=== PATIENT | female | born 1955 | race Caucasian/White ===

== ENCOUNTER → 2017-08-11 15:05 | Outpatient (CLI) | payer OTHER, SELFPAY ==
--- NOTE | 2017-08-11 15:08 | RAD_ITS ---
STUDY: X-RAY - RIGHT SHOULDER REASON FOR EXAM: Right shoulder pain. TECHNIQUE: 3 view(s) of the shoulder. COMPARISON: Radiographic report 01/16/2012. FINDINGS: There are small marginal osteophytes of the humeral head without narrowing of the glenohumeral articulation. There is mild acromioclavicular arthrosis. Normal acromion. Normal humeral head and visualized proximal humerus. The soft tissue structures are unremarkable. Normal visualized pulmonary apex. RAD/Shoulder min 2 Views IMPRESSION: Mild acromioclavicular arthrosis. Small marginal osteophytes of the humeral head. Electronically Signed: Jose Francisco Casey MD at 16:31 EST Tel , Service support ,
== END ==
PROVIDERS: Visit Provider Orthopaedic Surgery
DX: M25.511 Pain in right shoulder (principal)
CPT/HCPCS: 73030

== ENCOUNTER 2017-08-19 16:40 | Outpatient (RCR) | payer OTHER, SELFPAY ==
--- NOTE | 2017-08-30 23:43 | HP.PTEVAL ---
Patient's Visit Information PEE FISH is a 61 year old F referred to Physical Therapy by DO MARIBEL Aparicio with a diagnosis of Right rotator cuff syndrome. Date of Evaluation: 08/19/17 Physical Therapist: Yvon Carias - Visit Plan Frequency: 2x /Week Duration: 4 Weeks Plan: Start with phase II end range of motion, add in below shoulder height phase III strengthening. Pt. educated to maintain painfree strengthening/ROM and progress as toelrated. Pt. desires to trial HEP with both phase II and III on own for a few weeks and follow up with PT as needed. - Subjective Subjective: Pt is here today for her initial evaluation with diagnosis of R RTC syndrome, possible imingment, subscap pathology. Pt. denies any mechanism of injury, but started noticing R shoulder pain with popping and cracking, with raising her arm over her head. Pt. has trialed massage therapy without positive results. Pt. reports having increased pain with: lifing over head, reaching behind her back. Pt. reports pain starts at her R shoulder, but does radiate down her arm at times. Pt. denies N/T in either UE. Pt. has not trialed any exercises at this point in time. Pt. does feel weak, but no constant pain. She did have a recent injuection which has helped her symptoms. Pt. is hopeful to reduce symptoms to get back to all recreational activities without limitations. - Pain R shoulder Pain Intensity (Out of 10): 0 Pain Intensity Range: 0, 4 - Objective POSTURE: Pt. has slight rounded shoulder bilaterally. Pt. has normal arm positioning bilaterally. Pt. has slight scapular protraction bilaterally with ability to correct. Pt. has slight FH positioning. PALPATION: Pt. tenderness to palpation of anterior subacromial space. Pt. has no posterior shoulder pain to palpation. No UT or mid boarder scpaular pain. Mild pain at bicipital groove. No gabriella with L shoulder. NO cervical spine pain with palpation. NEUROLOGICAL: Pt. has normal sensation to light and sharp touch throughout bilateral UEs. Pt. has 2+ biceps and triceps DTR bilaterally. ROM: R shoulder- AROM- flexion 170deg mild increase NW at end range only, abd 160deg mild increase NW, functional ER C6 increase NW, functional IR T12 NE. L shoulder flexion 180deg NE, abd 180deg NE, functional ER C6, functional IR T10. Cervical spine- Normal ROM without increase in symptoms. MMT- LUE- wrist/elbow 5/5 throughout; shoulder- flexion 5/5, abd 5/5, ext 5/5, ER 5-/5, IR 5/5. RUE- wrist/elbow- 5/5 throughout NE, shoulder flexion- 4/5 increase NW, abd 4/5 increase NW, ER 4+/5 mild increase NW, IR 4/5 increase NW, ext 5/5 NE. - Special Tests R Shoulder Lift Off Test - Subscapular Tear: Positive R Shoulder Drop Sign - IS Test: Negative R Shoulder Empty Can - SS: Positive R Shoulder Belly Press - SupScap: Positive R Shoulder Neer - Impingement: Positive R Shoulder Wilson Oumar - Impingement: Positive R Shoulder Biceps Load Test - Labrum: Negative R Shoulder Speeds Test - Labrum/Biceps: Negative - Goals Goal 1:: Pt. to be I with HEP. Goal Time Frame: 4-6 Weeks Goal 2:: Pt. to have full R shoulder ROM without increase in symptoms. Goal Time Frame: 4-6 Weeks Goal 3:: Pt. to have increase R shoulder strength by 1/2 grade of all effected musculature to reduce stress on RTC with all functional activities. Goal Time Frame: 4-6 Weeks Goal 4:: Pt. to report no pain with sleeping allowing for increased quality of life. 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 Goal Time Frame: 4-6 Weeks - Rehabilitation Potential Physical Therapy Diagnosis: Pt. has signs and symptoms consistent with RTC pathology with possible subscapular partial tear. Pt. has weakness and pain with subscapularis testing. Pt. would benefit from PT to increase painfree ROM, progressing to increase postural strength, scapular strength and RTC stability in order to complete all ADLs without increase in symptoms. Rehabilitation Potential: Good - Anticipated Interventions Patient/Client Instruction: Educate patient on: Condition, Plan of Care, Risk Factors, Benefits of Fitness Program For the Purpose of:: To foster healthy habits, To improve decision making, To facilitate caregiver knowledge, To improve self management, To prevent re-injury, To improve ability to perform tasks related to life management, To improve tolerance to ADL's Therapeutic Exercise to Include: Strength training, Power training, Postural training, Flexibilty training, Passive ROM, Active ROM, Scapular Strength/Stabilization For the Purpose of:: To decrease pain, To decrease swelling/inflammation, To increase ROM, To improve nutrient delivery to tissue, To increase oxygenation perfusion, To improve muscle performance and motor function, To improve performance and independence with ADL's, To improve health of tissue, To decrease soft tissue restriction, To increase flexibility/ROM Manual Therapy Techniques to Include: Mobilization, Passive ROM For the Purpose of:: To decrease pain, To increase ROM, To improve nutrient delivery to tissue, To increase oxygenation perfusion, To improve muscle performance and motor function Thank you for the opportunity to evaluate your patient. For Medicare and Medicare HMO plans, please review the plan of care and approve it. It will need to be FAXED BACK to us at [phone] for Medicare purposes. Please let me know if there are questions or concerns regarding this plan of care. Physician Signature: Date:
--- NOTE | 2017-11-15 19:49 | HP.PTDCNRP_ITS ---
HP - Discharge Summary (1) - Patient Information PEE FISH was seen in my office for initial evaluation on 08/19/17. The following Plan of Care was established for this patient: Initial Frequency: 2x /Week Initial Duration: 4 Weeks - Anticipated Interventions Patient/Client Instruction: Educate patient on: Condition, Plan of Care, Risk Factors, Benefits of Fitness Program For the Purpose of:: To foster healthy habits, To improve decision making, To facilitate caregiver knowledge, To improve self management, To prevent re-injury , To improve ability to perform tasks related to life management, To improve tolerance to ADL's Therapeutic Exercise to Include: Strength training, Power training, Postural training, Flexibilty training, Passive ROM, Active ROM, Scapular Strength/ Stabilization For the Purpose of:: To decrease pain, To decrease swelling/inflammation, To increase ROM, To improve nutrient delivery to tissue, To increase oxygenation perfusion, To improve muscle performance and motor function, To improve performance and independence with ADL's, To improve health of tissue, To decrease soft tissue restriction, To increase flexibility/ROM Manual Therapy Techniques to Include: Mobilization, Passive ROM For the Purpose of:: To decrease pain, To increase ROM, To improve nutrient delivery to tissue, To increase oxygenation perfusion, To improve muscle performance and motor function This patient was last seen in our office 08/19/17. Pertinent comments regarding their Physical therapy will appear below: Pt. was seen for her initial evaluation with diagnosis fo RTC pathology. Pt. had signs of subscap issues. Pt. at this point in time desired to trial HEP on own and not formal PT. Pt.has not been seen in ~12 weeks and will be DC from PT at this point in time. At this point I will be discontinuing this patient from physical therapy. I would be happy to see this patient again in the future if found appropriate by the physician. Thank you! Yvon Carias
== END 2017-08-19 19:00 | disposition home or self-care (01) ==
LOC: PT 16:40
PROVIDERS: Family Provider Family Medicine; PCP Family Medicine; Visit Provider Orthopaedic Surgery
DX: M75.101 Unspecified rotator cuff tear or rupture of right shoulder, not specified as traumatic (principal); M25.811 Other specified joint disorders, right shoulder
CPT/HCPCS: 97110; 97161

== ENCOUNTER → 2017-10-27 17:38 | Outpatient (CLI) | payer OTHER, SELFPAY ==
--- NOTE | 2017-10-27 17:51 | MRI_ITS ---
STUDY: MRI RIGHT SHOULDER REASON FOR EXAM: Right shoulder pain, decreased range of motion, no specific injury. TECHNIQUE: Standardized fat and water weighted pulse sequences were obtained in all 3 orthogonal planes. COMPARISON: Radiographs 08/11/2017. FINDINGS: There is mild supraspinatus tendinosis (proton-density coronal images 11, 12) without discrete tendon tear. Normal infraspinatus tendon. There is mild subscapularis tendinosis (proton density axial images 11, 12) without discrete tendon tear. Normal teres minor tendon. Normal supraspinatus muscle. Normal infraspinatus muscle. Normal subscapularis muscle. Normal teres minor muscle. There is mild glenohumeral arthrosis with small marginal osteophytes of the humeral head and mild chondral irregularity (T2 coronal image 11). There is a small glenohumeral joint effusion. There is mild cystic change of the greater tuberosity. Normal biceps labral complex. Normal intracapsular long biceps tendon. Normal labrum. Normal capsulo- ligamentous complex. There is mild acromioclavicular arthrosis without undersurface osteophytes (T2 sagittal image 8). There is a Type I morphology (flat undersurface), with a neutral orientation. There is no subacromial-subdeltoid bursal fluid. Normal visualized coracohumeral and coracoacromial ligaments. Normal deltoid muscle. Normal trapezius muscle. MRI/Upper Ext Joint Only(Routine) IMPRESSION: Mild supraspinatus and subscapularis tendinosis without demonstrated rotator cuff tear. Mild glenohumeral arthrosis. Mild acromioclavicular arthrosis. Small glenohumeral joint effusion. Electronically Signed: Jose Francisco Casey MD at 7:49 EDT Tel , Service support ,
== END ==
PROVIDERS: Family Provider Family Medicine; PCP Family Medicine; Visit Provider Orthopaedic Surgery
DX: M75.101 Unspecified rotator cuff tear or rupture of right shoulder, not specified as traumatic (principal)
CPT/HCPCS: 73221

== ENCOUNTER → 2017-12-04 14:45 | Outpatient (CLI) | payer OTHER, SELFPAY ==
[2017-12-04 15:34] LABS: Absolute Lymphocyte Count 1.18 X10^3/ul (0.83-4.51); Absolute Neutrophil Count 5.6 X10^3/uL (2.0-7.7); Basophil# 0.02 X10^3/uL; Basophil% 0.3 % (0-1); Eosinophil# 0.14 X10^3/uL; Eosinophils% 1.8 % (0-5); Hematocrit 38.7 % (37-47); Hemoglobin 12.5 g/dl (12.0-15.0); Lymphocyte # 1.18 X10^3/ul (4.0); Lymphocyte % 15.5 % (19-41); Mean Corp Hgb Conc 32.3 g/gl (32-36); Mean Corpuscular Hgb 26.4 pg (27.0-32.0); Mean Corpuscular Volume 81.8 fL (81-99); Mean Platelet Vol. 10.7 fl (6.2-12.0); Monocyte# 0.61 X10^3/uL; Neutrophil # 5.63 X10^3/uL (2.7-7.7); Neutrophil % 74.1 % (47-70); Platelet Count 241 K/mm3 (150-450); RBC Distribution Width CV 14.9 % (11.6-14.6); RBC Distribution Width SD 44.8 fl (35.1-43.9); Red Blood Count 4.73 M/mm3 (4.2-5.4); White Blood Count 7.6 K/mm3 (4.4-11.0)
[2017-12-04 15:39] LABS: POSITIVE COUNT NO; POSITIVE DIFFERENTIAL NO; POSITIVE MORPHOLOGY NO
[2017-12-04 16:01] LABS: ALB/GLOB Ratio 0.9 RATIO (0.9-2.4); AST(SGOT) 19 U/L (15-37); Alanine Aminotransfer ALT/SGPT 27 U/L (13-56); Albumin, Serum 3.5 g/dL (3.2-5.0); Alkaline Phosphatase 79 U/L (45-117); Anion Gap 5 (5-15); BUN 19 mg/dL (7-18); BUN/Creat Ratio 19.6 RATIO (10-20); Calcium,Total 9.1 mg/dL (8.5-10.1); Chloride 104 mmol/L (98-107); Cholesterol 203 mg/dL (200); Creatinine, Serum 0.97 mg/dL (0.55-1.02); EST Glomerular Filtration Rate 62 mL/min (>60); Est Glom Filt Rate - Afr Amer 75 mL/min (>60); Glucose 84 mg/dL (74-106); High Density Lipoprotein 60 mg/dL; Potassium 3.8 mmol/L (3.5-5.1); Protein, Total 7.5 g/dL (6.4-8.2); Sodium Level 138 mmol/L (136-145); Thyroid Stim Hormone (TSH) 1.12 uIU/mL (0.358-3.74); Triglycerides 245 mg/dL; Very Low Density Lipoprotein 49 mg/dL (5-40)
== END ==
PROVIDERS: Family Provider Family Medicine; PCP Family Medicine; Visit Provider Family Medicine
DX: R53.83 Other fatigue (principal); R53.81 Other malaise
CPT/HCPCS: 36415; 80053; 80061; 84443; 85025

== ENCOUNTER → 2017-12-29 08:11 | Outpatient (CLI) | payer OTHER, SELFPAY ==
--- NOTE | 2017-12-29 08:14 | BD_ITS ---
STUDY: DUAL ENERGY X-RAY ABSORPTIOMETRY / DXA REASON FOR EXAM: Female, 62 years old. Early menopause. No loss of height. TECHNIQUE: Bone Mineral Density (BMD) measurements of lumbar spine and bilateral hips were obtained. COMPARISON: Comparison is made with prior study dated January 30, 2011. FINDINGS: Lumbar Spine (L1-L4): g/cm2 (0.867) / T-score (-2.5) / Z-score (-1.1) Findings are suggestive of osteopenia with a moderate fracture risk. Left Femur Total: g/cm2 (0.906) / T-score (-0.8) / Z-score (0.2) Left Femoral Neck: g/cm2 (0.889) / T-score (-1.1) / Z-score (0.2) Right Femur Total: g/cm2 (0.928) / T-score (-0.6) / Z-score (0.4) Right Femoral Neck: g/cm2 (0.977) / T-score (-0.4) / Z-score (0.9) The T-Scores on the most recent prior examination were: Lumbar Spine (L1-L4): There has been worsening of bone density since the previous examination. Left Femur Total: which represents an improvement of 2.6%. Right Femur Total: which represents a worsening of 1.0% . BD/Dexa Bone Density Study IMPRESSION: The patient is considered osteopenic as outlined below according to [place] Organization (WHO) criteria with a moderate fracture risk. There has been worsening of bone density since the previous examination. Reference Information: The T-score is the number of standard deviations above or below the standard which is normal for young adults at their peak bone mineral density. The World Health Organization (WHO) interprets the T-scores as follows: Above -1 Normal bone density Between -1 and -2.5 Osteopenia Equal to / or below -2.5 Osteoporosis As a practical clinical guideline, osteopenia may be graded as follows: Mild -1 through -1.5 Moderate -1.6 through -2.0 Severe -2.1 through -2.4 The Z-score is the number of standard deviations above or below age-matched controls. A Z-score of less than -1.5 would be considered abnormal. References: 1. NIH Osteoporosis and Related Bone Diseases http://www.osteo.org 2. International Society for Clinical Densitometry http://www.iscd.org 3. National Osteoporosis Foundation http://www.nof.org Electronically Signed: Stef Youngblood MD at 9:10 EDT Tel [phone], Service support ,
== END ==
PROVIDERS: Family Provider Family Medicine; PCP Family Medicine; Visit Provider Family Medicine
DX: M81.0 Age-related osteoporosis without current pathological fracture (principal)
CPT/HCPCS: 77080

== ENCOUNTER → 2018-01-09 07:09 | Outpatient (CLI) | payer OTHER, SELFPAY ==
--- NOTE | 2018-01-09 07:12 | BI_ITS ---
MAMMOGRAPHY - BILATERAL SCREENING REASON FOR EXAM: Female, 62 years old. Routine annual screening examination. PERTINENT HISTORY: Non-contributory. TECHNIQUE: Digital bilateral breast asiya (3D mammographic acquisition) in the CC and MLO projections. 2-D mediolateral oblique (MLO) and craniocaudad (CC) views of both breasts were obtained. CAD: Full Field Digital Mammography with Computer Added Detection was performed. COMPARISON: Comparison is made with prior outside examination dated December 27, 2014. FINDINGS: Breast Composition: The breasts are almost entirely fatty. There are no dominant masses or suspicious calcifications. Stable 2 mm well-defined nodule in the axillary region of the left breast and keep with a small lymph node. No other significant abnormalities are identified. There has been no significant change since the prior study. BI/SCREENING MAMM (CAD), BILAT IMPRESSION: Stable bilateral screening mammogram. Yearly follow-up mammogram recommended. (A) ASSESSMENT CATEGORY: BIRADS Category 2: Benign. A letter regarding these results will be sent to the patient by the facility within 30 days. Approximately 10% of breast cancers are not detected by mammography. A normal mammogram should not delay biopsy of a clinically suspicious abnormality. [id number] Electronically Signed: Stef Youngblood MD at 9:01 EDT Tel [phone], Service support ,
== END ==
PROVIDERS: Family Provider Family Medicine; PCP Family Medicine; Visit Provider Family Medicine
DX: Z12.31 Encounter for screening mammogram for malignant neoplasm of breast (principal)
CPT/HCPCS: 77063; 77067

== ENCOUNTER → 2018-01-20 06:41 | Outpatient (CLI) | payer OTHER, SELFPAY ==
--- NOTE | 2018-01-20 06:44 | CT_ITS ---
STUDY: CT SOFT TISSUE NECK WITH CONTRAST REASON FOR EXAM: Female, 62 years old. Possible mass in the mid neck. RADIATION DOSAGE (If Supplied By Facility): CTDIvol = ( 16.78 ) mGy, DLP = ( 435.60 ) mGycm TECHNIQUE: The patient was scanned in a multi-detector CT scanner. High resolution transaxial imaging was performed following intravenous administration of 100 ml of Isovue 300 contrast material. Sagittal and coronal images were reconstructed. A metallic BB was reportedly placed over the possible mid neck mass. Individualized dose optimization techniques were used for this CT. COMPARISON: None. FINDINGS: I do not see metallic BB overlying the mid neck. There is a metallic BB overlying the right clavicular head. There is no visualized soft tissue mass or fluid collection in this region. There is no abnormal infiltration of subcutaneous fat in this region. There is no abnormal enlargement of the right clavicular head. Normal bilateral parotid glands. Normal bilateral customer assistance representative spaces. Normal bilateral parapharyngeal spaces. Normal bilateral carotid spaces. Normal bilateral sublingual and submandibular glands and spaces. Normal visualized nasopharynx. Normal retropharyngeal space. Normal perivertebral space. Normal visualized bilateral faucial tonsils. The visualized tongue, tongue base and oropharynx are normal. The visualized cervical lymph nodes (levels I-) are within normal size limits, and maintain normal morphology. There is no demonstrated solid or cystic mass lesion. There is no abnormal contrast enhancement. Normal epiglottis, bilateral vallecula and hypopharynx. The pre-epiglottic and paraglottic adipose spaces are normal. Normal visualized bilateral piriform sinuses, aryepiglottic folds, vocal cords, and arytenoid-cricoid articulations. Normal subglottic trachea. Normal bilateral lobes of the thyroid gland. Normal visualized pulmonary apices. Normal visualized paranasal sinuses. There is multilevel degenerative changes of the cervical spine. CT/Soft Tissue Neck WITH Contrast IMPRESSION: Normal enhanced CT examination of the soft tissues of the neck. Electronically Signed: Hi Do MD at 3:43 EDT , Service support ,
[2018-01-20 07:16] LABS: CREATININE FINGERSTICK 0.9 mg/dL (0.55-1.02); EGFR FINGERSTICK > 60.0000 mL/min (>60)
== END ==
PROVIDERS: Family Provider Family Medicine; PCP Family Medicine; Visit Provider Otolaryngology Otolaryngology/Facial Plastic Surgery
DX: E07.9 Disorder of thyroid, unspecified (principal)
CPT/HCPCS: 70491

== ENCOUNTER → 2018-04-19 16:19 | Outpatient (CLI) | payer OTHER, SELFPAY ==
--- NOTE | 2018-04-19 16:22 | RAD_ITS ---
STUDY: X-RAY CHEST REASON FOR EXAM: Female, 62 years old. Cough for one week. TECHNIQUE: PA and lateral chest. COMPARISON: None. FINDINGS: The lungs are clear and expanded. There is no demonstrated pleural abnormality. Normal size heart. Normal mediastinum and ronny. Normal visualized pulmonary arteries. Normal visualized aortic arch and descending thoracic aorta. Normal visualized thoracic spine. Normal visualized ribs, clavicles, and shoulders. There is no demonstrated abnormality of the visualized soft tissue structures of the upper abdomen. RAD/Chest PA and Lateral IMPRESSION: No acute cardiopulmonary disease. Electronically Signed: Conner Lewis MD at 8:10 EST , Service support ,
== END ==
PROVIDERS: Family Provider Family Medicine; PCP Family Medicine; Referring Provider Otolaryngology Otolaryngology/Facial Plastic Surgery; Visit Provider Otolaryngology Otolaryngology/Facial Plastic Surgery
DX: R05 Cough (principal)
CPT/HCPCS: 71046

== ENCOUNTER → 2018-04-21 07:39 | Outpatient (CLI) | payer OTHER, SELFPAY | PROVIDERS: Family Provider Family Medicine; PCP Family Medicine; Referring Provider Otolaryngology Otolaryngology/Facial Plastic Surgery; Visit Provider Otolaryngology Otolaryngology/Facial Plastic Surgery | DX: R05 Cough (principal) | CPT/HCPCS: 87070; 87205 ==

== ENCOUNTER 2018-05-10 16:11 | Inpatient (IN) | payer OTHER, SELFPAY ==
[2018-05-10] VITALS (24 sets, daily range): BP systolic 78–143; BP diastolic 61–107; PULSE 70–108; RESP 12–22; TEMP 35.7–37.7; O2SAT 89–100; BMI 27.9; BMI 26.6
--- NOTE | 2018-05-10 | TESH_PTH ---
PATIENT: PEE FISH LOC: [facility] U#:[id number] AGE/SX: 62/F ROOM: MS217 RE05/10/[address]: Dr. Dillan Sewell MD : 1955 BED: 1 DIS: 05/13/2018 SPEC #: [id number] RECD: 05/10/18 13:48 STATUS: GILBERT AGUSTIN #: [id number] AARON: 05/10/18 00:[address]: Kateryna Snyder DEPT: SURGICAL PATHOLOGY RECD BY: Manuel Weller ENTERED: 05/10/18 13:49 SP TYPE: TENDON OTHR DR: Dr. Sherita Hendricks MD Tissues: Tendon and tendon sheath, NOS Procedures: Surgery Specimen Level III HEADER OPERATION: Right shoulder arthroscopy, subacromial decompression PRE-OP DIAGNOSIS: Right shoulder pain TISSUE SUBMITTED: Portion of biceps tendon, right MICROSCOPIC DIAGNOSIS Portion of biceps tendon, right: A piece of dense fibroconnective tissue with reactive changes. TRACI:minh 05/11/18 MICROSCOPIC DESCRIPTION Slides are reviewed. GROSS DESCRIPTION Received in fixative is one container labeled with the patient's name and designated portion of biceps tendon. The specimen consists of a piece of westfall, indurated tissue measuring 4 x 0.5 x 0.2 cm. The specimen is sectioned and submitted entirely in one cassette. / TRACI:minh 05/10/18 TC:5 CPT: 63873
[2018-05-10] MEDS: Cefazolin 2 GM in 0.9% Normal Saline 100 ML IV (11:02)
--- NOTE | 2018-05-10 12:06 | DCINST_ITS ---
Discharge Diet: No Restrictions - may move shoulder and hand as much as tolerated, do not actively flex elbow, remove dressings in 4 days and apply bandaids to incision sites and may get incision wet at that time, follow up in 2 weeks, call with concerns Discharge Activity: May Not Drive May shower in (days): 1 Ice area for (Minutes): 20 - Every hour while awake. Weight Bearing Status: Weight bearing as tolerated Keep extremity elevated above heart level: Operative Extremity Call your doctor if your incision/area has: Continuous Slow Oozing, Sudden Increased Bleeding, Increased Pain/ Swelling, Increased Redness, Foul Smelling Discharge Call your doctor if you observe: Fever of 101 or Higher, Coldness, Increased Pain, Numbness or Tingling, Change in Color, Calf discomfort Allergies/Adverse Reactions: Allergies alendronate sodium [From Fosamax] Allergy (Mild, Verified 02/18/18 15:39) unknown penicillin V Allergy (Mild, Verified 02/18/18 15:39) rash Medications to take at Discharge acetaminophen 325 mg tablet 325 mg PO Q6H PRN 08/11/17 ibuprofen 200 mg tablet 200 mg PO DAILY 08/11/17 rosuvastatin 10 mg tablet 20 mg PO DAILY 08/11/17 sertraline 50 mg tablet 100 mg PO QDAY 08/11/17 Acetaminophen/Codeine #3 [Tylenol #3 Tablet] 1 - 2 tablet PO Q6H PRN PRN 5 Days #30 tablet 05/10/18 Zolpidem Tartrate [Ambien (Generic)] 5 mg PO QHS PRN PRN #14 tablet 05/10/18 The following prescriptions were given: Acetaminophen/Codeine #3 [Tylenol #3 Tablet] 1 - 2 tablet PO Q6H PRN PRN 5 Days #30 tablet PRN Reason: Pain Zolpidem Tartrate [Ambien (Generic)] 5 mg PO QHS PRN PRN #14 tablet PRN Reason: Insomnia Orders to be completed after discharge: 12 Lead EKG [[facility]] Time Frame: 05/05/18, Location: None Selected Primary Care Physician: Sherita Hendricks MD [Primary Care Provider] - Test Results: Test results from this visit will be discussed in further detail at your follow- up appointment, if applicable. Please Follow Up With: Kateryna Snyder, - [phone]
[2018-05-10] MEDS: Mupirocin Ointment 22gm Tube 1 APPLIC (12:08)
[2018-05-10] MEDS: Triamcinolone Acetonide 40 MG/ML Vial (12:12)
--- NOTE | 2018-05-10 12:13 | OP.PCM_ITS ---
Report of Operation Date of Procedure: 05/10/18 Pre-Operative Diagnosis: right shoulder arthritis, subacromial impingment, biceps tendinosis, ac arthritis Post-Operative Diagnosis: same Surgery/Procedure Performed:: sars, intraarticular debridement, subacromial decomprssion/acromioplasty, distal clavicle excision, open subpec biceps tenodesis sales support assistant: Eliazar Concepcion Type of Anesthesia:: General/Regional Anesthesiologist: Felix Blanco Specimen's removed: biceps tendon Estimated Blood Loss (mL): minimal Fluids Replaced: 1400cc LR Description of Procedure: Preoperative note Patient is a 62-year-old female with continued right shoulder pain. Pain in the biceps positive Neer positive Wilson positive speeds positive cross body abduction. Patient failed conservative treatment like to proceed with right shoulder arthroscopy repair is indicated. Next Patient also has having left ankle pain and wanted to have the injection done while she was still sleeping. Wrist benefits and alternatives surgery discussed with patient. Risks include but not limited to blood loss, blood clot, infection, neurovascular injury, failure procedure, loss of life and loss of limb. Patient is aware like proceed with right shoulder arthroscopy repair is indicated left intra-articular ankle injection. Operative note Patient seen and examined preoperative holding area. Right shoulder was marked. Patient received a preoperative regional block. Patient was brought to the operating room and placed supine on the operating table. Sign, anesthesia, antibiotics were administered. Patient was placed in beachchair positioning senior care through position she was her blood pressure was rechecked which was stable throughout. Patient was prepped and draped in usual sterile fashion with arm and arm coleman. We then marked out our bony landmarks for portal placements. The right shoulder from the posterior aspect was insufflated with 60 cc of normal saline we had good flush and return from our posterior portal. We then performed our timeout using 11 blade blade to create her anterior posterior portal. We then began our diagnostic arthroscopy. She had chondral lesion above of at least a 2 throughout her entire humeral head does articulate with the glenoid she had 3 in about a 2 x 3 cm articulating aspect on the central aspect of her humerus matching with a kissing lesion of a grade 3 of about 2 x 3 on her glenoid as well. Her biceps was unstable at its root we then created an anterior portal under direct visualization. The biceps biceps was unstable and thickened. Her subscap was intact her rotator cuff had a slight leading edge tear at the anterior edge but appear to be a articular sided only we would check some bursal sided at that point. We then inserted a shaver and debrided back the unstable synovitis that was in the anterior aspect of her shoulder as well as some chondral loose chondral pieces. We released the biceps tendon at its insertion and resected back the labrum to stable rim with a shaver. We then moved to the subacromial space. We created a lateral portal under direct visualization. There is extensive bursitis throughout her shoulder. Use a combination of a shaver and a burner to resect the thickened bursa. The AC joint was also hypertrophic we then created a trans-AC portal and then shaved off about 7 mm from the distal clavicle and 2 mm from the acromion for about a centimeter of increased space of her AC joint as she was quite tender preoperatively. We then performed a little bit of an acromioplasty as well as a little bit of a jagged edged to that ankle plantar acromion. We irrigated the subacromial space copious muscle sterile saline and moved to our open biceps tenodesis piece. We reprepped the entire area waited the allotted time and we had preoperatively marked out our incision as well. He is a 15 blade to cut through the skin and tenotomy dissect down to the level of the biceps the biceps was then brought out of the incision and truncated appropriate length measured with the arm in extension. We then used a burner to a burn the site for our pec button flipped. We whipstitched the end of the biceps and truncated the remaining send it to pathology for further evaluation. We then unicortically drilled into the humerus flipped the button and then oversewed the tendon with the loose ends of the suture. We then irrigated the incision with copious amounts of sterile saline. We closed the skin with 3-0 Vicryl in a running 4 Monocryl the portals with interrupted 4 nylons stitches. Sterile dressings were applied patient was placed in a sling. Patient tolerated procedure well there are no complications we then moved to the left ankle left ankle was prepped under standard fashion the intra-articular joint was injected with 4 cc of bupivacaine 1 cc of Kenalog. Patient tolerated procedure well there are no comp occasions transferred to recovery room in stable condition. Postoperative note Hospital pharmacy has prescriptions as We will give pictures to family pictures in 2 weeks May move shoulder and hand did not move the elbow actively Call with increased pain numbness tingling or further issues arise This note was generated with [employer] software. It may contain incorrect words, spelling, and punctuation that were not noted in checking the note before signing. Grafts/Implants Used: arthrex pec button
--- NOTE | 2018-05-10 13:30 | RAD_ITS ---
STUDY: X-RAY CHEST REASON FOR EXAM: Female, 62 years old. Respiratory distress during surgery TECHNIQUE: Single AP portable view of the chest. COMPARISON: 04/19/2018 FINDINGS: Patient has been intubated with tip of the ET tube directly at the jonathan. Recommend retraction by roughly 3.3 cm. Lungs are adequately inflated however, development of patchy airspace disease in the perihilar distribution bilaterally. Heart size is within normal limits RAD/Chest 1 View (Portable) IMPRESSION: Recommend retraction of the ET tube as above. Development of patchy airspace disease in the perihilar region bilaterally Electronically Signed: Ahsan Harding DO at 14:41 EST Tel , Service support ,
--- NOTE | 2018-05-10 13:34 | RAD_ITS ---
STUDY: X-RAY CHEST REASON FOR EXAM: Female, 62 years old. Endotracheal tube placement. TECHNIQUE: Frontal view of the chest COMPARISON: 05/10/2018 at 1:29 PM FINDINGS: There is an endotracheal tube noted with its tip approximately 2 cm above the jonathan. There is an enteric tube noted with its tip in the stomach. There are worsening bilateral perihilar airspace opacities which are likely due to pulmonary edema. The heart is normal in size. The visualized osseous structures are within normal limits. RAD/Chest 1 View (Portable) IMPRESSION: Satisfactory position of the support lines and tubes. Worsening bilateral perihilar opacities which are likely due to pulmonary edema. Electronically Signed: Jose Encarnacion, at 16:18 EST Tel , Service support ,
[2018-05-10] MEDS: Propofol 10MG/Ml 1,000 MG/100 ML Bottle 4.224 MG CONT INF (14:35)
[2018-05-10] MEDS: fentaNYL drip 100 ML 2.5 MCG IV (14:38)
--- NOTE | 2018-05-10 14:42 | CPS ---
Patient intubated in PACU.
--- NOTE | 2018-05-10 14:49 | EKG12_ITS ---
Test Reason : PREOP Blood Pressure : / mmHG Vent. Rate : 078 BPM Atrial Rate : 078 BPM P-R Int : 160 ms QRS Dur : 088 ms QT Int : 376 ms P-R-T Axes : 026 -04 045 degrees QTc Int : 428 ms Normal sinus rhythm Normal ECG No previous ECGs available Confirmed by BASILIA JARRELL, JOSE ([id number]), index editor ABIODUN ACUÑA ([id number] on 05/14/2018 2:15:02 PM Referred By: Kateryna Snyder Confirmed By:JOSE CUI MD
--- NOTE | 2018-05-10 15:16 | RAD_ITS ---
STUDY: X-RAY CHEST REASON FOR EXAM: Female, 62 years old. Endotracheal tube placement. Orogastric tube placement. TECHNIQUE: Single AP portable view of the chest. COMPARISON: Comparison is made with prior examination dated April 19, 2018. FINDINGS: The endotracheal tube is at the level of the jonathan. This should be withdrawn approximately 2.5 cm. There is evidence of bilateral perihilar alveolar disease suggestive of a pulmonary edema. There is no demonstrated pleural abnormality. Normal size heart. Normal mediastinum and ronny. Normal visualized pulmonary arteries. Normal visualized aortic arch and descending thoracic aorta. Normal visualized thoracic spine. Normal visualized ribs, clavicles, and shoulders. There is no demonstrated abnormality of the visualized soft tissue structures of the upper abdomen. RAD/Chest 1 View (Portable) IMPRESSION: The tip of the endotracheal tube is at the level of the jonathan. It should be pulled back approximately 2.5 cm. Pulmonary edema. Electronically Signed: Stef Youngblood MD at 15:54 EST Tel [phone], Service support ,
--- NOTE | 2018-05-10 15:20 | PCM.CON.CC ---
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 Patient had failed conservative outpatient therapy, so surgical intervention was recommended. Patient reportedly was of her usual health prior to the procedure. Patient reportedly had tolerated the procedure well, but postoperatively started to have difficulty. Patient was noted to be hypoxic and short of breath. Per anesthesia, patient was given flumazenil, Narcan and paralytic reversal without improvement. Attempts at LMA stabilization were unsuccessful, the patient was intubated with a 7.5 endotracheal tube and admitted to the intensive care unit. On arrival, patient was sedated and not able to answer questions. Most of the history was per the medical record. Patient was noted to be hypoxic requiring 8 of PEEP and FiO2 of 60%. Over the course of patient's ICU stay, oxygenation continued to get worse. Patient currently is on 12 of PEEP and 80% FiO2. Patient was attempted to be placed on propofol therapy, but developed significant hypotension. ABG showed a mixed acidosis, so tidal volume was increased to 500 and respiratory rate to 14. Patient's was updated at the bedside at approximately 3:30 PM on patient status. Did discuss directly with anesthesia about patient's operative course. No aspiration event was reported. Patient did not have any episodes of inhalation against a closed glottis that they are aware of. Patient initially was treated with a preoperative regional block. Patient reportedly was mildly responsive to flumazenil therapy. Past Medical History Past Medical History (Chronic Problems): Chronic Problems (Last Updated 08/11/17 @ 14:55 by Clementine Rosales) Subacromial impingement of right shoulder (Chronic) Biceps tendonosis of right shoulder (Chronic) Arthritis of right shoulder region (Chronic) Medical History: Medical History (Last Updated 08/11/17 @ 14:55 by Clementine Rosales) Anxiety F41.9 Hyperlipidemia E78.5 Seasonal allergies J30.2 History of hysterectomy Z98.890, Z90.710 Allergies alendronate sodium [From Fosamax] Allergy (Mild, Verified 02/18/18 15:39) unknown penicillin V Allergy (Mild, Verified 02/18/18 15:39) rash Home Medications: Ambulatory Orders Medication Instructions Recorded acetaminophen 325 mg tablet 325 mg PO Q6H PRN 08/11/17 ibuprofen 200 mg tablet 200 mg PO DAILY 08/11/17 rosuvastatin 10 mg tablet 20 mg PO DAILY 08/11/17 sertraline 50 mg tablet 100 mg PO QDAY 08/11/17 Acetaminophen/Codeine #3 [Tylenol 1 - 2 tablet PO Q6H PRN PRN 5 Days 05/10/18 #3 Tablet] #30 tablet Zolpidem Tartrate [Ambien 5 mg PO QHS PRN PRN #14 tablet 05/10/18 (Generic)] Surgical History: Surgical History (Last Updated 08/11/17 @ 14:56 by Clementine Rosales) History of Z98.891 History of tonsillectomy and adenoidectomy Z98.890 Smoking Status: Never smoker Review of Systems Unable to obtain accurate/complete ROS d/t: Intubated and sedated Patient Problems: Active and Suspected Problems (Last Updated 08/11/17 @ 14:55 by Clementine Rosales) Acute respiratory failure with hypoxia (Acute) Objective: Chest x-rays were personally reviewed. Endotracheal tube is slightly low, but patient does have bilateral alveolar infiltrates and a hilar pattern. She was also noted to have pink, frothy secretions. Patient is never had pulmonary function test or echocardiogram previously. - Physical Exam General: - - Intubated and sedated. Good vent synchrony noted. No accessory muscle use is noted. HEENT: Atraumatic, PERRLA, EOMI, Normocephalic, - - No scleral icterus or injection noted. Oral: Moist Mucosa, No Gingival or Mucosal Lesions/ Ulcerations Neck: Supple, No JVD, No Nodes, Trachea Midline Lungs: No rhonchi, No wheeze, Rales - Right base primarily, - - Symmetric expansion. No dullness to percussion. Cardiovascular: Normal S1, Normal S2, No murmurs, No rub noted, No Gallop, Tachycardic Abdomen: Bowel Sounds Present, Soft, Non Tender, Non-Distended Extremities: No clubbing, No cyanosis, No edema, Capillary Refill Less than 3 Seconds, - - Right arm bandaged and in a sling Skin: Incision - Was not evaluated, but dressing is clean, dry and intact Musculoskeletal: No Tenderness to Palpation of Joints or Extremities Lymphatic: No Cervical, Supraclavicular, or Inguinal Adenopathy Neurological: - - Positive gag and cough reflexes. Pupils equal round and reactive to light. Some spontaneous movement of the extremities noted. Psych/Mental Status: Flat Affect Vital Signs Temp Pulse Resp BP Pulse Ox 37.7 C H 108 H 12 143/70 H 89 05/10/18 09:16 05/10/18 13:52 05/10/18 13:52 05/10/18 09:16 05/10/18 14:52 Oxygen Delivery Method Mechanical Ventilator Weight: 67.5 kg Body Mass Index (BMI) 26.6 Intake and Output for Last 24 Hours 05/08/18 05/09/18 05/10/18 23:59 23:59 23:59 Output Total 325 / 325 Balance -325 / -325 Laboratory Results - last 24 hr 05/10/18 15:15 Specimen Type ART Sample Site L Brachial pH 7.30 L Bicarbonate Actual 23.6 POC Total CO2 25 Base Excess -3 L O2 Saturation 90 L O2 % 85 ABG pCO2 48.2 H ABG pO2 64 L Duglas Test NA Respiration Rate 12 O2 Delivery Device Vent Vent Mode A-C Tidal Volume 450 POC PEEP 10 Blood Gas Notified Whom ICU MD Blood Gas Notified Time 1504 Assessment/Plan Active and Suspected Problems (Last Updated 08/11/17 @ 14:55 by Clementine Rosales) Acute respiratory failure with hypoxia (Acute) RECOMMENDATIONS: 1. High PEEP strategy for oxygenation 2. Increase tidal volume to compensate for respiratory acidosis 3. Wean oxygen as tolerated 4. Obtain chemistries, possibly additional Lasix therapy 5. Spontaneous breathing and awakening trials per protocol 6. Obtain echocardiogram IMPRESSIONS: 1. Acute hypoxic respiratory failure Patient appears to be in acute pulmonary edema. Unclear etiology at this time. Patient did not have any reported aspiration events. Patient did not have any negative pressure events reported. Patient does appear to have an alveolar pattern on chest x-ray is requiring elevated PEEP and FiO2. Will use a high PEEP strategy for oxygenation. Patient was given 20 mg of Lasix. Will obtain chemistries prior to additional doses of Lasix. We will also obtain an echocardiogram for evaluation of cardiac function. 2. Hyperlipidemia/right shoulder surgery postop day #0 Complicates care, management, recovery and prognosis. Orthopedic surgery is currently following. TIME: 45 minutes critical care time spent addressing patient's acute hypoxic respiratory failure, review of all data and collaboration with care team (2 PM to 3:40 PM) Code Visit [id number]: [id number] Critical care first hour
[2018-05-10 15:21] LABS: Base Excess -3 mmol/L (-2 to +2); Bicarbonate 23.6 mmol/L (22-26); Blood Gas Specimen Type ART; FI02 85; Mode A-C; O2 Delivery Device Vent; PEEP 10; PO2 64 mmHG (75-100); RR 12; SITE L Brachial; SO2 90 % (95-99); Time Given 1504; Total Carbon Dioxide 25 mmol/L; Vt 450; pCO2 48.2 mmHg (35-45)
--- NOTE | 2018-05-10 15:34 | ECHOCS_ITS ---
Reason For Study: Dyspnea/SOB Procedure This was a 2D Doppler, Color Flow transthoracic echocardiogram. The study was technically difficult. Contrast injection was performed. Exam performed portable in ICU/CCU. Left Ventricle Normal LV size. Left ventricular systolic function is normal. The estimated ejection fraction is 65 %. No evidence for diastolic dysfunction. No regional wall motion abnormalities noted. Right Ventricle Normal RV size. Normal systolic function. Atria Normal left atrium. Normal right atrium. No doppler evidence for ASD. Mitral Valve There is no mitral annular calcification. Normal mitral valve. Tricuspid Valve Normal tricuspid valve. Trivial tricuspid valve insufficiency. Right ventricular systolic pressure estimated to be 23 mmHg. Aortic Valve Trisinus/trileaflet aortic valve. Normal aortic valve. Pulmonic Valve The pulmonic valve is not well visualized. Trivial pulmonic valve insufficiency. Great Vessels The aortic root is not well visualized. Pericardium/Pleural No pericardial effusion. Medication Diluted definity 4ml given slow IV push to enhance endocardial definition. MMode/2D Measurements & Calculations LVIDd: 4.0 cm IVSd: 1.0 cm LVIDs: 2.8 cm LVPWd: 0.92 cm LVAd ap4: 18.2 cm2 FS: 29.5 % EDV(MOD-sp4): 46.4 ml EDV(sp4-el): 48.0 ml LVAs ap4: 9.4 cm2 ESV(MOD-sp4): 15.7 ml ESV(sp4-el): 16.3 ml EF(MOD-sp4): 66.1 % EF(sp4-el): 66.1 % SV(MOD-sp4): 30.7 ml SV(sp4-el): 31.7 ml Time Measurements MV dec time: 0.23 sec Doppler Measurements & Calculations MV E max francis: 63.6 cm/sec Lat Peak E' Francis: 7.4 cm/sec Med Peak E' Francis: 6.9 cm/sec MV A max francis: 95.1 cm/sec E/E' lat: 8.6 E/E' med: 9.2 MV E/A: 0.67 MV V2 max: 107.9 cm/sec MV P1/2t max francis: 76.1 cm/sec Ao V2 max: 118.5 cm/sec MV max P.7 mmHg MV P1/2t: 78.3 msec Ao max P.6 mmHg MV V2 mean: 50.0 cm/sec Ao V2 mean: 81.9 cm/sec MV mean P.2 mmHg MV dec slope: 284.7 cm/sec2 Ao mean P.0 mmHg MV V2 VTI: 29.5 cm MVA(P1/2t): 2.8 cm2 Ao V2 VTI: 23.0 cm LV V1 max: 112.9 cm/sec PA V2 max: 82.8 cm/sec TR max francis: 220.9 cm/sec LV V1 max P.1 mmHg TR max P.5 mmHg LV V1 mean P.5 mmHg LV V1 mean: 73.5 cm/sec LV V1 VTI: 22.7 cm Interpretation Summary The study was technically difficult. Contrast injection was performed. Left ventricular systolic function is normal. The estimated ejection fraction is 65 %. Trivial tricuspid valve insufficiency. Trivial pulmonic valve insufficiency. Right ventricular systolic pressure estimated to be 23 mmHg. No evidence for diastolic dysfunction. Ordering Physician: Sukumar Contreras Referring Physician: Kateryna Snyder Performed By: Silvano Jacinto RCS
[2018-05-10 16:34] LABS: Absolute Lymphocyte Count 0.95 X10^3/ul (0.83-4.51); Absolute Neutrophil Count 15.1 X10^3/uL (2.0-7.7); Basophil# 0.01 X10^3/uL; Basophil% 0.1 % (0-1); Eosinophil# 0.01 X10^3/uL; Eosinophils% 0.1 % (0-5); Hematocrit 41.7 % (37-47); Hemoglobin 13.9 g/dl (12.0-15.0); Lymphocyte # 0.95 X10^3/ul (4.0); Lymphocyte % 5.6 % (19-41); Mean Corp Hgb Conc 33.3 g/gl (32-36); Mean Corpuscular Hgb 26.1 pg (27.0-32.0); Mean Corpuscular Volume 78.2 fL (81-99); Mean Platelet Vol. 11.5 fl (6.2-12.0); Monocyte% 5.3 % (0-10); Neutrophil % 88.6 % (47-70); Platelet Count 273 K/mm3 (150-450); Red Blood Count 5.33 M/mm3 (4.2-5.4)
[2018-05-10 16:36] LABS: Anion Gap 10 (5-15); BUN 12 mg/dL (7-18); BUN/Creat Ratio 12.7 RATIO (10-20); Calcium,Total 8.3 mg/dL (8.5-10.1); Chloride 103 mmol/L (98-107); Creatinine, Serum 0.94 mg/dL (0.55-1.02); EST Glomerular Filtration Rate 64 mL/min (>60); Est Glom Filt Rate - Afr Amer 77 mL/min (>60); Estimated Creatinine Clearance 49.08 ml/min; Glucose 180 mg/dL (74-106); Magnesium 1.6 mg/dL (1.6-2.6); Phosphorus 4.5 mg/dL (2.5-4.9); Potassium 4.5 mmol/L (3.5-5.1); Sodium Level 136 mmol/L (136-145)
[2018-05-10 16:38] LABS: POSITIVE COUNT NO; POSITIVE DIFFERENTIAL NO; POSITIVE MORPHOLOGY NO
[2018-05-10 16:43] LABS: CPK Total, Creatine Kinase 119 U/L (26-192); Triglycerides 284 mg/dL
[2018-05-10 17:24] LABS: Hematocrit 40.9 % (37-47); Hemoglobin 13.2 g/dl (12.0-15.0); Mean Corp Hgb Conc 32.3 g/gl (32-36); Mean Corpuscular Hgb 25.1 pg (27.0-32.0); Mean Corpuscular Volume 77.8 fL (81-99); Mean Platelet Vol. 10.9 fl (6.2-12.0); Platelet Count 252 K/mm3 (150-450); RBC Distribution Width CV 14.7 % (11.6-14.6); RBC Distribution Width SD 41.2 fl (35.1-43.9); Red Blood Count 5.26 M/mm3 (4.2-5.4); White Blood Count 16.4 K/mm3 (4.4-11.0)
[2018-05-10 17:31] LABS: Scan Indicated on CBC? Y/N NO
--- NOTE | 2018-05-10 18:24 | HP.PCM_ITS ---
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 She denies history of smoking, COPD, chronic heart disease including CHF or coronary artery disease. She was on her usual health before surgery. As per the anesthesiologist, after the patient was extubated was noted to be hypoxic and short of breath. LMA stabilization was tried but unsuccessful. Patient was given Narcan, flumazenil and paralytic reversal medicine but unsuccessful and was later on reintubated, put on ventilator and admitted in the ICU. Chest x-ray shows central, bilateral pulmonary edema. Twelve-lead EKG at 8:38 AM showed normal sinus rhythm, normal axis, QRS duration 88 ms at 78 beats per min. Patient was seen by our public relations specialist. Currently on 40% FiO2, PEEP 12, tidal volume 500 and respiratory rate 14. Patient dropped blood pressure on propofol therapy therefore currently on fentanyl drip only. The patient had seen Dr. Arias, ENT for sinusitis and was given antibiotic and cold medication about 2-3 weeks ago. As per the patient's daughter, Ms. Devries and the patient's , she had difficulty in arousal after previous surgeries like hysterectomy and tonsillectomy at age 55 but not to this degree. [] Past Medical History Past Medical History (Chronic Problems): Chronic Problems (Last Updated 08/11/17 @ 14:55 by Clementine Rosales) Subacromial impingement of right shoulder (Chronic) Biceps tendonosis of right shoulder (Chronic) Arthritis of right shoulder region (Chronic) Medical History: Medical History (Last Updated 08/11/17 @ 14:55 by Clementine Rosales) Anxiety F41.9 Hyperlipidemia E78.5 Seasonal allergies J30.2 History of hysterectomy Z98.890, Z90.710 Allergies alendronate sodium [From Fosamax] Allergy (Mild, Verified 02/18/18 15:39) unknown penicillin V Allergy (Mild, Verified 02/18/18 15:39) rash Home Medications: Ambulatory Orders Medication Instructions Recorded acetaminophen 325 mg tablet 325 mg PO Q6H PRN 08/11/17 ibuprofen 200 mg tablet 200 mg PO DAILY 08/11/17 rosuvastatin 10 mg tablet 20 mg PO DAILY 08/11/17 sertraline 50 mg tablet 100 mg PO QDAY 08/11/17 Acetaminophen/Codeine #3 [Tylenol 1 - 2 tablet PO Q6H PRN PRN 5 Days 05/10/18 #3 Tablet] #30 tablet Zolpidem Tartrate [Ambien 5 mg PO QHS PRN PRN #14 tablet 05/10/18 (Generic)] Surgical History: Surgical History (Last Updated 08/11/17 @ 14:56 by Clementine Rosales) History of Z98.891 History of tonsillectomy and adenoidectomy Z98.890 Smoking Status: Never smoker Review of Systems Constitutional: Denies: Chills, Fever, Malaise, Weakness Unable to obtain accurate/complete ROS d/t: Patient is intubated, sedated on ventilator VTE Information - Inpt Only VTE Present on Admission: No VTE Mechan Device Prophylaxis: SCD's VTE Pharm Prophylaxis ordered?: Yes Patient Problems: Active and Suspected Problems (Last Updated 08/11/17 @ 14:55 by Clementine Rosales) Acute respiratory failure with hypoxia (Acute) Pulmonary edema (Acute) - Physical Exam General: - - Sedated on fentanyl drip HEENT: Atraumatic, PERRLA, EOMI, Normocephalic Oral: - - ET and OG tube Neck: Supple, No JVD, Negative Carotid Bruits Lungs: No rhonchi, - - On ventilator, volumes controlled FiO2 40%. Cardiovascular: Regular rate, Regular Rhythm, Normal S1, Normal S2, No murmurs Abdomen: Bowel Sounds Present, Soft, Non Tender, Non-Distended Extremities: No edema, Capillary Refill Less than 3 Seconds, - - Smith catheter. Urine output 325 mL. In the Urobag about 500 mL Skin: No rashes, No breakdown Musculoskeletal: No Tenderness to Palpation of Joints or Extremities, Arthritic Changes, Tenderness Neurological: Cranial nerves II-XII grossly intact, - - Patient is sedated so unable to have detail neuro exam Vital Signs Temp Pulse Resp BP Pulse Ox 97.5 F L 84 12 93/71 98 05/10/18 16:00 05/10/18 18:00 05/10/18 18:00 05/10/18 18:00 05/10/18 18:00 Oxygen Delivery Method Mechanical Ventilator Weight: 148 lb 12.992 oz Body Mass Index (BMI) 26.6 Intake and Output for Last 24 Hours 05/08/18 05/09/18 05/10/18 23:59 23:59 23:59 Output Total 325 / 325 Balance -325 / -325 Laboratory Tests Past 24 Hrs 05/10/18 05/10/18 05/10/18 15:15 16:00 16:00 WBC 17.0 H RBC 5.33 Hgb 13.9 Hct 41.7 MCV 78.2 L MCH 26.1 L MCHC 33.3 RDW 15.0 H RDW Differential 43.0 Plt Count 273 MPV 11.5 Immature Gran % (Auto) 0.300 Neut % (Auto) 88.6 H Lymph % (Auto) 5.6 L [place] % (Auto) 5.3 Eos % (Auto) 0.1 Baso % (Auto) 0.1 Absolute Neuts (auto) 15.1 H Absolute Lymphs (auto) 0.95 Total Counted Not Reportable Specimen Type ART Sample Site L Brachial pH 7.30 L Bicarbonate Actual 23.6 POC Total CO2 25 Base Excess -3 L O2 Saturation 90 L O2 % 85 ABG pCO2 48.2 H ABG pO2 64 L [place] Test NA Respiration Rate 12 O2 Delivery Device Vent Vent Mode A-C Tidal Volume 450 POC PEEP 10 Blood Gas Notified Whom ICU Blood Gas Notified Time 1504 Sodium 136 Potassium 4.5 Chloride 103 Carbon Dioxide 23.0 Anion Gap 10 BUN 12 Creatinine 0.94 Estim Creat Clear Calc 49.08 Est GFR (MDRD) Af Amer 77 Est GFR (MDRD) Non-Af 64 BUN/Creatinine Ratio 12.7 Glucose 180 H Calcium 8.3 L Phosphorus 4.5 Magnesium 1.6 Total Creatine Kinase Troponin I B-Natriuretic Peptide Triglycerides 05/10/18 05/10/18 05/10/18 16:00 16:00 16:00 WBC RBC Hgb Hct MCV MCH MCHC RDW RDW Differential Plt Count MPV Immature Gran % (Auto) Neut % (Auto) Lymph % (Auto) [place] % (Auto) Eos % (Auto) Baso % (Auto) Absolute Neuts (auto) Absolute Lymphs (auto) Total Counted Specimen Type Sample Site pH Bicarbonate Actual POC Total CO2 Base Excess O2 Saturation O2 % ABG pCO2 ABG pO2 Duglas Test Respiration Rate O2 Delivery Device Vent Mode Tidal Volume POC PEEP Blood Gas Notified Whom Blood Gas Notified Time Sodium Potassium Chloride Carbon Dioxide Anion Gap BUN Creatinine Estim Creat Clear Calc Est GFR (MDRD) Af Amer Est GFR (MDRD) Non-Af BUN/Creatinine Ratio Glucose Calcium Phosphorus Magnesium Total Creatine Kinase 119 Troponin I 0.235 H B-Natriuretic Peptide 84.0 Triglycerides 284 H 05/10/18 17:00 WBC 16.4 H RBC 5.26 Hgb 13.2 Hct 40.9 MCV 77.8 L MCH 25.1 L MCHC 32.3 RDW 14.7 H RDW Differential 41.2 Plt Count 252 MPV 10.9 Immature Gran % (Auto) Neut % (Auto) Lymph % (Auto) [place] % (Auto) Eos % (Auto) Baso % (Auto) Absolute Neuts (auto) Absolute Lymphs (auto) Total Counted Specimen Type Sample Site pH Bicarbonate Actual POC Total CO2 Base Excess O2 Saturation O2 % ABG pCO2 ABG pO2 Duglas Test Respiration Rate O2 Delivery Device Vent Mode Tidal Volume POC PEEP Blood Gas Notified Whom Blood Gas Notified Time Sodium Potassium Chloride Carbon Dioxide Anion Gap BUN Creatinine Estim Creat Clear Calc Est GFR (MDRD) Af Amer Est GFR (MDRD) Non-Af BUN/Creatinine Ratio Glucose Calcium Phosphorus Magnesium Total Creatine Kinase Troponin I B-Natriuretic Peptide Triglycerides Assessment/Plan All Active Problems (Last Updated 08/11/17 @ 14:55 by Clementine Rosales) Acute respiratory failure with hypoxia (Acute) Pulmonary edema (Acute) The patient is a 62 year old F with no significant medical history except sinusitis, allergy and dyslipidemia had elective right shoulder surgery today. She denies history of smoking, COPD, chronic heart disease including CHF or coronary artery disease. She was on her usual health before surgery. As per the anesthesiologist, after the patient was extubated was noted to be hypoxic and short of breath. LMA stabilization was tried but unsuccessful. Patient was given Narcan, flumazenil and paralytic reversal medicine but unsuccessful and was later on reintubated, put on ventilator and admitted in the ICU. Chest x-ray shows central, bilateral pulmonary edema. Twelve-lead EKG at 8:38 AM showed normal sinus rhythm, normal axis, QRS duration 88 ms at 78 beats per min. Patient was seen by our public relations specialist. Currently on 40% FiO2, PEEP 12, tidal volume 500 and respiratory rate 14. Patient dropped blood pressure on propofol therapy therefore currently on fentanyl drip only. The patient had seen Dr. Arias, ENT for sinusitis and was given antibiotic and cold medication about 2-3 weeks ago. As per the patient's daughter, Ms. Devries and the patient's , she had difficulty in arousal after previous surgeries like hysterectomy and tonsillectomy at age of 55 but not to this degree. 1. Acute hypoxic respiratory failure, secondary to acute pulmonary edema; exact etiology unclear: The patient is being admitted in ICU. Vent management as per public relations specialist. 2. Pulmonary edema mainly central distribution on chest x-ray, : Patient had Lasix 20 mg. Blood pressure is on the lower side, systolic in 90s, map 78. 2D echo ordered. Monitor intake and output. BNP 84. Electrolytes within a cceptable normal limit, K4.5, magnesium 1.6, phosphorus 4.5. 3. Elevated troponin, exact etiology unclear: First troponin 0 0.235. Serial cardiac enzymes ordered. 2D echo as mentioned above. 4. DVT prophylaxis: Heparin 5000 units subcut 3 times daily. 5. Other chronic comorbidities include dyslipidemia, right shoulder arthritis, subacromial impingement status post subacromial decompression/acromioplasty, chronic allergy and sinusitis: These complicates the present care and expect difficult and delay recovery Discussed with public relations specialist. Code Visit Inpatient E&M: [id number] Init Hosp L3
[2018-05-10 20:40] LABS: M R Staph aureus DNA By PCR Negative (Negative); Probe Check PASS; Specimen Processing Control PASS
[2018-05-10] MEDS: Midazolam 2 MG/2 ML Syringe 1 MG IV (21:33)
[2018-05-10] MEDS: Chlorhexidine 15 ML PO (21:48)
[2018-05-10] MEDS: Heparin Injection (Vial) 5,000 UNIT/ML VIAL 5000 UNIT SC (21:49)
[2018-05-10] MEDS: Famotidine 20 MG Tablet GT (21:49)
[2018-05-11] VITALS (29 sets, daily range): BP systolic 85–115; BP diastolic 44–85; PULSE 66–86; RESP 13–24; TEMP 36.5–37.3; O2SAT 88–98
[2018-05-11] MEDS: fentaNYL drip 100 ML 2.5 MCG IV (01:09)
[2018-05-11] MEDS: 0.9% NaCl Peripheral Flush Adult/Peds IV ×7 (01:10→18:11)
[2018-05-11] MEDS: Midazolam 2 MG/2 ML Syringe 0.5 MG IV (02:15)
[2018-05-11] MEDS: Acetaminophen 650 MG/20 ML UDC NG (04:14)
[2018-05-11 04:41] LABS: Absolute Lymphocyte Count 0.51 X10^3/ul (0.83-4.51); Absolute Neutrophil Count 10.6 X10^3/uL (2.0-7.7); Basophil# 0.01 X10^3/uL; Basophil% 0.1 % (0-1); Hematocrit 36.4 % (37-47); Lymphocyte # 0.51 X10^3/ul (4.0); Lymphocyte % 4.3 % (19-41); Mean Corpuscular Hgb 25.1 pg (27.0-32.0); Mean Corpuscular Volume 76.2 fL (81-99); Mean Platelet Vol. 10.9 fl (6.2-12.0); Monocyte# 0.89 X10^3/uL; Monocyte% 7.4 % (0-10); Neutrophil # 10.56 X10^3/uL (2.7-7.7); Neutrophil % 88.1 % (47-70); Platelet Count 211 K/mm3 (150-450); RBC Distribution Width CV 14.8 % (11.6-14.6); RBC Distribution Width SD 41.6 fl (35.1-43.9); Red Blood Count 4.78 M/mm3 (4.2-5.4)
[2018-05-11 04:43] LABS: Differential Indicated SCAN CRITERIA MET; POSITIVE COUNT NO; POSITIVE DIFFERENTIAL YES; POSITIVE MORPHOLOGY NO; Scan Indicated on CBC? Y/N YES- FLAGS NOTED
[2018-05-11 04:52] LABS: Anion Gap 13 (5-15); BUN 16 mg/dL (7-18); BUN/Creat Ratio 15.7 RATIO (10-20); Calcium,Total 8.7 mg/dL (8.5-10.1); Chloride 106 mmol/L (98-107); Creatinine, Serum 1.02 mg/dL (0.55-1.02); EST Glomerular Filtration Rate 58 mL/min (>60); Est Glom Filt Rate - Afr Amer 71 mL/min (>60); Estimated Creatinine Clearance 45.23 ml/min; Glucose 135 mg/dL (74-106); Magnesium 1.6 mg/dL (1.6-2.6); Phosphorus 2.5 mg/dL (2.5-4.9); Potassium 3.9 mmol/L (3.5-5.1); Sodium Level 140 mmol/L (136-145)
[2018-05-11] MEDS: Heparin Injection (Vial) 5,000 UNIT/ML VIAL 5000 UNIT SC ×3 (05:19→21:08)
[2018-05-11] MEDS: Ondansetron 4 MG/2 ML Vial IV (05:33)
[2018-05-11] MEDS: CHLORHEXIDINE GLUC 2% CLOTH 1 EACH TOWELETTE TOPICAL (05:33)
[2018-05-11 06:50] LABS: Allen Test POS; Base Excess 0 mmol/L (-2 to +2); Bicarbonate 24.2 mmol/L (22-26); Blood Gas Specimen Type ART; FI02 35; Mode CPAP PS; O2 Delivery Device Vent; PEEP 5; PO2 73 mmHG (75-100); PS 5; SITE R Radial; SO2 95 % (95-99); Time Given 640; Total Carbon Dioxide 25 mmol/L; pCO2 36.5 mmHg (35-45); pH 7.43 (7.35-7.45)
--- NOTE | 2018-05-11 06:51 | PCM.PN.INT ---
Subjective: Patient did well overnight. Patient did have a couple episodes of anxiety and did receive Versed, but tolerated well. Patient following commands this morning. Patient able to tolerate spontaneous breathing trial without complication. Patient denies any pain at this time. General: Alert, Cooperative, No apparent distress, - - Appears stated age. HEENT: Atraumatic, PERRLA, EOMI, Normocephalic, - - No scleral icterus or injection noted. Oral: Moist Mucosa, No Gingival or Mucosal Lesions/ Ulcerations Neck: Supple, No JVD, No Nodes, Trachea Midline Lungs: Clear to auscultation, Normal air movement, No rhonchi, No wheeze, No rales, - - Symmetric expansion. No dullness to percussion. Cardiovascular: Regular rate, Regular Rhythm, Normal S1, Normal S2, No murmurs, No rub noted, No Gallop Abdomen: Bowel Sounds Present, Soft, Non Tender, Non-Distended Extremities: No clubbing, No cyanosis, No edema, Capillary Refill Less than 3 Seconds Skin: No rashes, No breakdown Musculoskeletal: No Tenderness to Palpation of Joints or Extremities Lymphatic: No Cervical, Supraclavicular, or Inguinal Adenopathy Neurological: Cranial nerves II-XII grossly intact, Neuro grossly intact, Motor Exam 5/5 strength throughout Psych/Mental Status: Normal Affect, Appropriate Vital Signs Temp Pulse Resp BP Pulse Ox 36.8 C 72 24 H 103/65 94 05/11/18 04:00 05/11/18 06:00 05/11/18 06:00 05/11/18 06:00 05/11/18 06:00 Oxygen Delivery Method Mechanical Ventilator Weight: 72.4 kg Body Mass Index (BMI) 26.6 Intake and Output for Last 24 Hours 05/09/18 05/10/18 05/11/18 23:59 23:59 23:59 Intake Total 197 / 197 282 / 282 Output Total 325 / 325 1500 / 1500 Balance -128 / -128 -1218 / -1218 Labs (Last 48 Hours) 05/10/18 05/10/18 05/10/18 15:15 16:00 16:00 WBC 17.0 H RBC 5.33 Hgb 13.9 Hct 41.7 MCV 78.2 L MCH 26.1 L MCHC 33.3 RDW 15.0 H RDW Differential 43.0 Plt Count 273 MPV 11.5 Immature Gran % (Auto) 0.300 Neut % (Auto) 88.6 H Lymph % (Auto) 5.6 L [place] % (Auto) 5.3 Eos % (Auto) 0.1 Baso % (Auto) 0.1 Absolute Neuts (auto) 15.1 H Absolute Lymphs (auto) 0.95 Total Counted Not Reportable Differential Comment Specimen Type ART Sample Site L Brachial pH 7.30 L Bicarbonate Actual 23.6 POC Total CO2 25 Base Excess -3 L O2 Saturation 90 L O2 % 85 ABG pCO2 48.2 H ABG pO2 64 L Duglas Test NA Respiration Rate 12 O2 Delivery Device Vent Vent Mode A-C Tidal Volume 450 POC PEEP 10 POC Pressure Suppt Blood Gas Notified Whom ICU MD Blood Gas Notified Time 1504 Sodium 136 Potassium 4.5 Chloride 103 Carbon Dioxide 23.0 Anion Gap 10 BUN 12 Creatinine 0.94 Estim Creat Clear Calc 49.08 Est GFR (MDRD) Af Amer 77 Est GFR (MDRD) Non-Af 64 BUN/Creatinine Ratio 12.7 Glucose 180 H Calcium 8.3 L Phosphorus 4.5 Magnesium 1.6 Total Creatine Kinase Troponin I B-Natriuretic Peptide Triglycerides MRSA (PCR) 05/10/18 05/10/18 05/10/18 16:00 16:00 16:00 WBC RBC Hgb Hct MCV MCH MCHC RDW RDW Differential Plt Count MPV Immature Gran % (Auto) Neut % (Auto) Lymph % (Auto) [place] % (Auto) Eos % (Auto) Baso % (Auto) Absolute Neuts (auto) Absolute Lymphs (auto) Total Counted Differential Comment Specimen Type Sample Site pH Bicarbonate Actual POC Total CO2 Base Excess O2 Saturation O2 % ABG pCO2 ABG pO2 Duglas Test Respiration Rate O2 Delivery Device Vent Mode Tidal Volume POC PEEP POC Pressure Suppt Blood Gas Notified Whom Blood Gas Notified Time Sodium Potassium Chloride Carbon Dioxide Anion Gap BUN Creatinine Estim Creat Clear Calc Est GFR (MDRD) Af Amer Est GFR (MDRD) Non-Af BUN/Creatinine Ratio Glucose Calcium Phosphorus Magnesium Total Creatine Kinase 119 Troponin I 0.235 H B-Natriuretic Peptide 84.0 Triglycerides 284 H MRSA (PCR) 05/10/18 05/10/18 05/10/18 17:00 18:55 18:55 WBC 16.4 H RBC 5.26 Hgb 13.2 Hct 40.9 MCV 77.8 L MCH 25.1 L MCHC 32.3 RDW 14.7 H RDW Differential 41.2 Plt Count 252 MPV 10.9 Immature Gran % (Auto) Neut % (Auto) Lymph % (Auto) [place] % (Auto) Eos % (Auto) Baso % (Auto) Absolute Neuts (auto) Absolute Lymphs (auto) Total Counted Differential Comment Specimen Type Sample Site pH Bicarbonate Actual POC Total CO2 Base Excess O2 Saturation O2 % ABG pCO2 ABG pO2 Duglas Test Respiration Rate O2 Delivery Device Vent Mode Tidal Volume POC PEEP POC Pressure Suppt Blood Gas Notified Whom Blood Gas Notified Time Sodium Potassium Chloride Carbon Dioxide Anion Gap BUN Creatinine Estim Creat Clear Calc Est GFR (MDRD) Af Amer Est GFR (MDRD) Non-Af BUN/Creatinine Ratio Glucose Calcium Phosphorus Magnesium Total Creatine Kinase Troponin I 0.425 H B-Natriuretic Peptide Triglycerides MRSA (PCR) Negative 05/10/18 05/11/18 05/11/18 22:05 04:20 04:20 WBC 12.0 H RBC 4.78 Hgb 12.0 Hct 36.4 L MCV 76.2 L MCH 25.1 L MCHC 33.0 RDW 14.8 H RDW Differential 41.6 Plt Count 211 MPV 10.9 Immature Gran % (Auto) 0.100 Neut % (Auto) 88.1 H Lymph % (Auto) 4.3 L [place] % (Auto) 7.4 Eos % (Auto) 0.0 Baso % (Auto) 0.1 Absolute Neuts (auto) 10.6 H Absolute Lymphs (auto) 0.51 L Total Counted Not Reportable Differential Comment Specimen Type Sample Site pH Bicarbonate Actual POC Total CO2 Base Excess O2 Saturation O2 % ABG pCO2 ABG pO2 Duglas Test Respiration Rate O2 Delivery Device Vent Mode Tidal Volume POC PEEP POC Pressure Suppt Blood Gas Notified Whom Blood Gas Notified Time Sodium 140 Potassium 3.9 Chloride 106 Carbon Dioxide 21.0 Anion Gap 13 BUN 16 Creatinine 1.02 Estim Creat Clear Calc 45.23 Est GFR (MDRD) Af Amer 71 Est GFR (MDRD) Non-Af 58 L BUN/Creatinine Ratio 15.7 Glucose 135 H Calcium 8.7 Phosphorus 2.5 Magnesium 1.6 Total Creatine Kinase Troponin I 0.568 H B-Natriuretic Peptide Triglycerides MRSA (PCR) 05/11/18 06:47 WBC RBC Hgb Hct MCV MCH MCHC RDW RDW Differential Plt Count MPV Immature Gran % (Auto) Neut % (Auto) Lymph % (Auto) [place] % (Auto) Eos % (Auto) Baso % (Auto) Absolute Neuts (auto) Absolute Lymphs (auto) Total Counted Differential Comment Specimen Type ART Sample Site R Radial pH 7.43 Bicarbonate Actual 24.2 POC Total CO2 25 Base Excess 0 O2 Saturation 95 O2 % 35 ABG pCO2 36.5 ABG pO2 73 L Duglas Test POS Respiration Rate O2 Delivery Device Vent Vent Mode CPAP PS Tidal Volume POC PEEP 5 POC Pressure Suppt 5 Blood Gas Notified Whom ICU MD Blood Gas Notified Time 640 Sodium Potassium Chloride Carbon Dioxide Anion Gap BUN Creatinine Estim Creat Clear Calc Est GFR (MDRD) Af Amer Est GFR (MDRD) Non-Af BUN/Creatinine Ratio Glucose Calcium Phosphorus Magnesium Total Creatine Kinase Troponin I B-Natriuretic Peptide Triglycerides MRSA (PCR) Clinical Impression(s) from Imaging Studies Chest X-Ray 05/10/18 13:34 IMPRESSION: Satisfactory position of the support lines and tubes. Worsening bilateral perihilar opacities which are likely due to pulmonary edema. Electronically Signed: Jose Encarnacion, at 16:18 EST Tel , Service support , Chest X-Ray 05/10/18 15:16 IMPRESSION: The tip of the endotracheal tube is at the level of the jonathan. It should be pulled back approximately 2.5 cm. Pulmonary edema. Electronically Signed: Stef Youngblood MD at 15:54 EST Tel [phone], Service support , Medical Necessity - Tobacco Use Smoking Status: Never smoker Assessment/Plan All Active Problems (Last Updated 08/11/17 @ 14:55 by Clementine Rosales) Acute respiratory failure with hypoxia (Acute) Pulmonary edema (Acute) RECOMMENDATIONS: 1. Wean oxygen as tolerated 2. Increase activity as tolerated 3. No further diuretic therapy 4. Await echocardiogram IMPRESSIONS: 1. Acute hypoxic respiratory failure Patient did very well overnight. Patient did have high PEEP requirements for short period of time, but was able to pass spontaneous breathing trial this morning. No further diuretic therapy is likely indicated. Patient does have an echocardiogram ordered for evaluation. Patient did have elevated troponin, but was also noted to desaturate into the 70s during the acute condition. Patient may require a stress test as an outpatient. 2. Hyperlipidemia/right shoulder surgery postop day #1 Complicates care, management, recovery and prognosis. Orthopedic surgery is currently following. TIME: 32 minutes critical care time spent addressing patient's acute hypoxic respiratory failure, review of all data and collaboration with care team (5:45 AM to 6:45 AM) Code Visit [id number]: [id number] Critical care first hour
--- NOTE | 2018-05-11 06:53 | NURSING ---
Pt extubated to 2L NC by RT Jane and RT Balbina. Pt tolerating well with strong cough.
--- NOTE | 2018-05-11 08:36 | PCM.PN.HOSP ---
Patient Problems: Active and Suspected Problems (Last Updated 08/11/17 @ 14:55 by Clementine Rosales) Acute respiratory failure with hypoxia (Acute) Pulmonary edema (Acute) Subjective: She feels much better, she is extubated and on maintaining her sats on NC 5L. No SOB or CP Vitals/I&O's: Vital Signs Temp Pulse Resp BP Pulse Ox 98.3 F 71 17 100/58 L 95 05/11/18 04:00 05/11/18 07:42 05/11/18 07:00 05/11/18 07:00 05/11/18 07:00 Oxygen Flow Rate (L/min) 4 Oxygen Delivery Method Nasal Cannula Weight: 159 lb 9.835 oz Body Mass Index (BMI) 26.6 Intake and Output for Last 24 Hours 05/09/18 05/10/18 05/11/18 23:59 23:59 23:59 Intake Total 197 / 197 282 / 282 Output Total 325 / 325 1500 / 1500 Balance -128 / -128 -1218 / -1218 General: Alert, Oriented x3, Cooperative, No apparent distress HEENT: Atraumatic, EOMI, Normocephalic Oral: Moist Mucosa Neck: Supple, No JVD Lungs: Clear to auscultation, Normal air movement, No rhonchi, No wheeze, No rales Cardiovascular: Regular rate, Regular Rhythm, Normal S1, Normal S2, No murmurs Abdomen: Soft, Non Tender, Non-Distended, No Hepato-splenomegaly Extremities: No edema, Capillary Refill Less than 3 Seconds Skin: No rashes, No breakdown, Incision - dressing CDI Neurological: Neuro grossly intact, Sensory exam intact to light touch and pain Psych/Mental Status: Normal Affect, Appropriate Laboratory Results 05/10/18 15:15: Specimen Type ART, Sample Site L Brachial, pH 7.30 L, Bicarbonate Actual 23.6, POC Total CO2 25, Base Excess -3 L, O2 Saturation 90 L, O2 % 85, ABG pCO2 48.2 H, ABG pO2 64 L, [place] Test NA, Respiration Rate 12, O2 Delivery Device Vent, Vent Mode A-C, Tidal Volume 450, POC PEEP 10, Blood Gas Notified Whom ICU , Blood Gas Notified Time 1504 05/10/18 16:00: WBC 17.0 H, RBC 5.33, Hgb 13.9, Hct 41.7, MCV 78.2 L, MCH 26.1 L, MCHC 33.3, RDW 15.0 H, RDW Differential 43.0, Plt Count 273, MPV 11.5, Immature Gran % (Auto) 0.300, Neut % (Auto) 88.6 H, Lymph % (Auto) 5.6 L, [place] % (Auto) 5.3, Eos % (Auto) 0.1, Baso % (Auto) 0.1, Absolute Neuts (auto) 15.1 H, Absolute Lymphs (auto) 0.95, Total Counted Not Reportable 05/10/18 16:00: Sodium 136, Potassium 4.5, Chloride 103, Carbon Dioxide 23.0, Anion Gap 10, BUN 12, Creatinine 0.94, Estim Creat Clear Calc 49.08, Est GFR (MDRD) Af Amer 77, Est GFR (MDRD) Non-Af 64, BUN/Creatinine Ratio 12.7, Glucose 180 H, Calcium 8.3 L, Phosphorus 4.5, Magnesium 1.6 05/10/18 16:00: B-Natriuretic Peptide 84.0 05/10/18 16:00: Total Creatine Kinase 119, Triglycerides 284 H 05/10/18 16:00: Troponin I 0.235 H 05/10/18 17:00: WBC 16.4 H, RBC 5.26, Hgb 13.2, Hct 40.9, MCV 77.8 L, MCH 25.1 L, MCHC 32.3, RDW 14.7 H, RDW Differential 41.2, Plt Count 252, MPV 10.9 05/10/18 18:55: Troponin I 0.425 H 05/10/18 18:55: MRSA (PCR) Negative 05/10/18 22:05: Troponin I 0.568 H 05/11/18 04:20: WBC 12.0 H, RBC 4.78, Hgb 12.0, Hct 36.4 L, MCV 76.2 L, MCH 25.1 L, MCHC 33.0, RDW 14.8 H, RDW Differential 41.6, Plt Count 211, MPV 10.9, Immature Gran % (Auto) 0.100, Neut % (Auto) 88.1 H, Lymph % (Auto) 4.3 L, [place] % (Auto) 7.4, Eos % (Auto) 0.0, Baso % (Auto) 0.1, Absolute Neuts (auto) 10.6 H, Absolute Lymphs (auto) 0.51 L, Total Counted Not Reportable, Differential Comment 05/11/18 04:20: Sodium 140, Potassium 3.9, Chloride 106, Carbon Dioxide 21.0, Anion Gap 13, BUN 16, Creatinine 1.02, Estim Creat Clear Calc 45.23, Est GFR (MDRD) Af Amer 71, Est GFR (MDRD) Non-Af 58 L, BUN/Creatinine Ratio 15.7, Glucose 135 H, Calcium 8.7, Phosphorus 2.5, Magnesium 1.6 05/11/18 06:47: Specimen Type ART, Sample Site R Radial, pH 7.43, Bicarbonate Actual 24.2, POC Total CO2 25, Base Excess 0, O2 Saturation 95, O2 % 35, ABG pCO2 36.5, ABG pO2 73 L, Duglas Test POS, O2 Delivery Device Vent, Vent Mode CPAP PS, POC PEEP 5, POC Pressure Suppt 5, Blood Gas Notified Whom ICU MD, Blood Gas Notified Time 640 Current Medications Acetaminophen (Tylenol Liquid) 650 mg NG Q4H PRN PRN PRN Reason: Fever/pain Last Admin: 05/11/18 04:14 Dose: 650 mg Hydrocodone Bitart/Acetaminophen ([place] 5mg-325mg) 1 - 2 tablet PO Q6H PRN PRN PRN Reason: Mild-Moderate (pain scale 1-5) Albuterol Sulfate (Ventolin Aerosols) 2.5 mg INHALATION Q2H PRN PRN PRN Reason: WHEEZING Bisacodyl (Dulcolax) 10 mg RECTAL DAILY PRN PRN PRN Reason: Constipation Chlorhexidine Gluconate () 1 each TOPICAL DAILY [facility] Last Admin: 05/11/18 05:33 Dose: 1 each Docusate Sodium (Colace) 200 mg PO BID PRN PRN PRN Reason: Constipation Famotidine (Pepcid) 20 mg GT BID [facility] Last Admin: 05/10/18 21:49 Dose: 20 mg Furosemide (Lasix) 20 mg IV X1 ONE Stop: 05/11/18 08:32 Heparin Sodium (Porcine) (Heparin Na) 5,000 unit SC Q8 [facility] Last Admin: 05/11/18 05:19 Dose: 5,000 unit Sodium Chloride () 250 mls @ 15 mls/hr IV .[id number] PRN PRN Reason: SALINE FLUSH Non-Formulary Medication (Rosuvastatin Calcium [Rosuvastatin Calcium]) 20 mg GT DAILY [facility] Ondansetron HCl (Zofran) 4 mg IV Q8H PRN PRN PRN Reason: Nausea Last Admin: 05/11/18 05:33 Dose: 4 mg Sodium Chloride () 5 - 30 ml IV UD PRN PRN Reason: SALINE FLUSH Last Admin: 05/11/18 05:33 Dose: 10 ml Medical Necessity - Tobacco Use Smoking Status: Never smoker Assessment/Plan All Active Problems (Last Updated 08/11/17 @ 14:55 by Clementine Rosales) Acute respiratory failure with hypoxia (Acute) Pulmonary edema (Acute) 1. Acute hypoxic respiratory failure secondary to acute pulmonary edema - She had same day R shoulder surgery yesterday and had to be re-intubated - Currently extubated and doing well - Troponin elevation is likely secondary to the pulmonary edema, will obtain echo to r/o other causes - If echo is normal and she is maintained on room air, can discharge later this afternoon 2. Right shoulder arthritis with impingement POD1 from subacromial decompression - Pain management per ortho - Primary plan per ortho 3. HLD - she has been stable with no side-effects - c/w crestor 4. Depression - stable - c/w zoloft DVT: Heparin Code Visit Inpatient E&M: 54190 Subs Hosp L2
--- NOTE | 2018-05-11 08:48 | PN_ITS ---
Patient Problems: Active and Suspected Problems (Last Updated 08/11/17 @ 14:55 by Clementine Rosales) Acute respiratory failure with hypoxia (Acute) Pulmonary edema (Acute) Subjective: She feels much better, she is extubated and on maintaining her sats on NC 5L. No SOB or CP Vitals/I&O's: Vital Signs Temp Pulse Resp BP Pulse Ox 98.3 F 71 17 100/58 L 95 05/11/18 04:00 05/11/18 07:42 05/11/18 07:00 05/11/18 07:00 05/11/18 07:00 Oxygen Flow Rate (L/min) 4 Oxygen Delivery Method Nasal Cannula Weight: 159 lb 9.835 oz Body Mass Index (BMI) 26.6 Intake and Output for Last 24 Hours 05/09/18 05/10/18 05/11/18 23:59 23:59 23:59 Intake Total 197 / 197 282 / 282 Output Total 325 / 325 1500 / 1500 Balance -128 / -128 -1218 / -1218 General: Alert, Oriented x3, Cooperative, No apparent distress HEENT: Atraumatic, EOMI, Normocephalic Oral: Moist Mucosa Neck: Supple, No JVD Lungs: Clear to auscultation, Normal air movement, No rhonchi, No wheeze, No rales Cardiovascular: Regular rate, Regular Rhythm, Normal S1, Normal S2, No murmurs Abdomen: Soft, Non Tender, Non-Distended, No Hepato-splenomegaly Extremities: No edema, Capillary Refill Less than 3 Seconds Skin: No rashes, No breakdown, Incision - dressing CDI Neurological: Neuro grossly intact, Sensory exam intact to light touch and pain Psych/Mental Status: Normal Affect, Appropriate Laboratory Results 05/10/18 15:15: Specimen Type ART, Sample Site L Brachial, pH 7.30 L, Bicarbonate Actual 23.6, POC Total CO2 25, Base Excess -3 L, O2 Saturation 90 L, O2 % 85, ABG pCO2 48.2 H, ABG pO2 64 L, Duglas Test NA, Respiration Rate 12, O2 Delivery Device Vent, Vent Mode A-C, Tidal Volume 450, POC PEEP 10, Blood Gas Notified Whom ICU , Blood Gas Notified Time 1504 05/10/18 16:00: WBC 17.0 H, RBC 5.33, Hgb 13.9, Hct 41.7, MCV 78.2 L, MCH 26.1 L , MCHC 33.3, RDW 15.0 H, RDW Differential 43.0, Plt Count 273, MPV 11.5, Immature Gran % (Auto) 0.300, Neut % (Auto) 88.6 H, Lymph % (Auto) 5.6 L, [place] % (Auto) 5.3, Eos % (Auto) 0.1, Baso % (Auto) 0.1, Absolute Neuts (auto) 15.1 H, Absolute Lymphs (auto) 0.95, Total Counted Not Reportable 05/10/18 16:00: Sodium 136, Potassium 4.5, Chloride 103, Carbon Dioxide 23.0, Anion Gap 10, BUN 12, Creatinine 0.94, Estim Creat Clear Calc 49.08, Est GFR (MDRD) Af Amer 77, Est GFR (MDRD) Non-Af 64, BUN/Creatinine Ratio 12.7, Glucose 180 H, Calcium 8.3 L, Phosphorus 4.5, Magnesium 1.6 05/10/18 16:00: B-Natriuretic Peptide 84.0 05/10/18 16:00: Total Creatine Kinase 119, Triglycerides 284 H 05/10/18 16:00: Troponin I 0.235 H 05/10/18 17:00: WBC 16.4 H, RBC 5.26, Hgb 13.2, Hct 40.9, MCV 77.8 L, MCH 25.1 L , MCHC 32.3, RDW 14.7 H, RDW Differential 41.2, Plt Count 252, MPV 10.9 05/10/18 18:55: Troponin I 0.425 H 05/10/18 18:55: MRSA (PCR) Negative 05/10/18 22:05: Troponin I 0.568 H 05/11/18 04:20: WBC 12.0 H, RBC 4.78, Hgb 12.0, Hct 36.4 L, MCV 76.2 L, MCH 25.1 L, MCHC 33.0, RDW 14.8 H, RDW Differential 41.6, Plt Count 211, MPV 10.9, Immature Gran % (Auto) 0.100, Neut % (Auto) 88.1 H, Lymph % (Auto) 4.3 L, [place] % (Auto) 7.4, Eos % (Auto) 0.0, Baso % (Auto) 0.1, Absolute Neuts (auto) 10.6 H, Absolute Lymphs (auto) 0.51 L, Total Counted Not Reportable, Differential Comme nt 05/11/18 04:20: Sodium 140, Potassium 3.9, Chloride 106, Carbon Dioxide 21.0, Anion Gap 13, BUN 16, Creatinine 1.02, Estim Creat Clear Calc 45.23, Est GFR (MDRD) Af Amer 71, Est GFR (MDRD) Non-Af 58 L, BUN/Creatinine Ratio 15.7, Glucose 135 H, Calcium 8.7, Phosphorus 2.5, Magnesium 1.6 05/11/18 06:47: Specimen Type ART, Sample Site R Radial, pH 7.43, Bicarbonate Actual 24.2, POC Total CO2 25, Base Excess 0, O2 Saturation 95, O2 % 35, ABG pCO2 36.5, ABG pO2 73 L, Duglas Test POS, O2 Delivery Device Vent, Vent Mode CPAP PS, POC PEEP 5, POC Pressure Suppt 5, Blood Gas Notified Whom ICU MD, Blood Gas Notified Time 640 Current Medications Acetaminophen (Tylenol Liquid) 650 mg NG Q4H PRN PRN PRN Reason: Fever/pain Last Admin: 05/11/18 04:14 Dose: 650 mg Hydrocodone Bitart/Acetaminophen ([place] 5mg-325mg) 1 - 2 tablet PO Q6H PRN PRN PRN Reason: Mild-Moderate (pain scale 1-5) Albuterol Sulfate (Ventolin Aerosols) 2.5 mg INHALATION Q2H PRN PRN PRN Reason: WHEEZING Bisacodyl (Dulcolax) 10 mg RECTAL DAILY PRN PRN PRN Reason: Constipation Chlorhexidine Gluconate () 1 each TOPICAL DAILY [facility] Last Admin: 05/11/18 05:33 Dose: 1 each Docusate Sodium (Colace) 200 mg PO BID PRN PRN PRN Reason: Constipation Famotidine (Pepcid) 20 mg GT BID [facility] Last Admin: 05/10/18 21:49 Dose: 20 mg Furosemide (Lasix) 20 mg IV X1 ONE Stop: 05/11/18 08:32 Heparin Sodium (Porcine) (Heparin Na) 5,000 unit SC Q8 [facility] Last Admin: 05/11/18 05:19 Dose: 5,000 unit Sodium Chloride () 250 mls @ 15 mls/hr IV .[id number] PRN PRN Reason: SALINE FLUSH Non-Formulary Medication (Rosuvastatin Calcium [Rosuvastatin Calcium]) 20 mg GT DAILY [facility] Ondansetron HCl (Zofran) 4 mg IV Q8H PRN PRN PRN Reason: Nausea Last Admin: 05/11/18 05:33 Dose: 4 mg Sodium Chloride () 5 - 30 ml IV UD PRN PRN Reason: SALINE FLUSH Last Admin: 05/11/18 05:33 Dose: 10 ml Medical Necessity - Tobacco Use Smoking Status: Never smoker Assessment/Plan All Active Problems (Last Updated 08/11/17 @ 14:55 by Clementine Rosales) Acute respiratory failure with hypoxia (Acute) Pulmonary edema (Acute) 1. Acute hypoxic respiratory failure secondary to acute pulmonary edema - She had same day R shoulder surgery yesterday and had to be re-intubated - Currently extubated and doing well - Troponin elevation is likely secondary to the pulmonary edema, will obtain echo to r/o other causes - If echo is normal and she is maintained on room air, can discharge later this afternoon 2. Right shoulder arthritis with impingement POD1 from subacromial decompression - Pain management per ortho - Primary plan per ortho 3. HLD - she has been stable with no side-effects - c/w crestor 4. Depression - stable - c/w zoloft DVT: Heparin Code Visit Inpatient E&M: 12028 Subs Hosp L2
[2018-05-11] MEDS: Furosemide 20 MG/2 ML VIAL IV (09:59)
--- NOTE | 2018-05-11 10:19 | CASEMGMT ---
Socijoce Work: Met with patient and patient's in room. Patient giving this [employer] permission to assess with patient in the room. Patient lives with in a ranch style home with 2 steps to enter. Patient was independent with all ADL's and IADL's including driving before shoulder surgery. Patient has 2 local children who will be able to assist as needed. Patient states that she has a follow up appointment with the ortho surgery and believes she will be released at that time for outpatient PT. Patient does not have advance directives and is not interested in receiving information at this time. Patient owns the [employer] care machine that is currently in her room. Patient has a very supportive family and denies any D/C planning needs at this time. [place]
[2018-05-11] MEDS: fentaNYL 100 MCG/2 ML Ampul 50 MCG IV (11:14)
[2018-05-11] MEDS: Morphine 2 MG/ML Syringe IV (18:11)
[2018-05-11] MEDS: BENZOCAINE/MENTHOL 1 LOZENGE 2 LOZENGE MUCOUS MEM (20:04)
--- NOTE | 2018-05-11 20:17 | NURSING ---
took pt v/s pt pulse ox was on 94% RA. put pt on continuous pulse ox per nursing judgment and pt was 85% at desk. pt asymptomatic. portable pulse ox also showed 86%. placed on 2L nc pt at 95%. will let respiratory aware.
[2018-05-12] VITALS (7 sets, daily range): BP systolic 124–141; BP diastolic 62–73; PULSE 65–79; RESP 16–18; TEMP 36.4–36.7; O2SAT 93–98
[2018-05-12] MEDS: HYDROmorphone 0.5 MG/0.5 ML SYRINGE IV (02:53)
[2018-05-12] MEDS: 0.9% NaCl Peripheral Flush Adult/Peds IV ×2 (02:55→16:10)
[2018-05-12] MEDS: Heparin Injection (Vial) 5,000 UNIT/ML VIAL 5000 UNIT SC ×3 (05:54→20:32)
[2018-05-12 07:26] LABS: BUN 22 mg/dL (7-18); Glucose 106 mg/dL (74-106)
[2018-05-12 07:27] LABS: Anion Gap 8 (5-15); BUN/Creat Ratio 24.3 RATIO (10-20); Calcium,Total 8.9 mg/dL (8.5-10.1); Chloride 105 mmol/L (98-107); EST Glomerular Filtration Rate 67 mL/min (>60); Est Glom Filt Rate - Afr Amer 81 mL/min (>60); Estimated Creatinine Clearance 51.26 ml/min; Potassium 4.4 mmol/L (3.5-5.1); Sodium Level 139 mmol/L (136-145)
[2018-05-12 07:51] LABS: Absolute Lymphocyte Count 0.55 X10^3/ul (0.83-4.51); Absolute Neutrophil Count 7.6 X10^3/uL (2.0-7.7); Differential Indicated SCAN CRITERIA MET; Hematocrit 35.2 % (37-47); Lymphocyte # 0.55 X10^3/ul (4.0); Lymphocyte % 6.3 % (19-41); Mean Corp Hgb Conc 31.3 g/gl (32-36); Mean Corpuscular Hgb 25.5 pg (27.0-32.0); Mean Corpuscular Volume 81.7 fL (81-99); Mean Platelet Vol. 11.4 fl (6.2-12.0); Monocyte# 0.58 X10^3/uL; Monocyte% 6.7 % (0-10); Neutrophil # 7.56 X10^3/uL (2.7-7.7); Neutrophil % 86.9 % (47-70); POSITIVE COUNT NO; POSITIVE DIFFERENTIAL YES; POSITIVE MORPHOLOGY NO; Platelet Count 186 K/mm3 (150-450); RBC Distribution Width CV 15.3 % (11.6-14.6); RBC Distribution Width SD 44.8 fl (35.1-43.9); Red Blood Count 4.31 M/mm3 (4.2-5.4); White Blood Count 8.7 K/mm3 (4.4-11.0)
--- NOTE | 2018-05-12 07:55 | PCM.PN.HOSP ---
Patient Problems: Active and Suspected Problems (Last Updated 08/11/17 @ 14:55 by Clementine Rosales) Acute respiratory failure with hypoxia (Acute) Pulmonary edema (Acute) Subjective: Denies CP or SOB. No complaints overnight, was able to ambulate yesterday. Vitals/I&O's: Vital Signs Temp Pulse Resp BP Pulse Ox 97.9 F 65 16 124/70 H 97 05/12/18 02:00 05/12/18 02:00 05/12/18 02:00 05/12/18 02:00 05/12/18 03:00 Oxygen Flow Rate (L/min) 2 Oxygen Delivery Method Nasal Cannula Weight: 155 lb 6 oz Body Mass Index (BMI) 26.6 Intake and Output for Last 24 Hours 05/10/18 05/11/18 05/12/18 23:59 23:59 23:59 Intake Total 197 / 197 282 / 282 0 / 0 Output Total 325 / 325 2225 / 2225 400 / 400 Balance -128 / -128 -1943 / -1943 -400 / -400 General: Alert, Oriented x3, Cooperative, No apparent distress HEENT: Atraumatic, EOMI, Normocephalic Oral: Moist Mucosa Neck: Supple, No JVD Lungs: Clear to auscultation, Normal air movement, No rhonchi, No wheeze, No rales Cardiovascular: Regular rate, Regular Rhythm, Normal S1, Normal S2, No murmurs Abdomen: Soft, Non Tender, Non-Distended, No Hepato-splenomegaly Extremities: No edema, Capillary Refill Less than 3 Seconds Skin: No rashes, No breakdown, Incision - dressing CDI Neurological: Neuro grossly intact, Sensory exam intact to light touch and pain Psych/Mental Status: Normal Affect, Appropriate Laboratory Results 05/12/18 06:48: WBC 8.7, RBC 4.31, Hgb 11.0 L, Hct 35.2 L, MCV 81.7, MCH 25.5 L, MCHC 31.3 L, RDW 15.3 H, RDW Differential 44.8 H, Plt Count 186, MPV 11.4, Immature Gran % (Auto) 0.100, Neut % (Auto) 86.9 H, Lymph % (Auto) 6.3 L, [place] % (Auto) 6.7, Eos % (Auto) 0.0, Baso % (Auto) 0.0, Absolute Neuts (auto) 7.6, Absolute Lymphs (auto) 0.55 L, Total Counted Not Reportable 05/12/18 06:48: Sodium 139, Potassium 4.4, Chloride 105, Carbon Dioxide 26.0, Anion Gap 8, BUN 22 H, Creatinine 0.90, Estim Creat Clear Calc 51.26, Est GFR (MDRD) Af Amer 81, Est GFR (MDRD) Non-Af 67, BUN/Creatinine Ratio 24.3 H, Glucose 106, Calcium 8.9 Current Medications Hydrocodone Bitart/Acetaminophen ([place] 5mg-325mg) 1 - 2 tablet PO Q6H PRN PRN PRN Reason: Mild-Moderate (pain scale 1-5) Albuterol Sulfate (Ventolin Aerosols) 2.5 mg INHALATION Q2H PRN PRN PRN Reason: WHEEZING Atorvastatin Calcium (Lipitor) 40 mg PO QHS [facility] Last Admin: 05/11/18 21:11 Dose: Not Given Bisacodyl (Dulcolax) 10 mg RECTAL DAILY PRN PRN PRN Reason: Constipation Docusate Sodium (Colace) 200 mg PO BID PRN PRN PRN Reason: Constipation Heparin Sodium (Porcine) (Heparin Na) 5,000 unit SC Q8 [facility] Last Admin: 05/12/18 05:54 Dose: 5,000 unit Hydromorphone HCl (Dilaudid Inj) 0.5 mg IV Q4H PRN PRN PRN Reason: SEVERE PAIN (6-10/10) Last Admin: 05/12/18 02:53 Dose: 0.5 mg Sodium Chloride () 250 mls @ 15 mls/hr IV .[id number] PRN PRN Reason: SALINE FLUSH Influenza Virus Vaccine Quadrival (Fluarix/Fluzone) 0.5 ml IM .ONCE ONE Stop: 05/12/18 10:01 Morphine Sulfate () 2 mg IV Q4H PRN PRN PRN Reason: SEVERE PAIN (6-10/10) Last Admin: 05/11/18 18:11 Dose: 2 mg Ondansetron HCl (Zofran) 4 mg IV Q8H PRN PRN PRN Reason: Nausea Last Admin: 05/11/18 05:33 Dose: 4 mg Sodium Chloride () 5 - 30 ml IV UD PRN PRN Reason: SALINE FLUSH Last Admin: 05/12/18 02:55 Dose: 10 ml Throat Lozenges (Cepacol Sore Throat Lozenge) 2 lozenge MUCOUS MEM Q2H PRN PRN PRN Reason: SORE THROAT Last Admin: 05/11/18 20:04 Dose: 2 lozenge Medical Necessity - Tobacco Use Smoking Status: Never smoker Assessment/Plan All Active Problems (Last Updated 08/11/17 @ 14:55 by Clementine Rosales) Acute respiratory failure with hypoxia (Acute) Pulmonary edema (Acute) 1. Acute hypoxic respiratory failure secondary to acute pulmonary edema/Aspiration - She had same day R shoulder surgery yesterday and had to be re-intubated - Currently extubated and doing well - Echo was normal - Aspiration during speech eval and each episode led to a desaturation - Currently on 2L NC - Repeat speech eval today 2. Right shoulder arthritis with impingement POD1 from subacromial decompression - Pain management per ortho - Primary plan per ortho 3. HLD - she has been stable with no side-effects - c/w crestor 4. Depression - stable - c/w zoloft DVT: Heparin Code Visit Inpatient E&M: 78421 Subs Hosp L2
--- NOTE | 2018-05-12 07:58 | PN_ITS ---
Patient Problems: Active and Suspected Problems (Last Updated 08/11/17 @ 14:55 by Clementine Rosales) Acute respiratory failure with hypoxia (Acute) Pulmonary edema (Acute) Subjective: Denies CP or SOB. No complaints overnight, was able to ambulate yesterday. Vitals/I&O's: Vital Signs Temp Pulse Resp BP Pulse Ox 97.9 F 65 16 124/70 H 97 05/12/18 02:00 05/12/18 02:00 05/12/18 02:00 05/12/18 02:00 05/12/18 03:00 Oxygen Flow Rate (L/min) 2 Oxygen Delivery Method Nasal Cannula Weight: 155 lb 6 oz Body Mass Index (BMI) 26.6 Intake and Output for Last 24 Hours 05/10/18 05/11/18 05/12/18 23:59 23:59 23:59 Intake Total 197 / 197 282 / 282 0 / 0 Output Total 325 / 325 2225 / 2225 400 / 400 Balance -128 / -128 -1943 / -1943 -400 / -400 General: Alert, Oriented x3, Cooperative, No apparent distress HEENT: Atraumatic, EOMI, Normocephalic Oral: Moist Mucosa Neck: Supple, No JVD Lungs: Clear to auscultation, Normal air movement, No rhonchi, No wheeze, No rales Cardiovascular: Regular rate, Regular Rhythm, Normal S1, Normal S2, No murmurs Abdomen: Soft, Non Tender, Non-Distended, No Hepato-splenomegaly Extremities: No edema, Capillary Refill Less than 3 Seconds Skin: No rashes, No breakdown, Incision - dressing CDI Neurological: Neuro grossly intact, Sensory exam intact to light touch and pain Psych/Mental Status: Normal Affect, Appropriate Laboratory Results 05/12/18 06:48: WBC 8.7, RBC 4.31, Hgb 11.0 L, Hct 35.2 L, MCV 81.7, MCH 25.5 L, MCHC 31.3 L, RDW 15.3 H, RDW Differential 44.8 H, Plt Count 186, MPV 11.4, Immature Gran % (Auto) 0.100, Neut % (Auto) 86.9 H, Lymph % (Auto) 6.3 L, [place] % (Auto) 6.7, Eos % (Auto) 0.0, Baso % (Auto) 0.0, Absolute Neuts (auto) 7.6, Absolute Lymphs (auto) 0.55 L, Total Counted Not Reportable 05/12/18 06:48: Sodium 139, Potassium 4.4, Chloride 105, Carbon Dioxide 26.0, Anion Gap 8, BUN 22 H, Creatinine 0.90, Estim Creat Clear Calc 51.26, Est GFR (MDRD) Af Amer 81, Est GFR (MDRD) Non-Af 67, BUN/Creatinine Ratio 24.3 H, Glucose 106, Calcium 8.9 Current Medications Hydrocodone Bitart/Acetaminophen ([place] 5mg-325mg) 1 - 2 tablet PO Q6H PRN PRN PRN Reason: Mild-Moderate (pain scale 1-5) Albuterol Sulfate (Ventolin Aerosols) 2.5 mg INHALATION Q2H PRN PRN PRN Reason: WHEEZING Atorvastatin Calcium (Lipitor) 40 mg PO QHS [facility] Last Admin: 05/11/18 21:11 Dose: Not Given Bisacodyl (Dulcolax) 10 mg RECTAL DAILY PRN PRN PRN Reason: Constipation Docusate Sodium (Colace) 200 mg PO BID PRN PRN PRN Reason: Constipation Heparin Sodium (Porcine) (Heparin Na) 5,000 unit SC Q8 [facility] Last Admin: 05/12/18 05:54 Dose: 5,000 unit Hydromorphone HCl (Dilaudid Inj) 0.5 mg IV Q4H PRN PRN PRN Reason: SEVERE PAIN (6-10/10) Last Admin: 05/12/18 02:53 Dose: 0.5 mg Sodium Chloride () 250 mls @ 15 mls/hr IV .[id number] PRN PRN Reason: SALINE FLUSH Influenza Virus Vaccine Quadrival (Fluarix/Fluzone) 0.5 ml IM .ONCE ONE Stop: 05/12/18 10:01 Morphine Sulfate () 2 mg IV Q4H PRN PRN PRN Reason: SEVERE PAIN (6-10/10) Last Admin: 05/11/18 18:11 Dose: 2 mg Ondansetron HCl (Zofran) 4 mg IV Q8H PRN PRN PRN Reason: Nausea Last Admin: 05/11/18 05:33 Dose: 4 mg Sodium Chloride () 5 - 30 ml IV UD PRN PRN Reason: SALINE FLUSH Last Admin: 05/12/18 02:55 Dose: 10 ml Throat Lozenges (Cepacol Sore Throat Lozenge) 2 lozenge MUCOUS MEM Q2H PRN PRN PRN Reason: SORE THROAT Last Admin: 05/11/18 20:04 Dose: 2 lozenge Medical Necessity - Tobacco Use Smoking Status: Never smoker Assessment/Plan All Active Problems (Last Updated 08/11/17 @ 14:55 by Clementine Rosales) Acute respiratory failure with hypoxia (Acute) Pulmonary edema (Acute) 1. Acute hypoxic respiratory failure secondary to acute pulmonary edema/Aspiration - She had same day R shoulder surgery yesterday and had to be re-intubated - Currently extubated and doing well - Echo was normal - Aspiration during speech eval and each episode led to a desaturation - Currently on 2L NC - Repeat speech eval today 2. Right shoulder arthritis with impingement POD1 from subacromial decompression - Pain management per ortho - Primary plan per ortho 3. HLD - she has been stable with no side-effects - c/w crestor 4. Depression - stable - c/w zoloft DVT: Heparin Code Visit Inpatient E&M: 98710 Subs Hosp L2
--- NOTE | 2018-05-12 10:38 | RAD_ITS ---
STUDY: X-RAY CHEST REASON FOR EXAM: Female, 62 years old. Shortness of breath. Dyspnea. Hemoptysis following intubation. TECHNIQUE: PA and lateral views of the chest. COMPARISON: Comparison is made with prior examination dated May 10, 2018. FINDINGS: The endotracheal has been removed. Mild degree of the increased markings at the left lung base suggestive of a left basilar atelectasis and/or early infiltrate. There is no demonstrated pleural abnormality. Normal size heart. Normal mediastinum and ronny. Normal visualized pulmonary arteries. Normal visualized aortic arch and descending thoracic aorta. Normal visualized thoracic spine. Normal visualized ribs, clavicles, and shoulders. There is no demonstrated abnormality of the visualized soft tissue structures of the upper abdomen. RAD/Chest PA and Lateral IMPRESSION: Increased markings at the left lung base suggests a left basilar atelectasis and/or early infiltrate. Electronically Signed: Stef Youngblood MD at 13:42 EST Tel [phone], Service support ,
--- NOTE | 2018-05-12 13:00 | RAD_ITS ---
STUDY: SWALLOWING STUDY REASON FOR EXAM: Female, 62 years old. Dysphagia following intubation. TECHNIQUE: The examination was performed with Speech Pathology in attendance. Under fluoroscopic observation, the patient ingested thin barium, thick barium, barium pudding, and barium coated cracker. FLUOROSCOPY TIME: 3:44 minutes/seconds. 3262 fluoroscopic images were obtained. RADIOLOGIST INVOLVEMENT: Radiologist was present and providing direct supervision. COMPARISON: None. FINDINGS: The following was observed during swallowing of the various mixtures of barium: Thin Barium: There was no evidence of aspiration or laryngeal penetration. Thick Barium: There was no evidence of aspiration or laryngeal penetration. Barium Pudding: There was no evidence of aspiration or laryngeal penetration. Barium Coated Cracker: There was no evidence of aspiration or laryngeal penetration. The patient ingested a 12 mm tablet of barium. There was delayed transit of the tablet through the esophagus. RAD/Swallowing Function w/Video IMPRESSION: Normal tailored barium swallow study. No evidence of increased risk for aspiration. The swallow study findings were discussed with the patient by the speech pathologist at the conclusion of the examination. Please see speech pathology report for more information and recommendations. Electronically Signed: Stef Youngblood MD at 14:30 EST Tel [phone], Service support ,
--- NOTE | 2018-05-12 13:15 | SP.MBSS_ITS ---
PRIMARY / SECONDARY DIAGNOSIS: dysphagia (R13.12) REFERRING PHYSICIAN: Dr. Dillan Sewell MD CURRENT DIET: NPO DENTITION: WFL MENTAL STATUS: WNL RESPIRATORY STATUS: O2 via room air PREVIOUS MODIFIED BARIUM SWALLOW STUDY: none REASON FOR REFERRAL: Patient is a 62 year old female referred for a modified barium swallow (MBS) study to objectively assess the Patients oropharyngeal swallow function under fluoroscopy secondary to concerns with swallow function integrity following brief multiple intubation / extubation events (surgery / post-surgery, both <24 hours in length), with evaluation at bedside inconclusive. ADDITIONAL OBJECTIVE ASSESSMENT RESULTS: 05/10/2018 CXR revealed worsening bilateral perihilar opacities which are likely due to pulmonary edema. 05/12/2018 CXR revealed increased markings at the left lung base suggestive of left basilar atelectasis and / or early infiltrate. MEDICAL HISTORY: Anxiety, hyperlipidemia, seasonal allergies, sub-acromial impingement, arthritis, and bicep tendonitis of the right shoulder. STUDY FINDINGS: Patient participated in a Modified Barium Swallow (MBS) study on 05/12/2018. Dr. Youngblood was the radiologist present for this evaluation. This study was recorded in the lateral view and images were sent to PACs for storage. The following consistencies were presented to this patient for analysis of oropharyngeal swallow function: thin liquids, pudding, and a regular textured, Katie Doone cookie. Results of the MBS are as follows: PENETRATION / ASPIRATION SCALE (COLE): 1 = does not enter airway 2 = enters airway/above vocal folds/ejected 3 = enters airway/above vocal folds/not ejected 4 = enters airway/contacts vocal folds/ejected 5 = enters airway/contacts vocal folds/not ejected 6 = enters airway/below vocal folds/ejected 7 = enters airway/below vocal folds/not ejected despite effort 8 = enters airway/below vocal folds/no effort PENETRATION / ASPIRATION SCALE (SCORE): Thin liquid - 5 mL tsp.: 1 Thin liquids via cup (single sip): 1 Thin liquids via cup (single sip): 1 Thin liquids via cup (single sip): 1 Thin liquids via straw (single sip): 1 Thin liquids via straw (sequential swallows): 1 Pudding via spoon: 1 Regular textured cookie: 1 Thin liquids via cup (12mm tablet): 2 Thin liquids via cup (single sip chaser): 1 Thin liquids via cup (single sip chaser): 1 Thin liquids via cup (single sip chaser): 1 Pudding via spoon (chaser): 1 Pudding via spoon (chaser): 1 Thin liquids via cup (single sip chaser): 1 Thin liquids via cup (single sip chaser): 1 IMPRESSION: DIAGNOSIS: mild oropharyngeal dysphagia (R13.12) with abnormal esophageal phase findings ORAL PHASE CHARACTERIZED BY: LABIAL SEAL: no labial escape TONGUE CONTROL DURING BOLUS MANIPULATION: cohesive bolus between tongue to palatal seal BOLUS PREPARATION / MASTICATION: prolonged chewing/mashing with complete recollection BOLUS TRANSPORT / LINGUAL MOTION: brisk tongue motion with piecemeal deglutition ORAL RESIDUE: trace residue lining oral structures PHARYNGEAL PHASE CHARACTERIZED BY: INITIATION OF PHARYNGEAL SWALLOW: bolus head in valleculae at first hyoid excursion SOFT PALATE ELEVATION: no bolus between soft palate and pharyngeal wall LARYNGEAL ELEVATION: complete superior movement of thyroid cartilage with complete approximation of arytenoids cartilage to epiglottic petiole ANTERIOR HYOID EXCURSION: partial anterior movement EPIGLOTTIC MOVEMENT: complete epiglottic inversion LARYNGEAL VESTIBULE CLOSURE AT HEIGHT OF SWALLOW: incomplete laryngeal vestibule closure with narrow column of air/contrast in laryngeal vestibule PHARYNGEAL STRIPPING WAVE: pharyngeal stripping wave present / complete PHARYNGOESOPHAGEAL SEGMENT OPENING: partial distension and partial duration; partial obstruction of flow TONGUE BASE RETRACTION: trace column of contrast between tongue base and posterior pharyngeal wall PHARYNGEAL RESIDUE: trace residue within or on pharyngeal structures ESOPHAGEAL PHASE CHARACTERIZED BY: ESOPHAGEAL BOLUS CLEARANCE IN THE UPRIGHT POSITION: esophageal retention with retrograde flow below pharyngoesophageal segment (PES) and significantly delayed clearance particularly following ingestion of the 12mm tablet, requiring multiple thin liquid and pudding texture chasers to facilitate eventual clearance. EFFECTS OF TREATMENT STRATEGIES ATTEMPTED: Liquid chaser = moderately effective DIET TEXTURE RECOMMENDATIONS: Will recommend a regular textured, thin liquid diet. COMPENSATORY STRATEGIES RECOMMENDED: Reduced bolus volume, reduced rate of intake, liquid chaser at reasonable intervals, seated upright at 90 degrees during PO intake, remain upright for 30-60 minutes post meal (GERD precaution), medications whole or crushed with purees (as requested by Patient) INTERPRETATION OF RESULTS: Patient presents with mild oropharyngeal dysphagia (R13.12) with abnormal esophageal phase findings likely attributed to primary presbyphagia likely exacerbated by phagophobia and iatrogenic causes (irritation / edema post extubation). Oral preparatory phase marked by prolonged albeit effective mastication, with reduction in rate associated with mandibular discomfort and reduced range of motion likely iatrogenic in cause (intubation / extubation). Oral transportation marked by occasional mild undulating movements during bolus transportation that had limited impact on transpiration. The majority of the mild pharyngeal phase abnormalities detailed through the MBSImP scoring system above were noted during ingestion of thin liquids with the 12mm barium tablet, where the Patient was noted to be quite anxious prior to and immediately post deglutition in anticipation of swallowing dysfunction, with the entirety of the trial clearly abnormal from all other trials, with noted aerophagia and generalized dyssynchrony likely attributed to a rather significant anxiety / phagophobia component. Esophageal phase marked by esophageal retention with retrograde flow below pharyngoesophageal segment and significantly delayed clearance particularly following ingestion of the 12mm tablet, requiring multiple thin liquid and pudding texture chasers to facilitate eventual clearance; this was apparent primarily with the 12mm tablet, with no additional significant abnormalities appreciated. Noted small cricopharyngeal bar located at the C-5 / C-6 level with no effect on pharyngoesophageal motility. Post prandial coughing appreciated on two separate occasions without any association to penetration / aspiration or clinically relevant oropharyngeal abnormities. RECOMMENDATIONS: Discussed findings with the Patient and Patients family immediately following MBS completion, with the Patient and Patients family able to comprehend and express recommended intake precautions detailed above with sufficient detail to suggest high likelihood of compliance. Recommend additional assessment of the Patients esophageal functioning via soaker helper, as it is outside the scope of the modified barium swallow study to fully assess esophageal abnormalities. Will continue to follow for 1 additional session during the Patients acute care admission to ensure diet texture tolerance. ADDITIONAL COMMENTS/RECOMMENDATIONS: Results and recommendations were discussed with the Patient immediately following MBS completion, with the Patient verbalizing understanding and agreement with all recommendations and education provided. IMAGE COUNT: [id number] Meek Jacob M.A., [facility] TECH [facility] Speech-Language Pathology Department [email or web address]
--- NOTE | 2018-05-12 13:17 | PCM.PN.INT ---
Subjective: Patient did well overnight. No acute issues were reported. Patient reports improvement in dyspnea on exertion. Patient remained on nasal cannula oxygen this morning. Objective: Chest x-ray was personally reviewed and shows no residual infiltrates. General: Alert, Oriented x3, Cooperative, No apparent distress, Well developed, Well nourished, - - Speaks in full sentences. HEENT: Atraumatic, PERRLA, EOMI, Normocephalic Oral: Moist Mucosa, No Gingival or Mucosal Lesions/ Ulcerations Neck: Supple, No JVD, No Nodes, Trachea Midline Lungs: Clear to auscultation, Normal air movement, No rhonchi, No wheeze, No rales Cardiovascular: Regular rate, Regular Rhythm, Normal S1, Normal S2, No murmurs, No rub noted, No Gallop Abdomen: Bowel Sounds Present, Soft, Non Tender, Non-Distended Extremities: No clubbing, No cyanosis, No edema, Capillary Refill Less than 3 Seconds Skin: No rashes, No breakdown Musculoskeletal: No Tenderness to Palpation of Joints or Extremities Lymphatic: No Cervical, Supraclavicular, or Inguinal Adenopathy Neurological: Cranial nerves II-XII grossly intact, Neuro grossly intact, Motor Exam 5/5 strength throughout Psych/Mental Status: Alert and oriented to time, place, person, mood and affect Vital Signs Temp Pulse Resp BP Pulse Ox 36.4 C L 79 18 141/72 H 98 05/12/18 08:39 05/12/18 08:39 05/12/18 08:39 05/12/18 08:39 05/12/18 08:39 Oxygen Flow Rate (L/min) 2 Oxygen Delivery Method Room Air Weight: 70.477 kg Body Mass Index (BMI) 26.6 Intake and Output for Last 24 Hours 05/10/18 05/11/18 05/12/18 23:59 23:59 23:59 Intake Total 197 / 197 282 / 282 0 / 0 Output Total 325 / 325 2225 / 2225 800 / 800 Balance -128 / -128 -1943 / -1943 -800 / -800 Labs (Last 48 Hours) 05/10/18 05/10/18 05/10/18 15:15 16:00 16:00 WBC 17.0 H RBC 5.33 Hgb 13.9 Hct 41.7 MCV 78.2 L MCH 26.1 L MCHC 33.3 RDW 15.0 H RDW Differential 43.0 Plt Count 273 MPV 11.5 Immature Gran % (Auto) 0.300 Neut % (Auto) 88.6 H Lymph % (Auto) 5.6 L [place] % (Auto) 5.3 Eos % (Auto) 0.1 Baso % (Auto) 0.1 Absolute Neuts (auto) 15.1 H Absolute Lymphs (auto) 0.95 Total Counted Not Reportable Differential Comment Specimen Type ART Sample Site L Brachial pH 7.30 L Bicarbonate Actual 23.6 POC Total CO2 25 Base Excess -3 L O2 Saturation 90 L O2 % 85 ABG pCO2 48.2 H ABG pO2 64 L Duglas Test NA Respiration Rate 12 O2 Delivery Device Vent Vent Mode A-C Tidal Volume 450 POC PEEP 10 POC Pressure Suppt Blood Gas Notified Whom ICU MD Blood Gas Notified Time 1504 Sodium 136 Potassium 4.5 Chloride 103 Carbon Dioxide 23.0 Anion Gap 10 BUN 12 Creatinine 0.94 Estim Creat Clear Calc 49.08 Est GFR (MDRD) Af Amer 77 Est GFR (MDRD) Non-Af 64 BUN/Creatinine Ratio 12.7 Glucose 180 H Calcium 8.3 L Phosphorus 4.5 Magnesium 1.6 Total Creatine Kinase Troponin I B-Natriuretic Peptide Triglycerides MRSA (PCR) 05/10/18 05/10/18 05/10/18 16:00 16:00 16:00 WBC RBC Hgb Hct MCV MCH MCHC RDW RDW Differential Plt Count MPV Immature Gran % (Auto) Neut % (Auto) Lymph % (Auto) [place] % (Auto) Eos % (Auto) Baso % (Auto) Absolute Neuts (auto) Absolute Lymphs (auto) Total Counted Differential Comment Specimen Type Sample Site pH Bicarbonate Actual POC Total CO2 Base Excess O2 Saturation O2 % ABG pCO2 ABG pO2 Duglas Test Respiration Rate O2 Delivery Device Vent Mode Tidal Volume POC PEEP POC Pressure Suppt Blood Gas Notified Whom Blood Gas Notified Time Sodium Potassium Chloride Carbon Dioxide Anion Gap BUN Creatinine Estim Creat Clear Calc Est GFR (MDRD) Af Amer Est GFR (MDRD) Non-Af BUN/Creatinine Ratio Glucose Calcium Phosphorus Magnesium Total Creatine Kinase 119 Troponin I 0.235 H B-Natriuretic Peptide 84.0 Triglycerides 284 H MRSA (PCR) 05/10/18 05/10/18 05/10/18 17:00 18:55 18:55 WBC 16.4 H RBC 5.26 Hgb 13.2 Hct 40.9 MCV 77.8 L MCH 25.1 L MCHC 32.3 RDW 14.7 H RDW Differential 41.2 Plt Count 252 MPV 10.9 Immature Gran % (Auto) Neut % (Auto) Lymph % (Auto) [place] % (Auto) Eos % (Auto) Baso % (Auto) Absolute Neuts (auto) Absolute Lymphs (auto) Total Counted Differential Comment Specimen Type Sample Site pH Bicarbonate Actual POC Total CO2 Base Excess O2 Saturation O2 % ABG pCO2 ABG pO2 Duglas Test Respiration Rate O2 Delivery Device Vent Mode Tidal Volume POC PEEP POC Pressure Suppt Blood Gas Notified Whom Blood Gas Notified Time Sodium Potassium Chloride Carbon Dioxide Anion Gap BUN Creatinine Estim Creat Clear Calc Est GFR (MDRD) Af Amer Est GFR (MDRD) Non-Af BUN/Creatinine Ratio Glucose Calcium Phosphorus Magnesium Total Creatine Kinase Troponin I 0.425 H B-Natriuretic Peptide Triglycerides MRSA (PCR) Negative 05/10/18 05/11/18 05/11/18 22:05 04:20 04:20 WBC 12.0 H RBC 4.78 Hgb 12.0 Hct 36.4 L MCV 76.2 L MCH 25.1 L MCHC 33.0 RDW 14.8 H RDW Differential 41.6 Plt Count 211 MPV 10.9 Immature Gran % (Auto) 0.100 Neut % (Auto) 88.1 H Lymph % (Auto) 4.3 L [place] % (Auto) 7.4 Eos % (Auto) 0.0 Baso % (Auto) 0.1 Absolute Neuts (auto) 10.6 H Absolute Lymphs (auto) 0.51 L Total Counted Not Reportable Differential Comment Specimen Type Sample Site pH Bicarbonate Actual POC Total CO2 Base Excess O2 Saturation O2 % ABG pCO2 ABG pO2 Duglas Test Respiration Rate O2 Delivery Device Vent Mode Tidal Volume POC PEEP POC Pressure Suppt Blood Gas Notified Whom Blood Gas Notified Time Sodium 140 Potassium 3.9 Chloride 106 Carbon Dioxide 21.0 Anion Gap 13 BUN 16 Creatinine 1.02 Estim Creat Clear Calc 45.23 Est GFR (MDRD) Af Amer 71 Est GFR (MDRD) Non-Af 58 L BUN/Creatinine Ratio 15.7 Glucose 135 H Calcium 8.7 Phosphorus 2.5 Magnesium 1.6 Total Creatine Kinase Troponin I 0.568 H B-Natriuretic Peptide Triglycerides MRSA (PCR) 05/11/18 05/12/18 05/12/18 06:47 06:48 06:48 WBC 8.7 RBC 4.31 Hgb 11.0 L Hct 35.2 L MCV 81.7 MCH 25.5 L MCHC 31.3 L RDW 15.3 H RDW Differential 44.8 H Plt Count 186 MPV 11.4 Immature Gran % (Auto) 0.100 Neut % (Auto) 86.9 H Lymph % (Auto) 6.3 L [place] % (Auto) 6.7 Eos % (Auto) 0.0 Baso % (Auto) 0.0 Absolute Neuts (auto) 7.6 Absolute Lymphs (auto) 0.55 L Total Counted Not Reportable Differential Comment Specimen Type ART Sample Site R Radial pH 7.43 Bicarbonate Actual 24.2 POC Total CO2 25 Base Excess 0 O2 Saturation 95 O2 % 35 ABG pCO2 36.5 ABG pO2 73 L Duglas Test POS Respiration Rate O2 Delivery Device Vent Vent Mode CPAP PS Tidal Volume POC PEEP 5 POC Pressure Suppt 5 Blood Gas Notified Whom ICU MD Blood Gas Notified Time 640 Sodium 139 Potassium 4.4 Chloride 105 Carbon Dioxide 26.0 Anion Gap 8 BUN 22 H Creatinine 0.90 Estim Creat Clear Calc 51.26 Est GFR (MDRD) Af Amer 81 Est GFR (MDRD) Non-Af 67 BUN/Creatinine Ratio 24.3 H Glucose 106 Calcium 8.9 Phosphorus Magnesium Total Creatine Kinase Troponin I B-Natriuretic Peptide Triglycerides MRSA (PCR) Clinical Impression(s) from Imaging Studies Chest X-Ray 05/10/18 13:30 IMPRESSION: Recommend retraction of the ET tube as above. Development of patchy airspace disease in the perihilar region bilaterally Electronically Signed: Ahsan Harding DO at 14:41 EST Tel , Service support , Chest X-Ray 05/10/18 13:34 IMPRESSION: Satisfactory position of the support lines and tubes. Worsening bilateral perihilar opacities which are likely due to pulmonary edema. Electronically Signed: Jose Encarnacion, at 16:18 EST Tel , Service support , Chest X-Ray 05/10/18 15:16 IMPRESSION: The tip of the endotracheal tube is at the level of the jonathan. It should be pulled back approximately 2.5 cm. Pulmonary edema. Electronically Signed: Stef Youngblood MD at 15:54 EST Tel [phone], Service support , Medical Necessity - Tobacco Use Smoking Status: Never smoker Assessment/Plan All Active Problems (Last Updated 08/11/17 @ 14:55 by Clementine Rosales) Acute respiratory failure with hypoxia (Acute) Pulmonary edema (Acute) RECOMMENDATIONS: 1. Walking oximetry prior to discharge 2. Increase activity as tolerated 3. No further diuretic therapy 4. No outpatient follow-up with pulmonary as indicated IMPRESSIONS: 1. Acute hypoxic respiratory failure She continues to do well. Patient should have a walking oximetry prior to discharge to ensure no desaturation with ambulation. The patient is able to tolerate this, then patient can be discharged without pulmonary follow-up. No wheezing is noted on exam, so pulmonary function tests are likely not indicated. Patient is acting as though pulmonary edema was the etiology. Doubt patient would require further diuretic therapy. Continue with incentive spirometer. 2. Hyperlipidemia/right shoulder surgery postop day #2 Complicates care, management, recovery and prognosis. Orthopedic surgery is currently following. Code Visit Inpatient E&M: [id number] Subs Hosp L2
--- NOTE | 2018-05-12 13:21 | PN_ITS ---
Subjective: Patient did well overnight. No acute issues were reported. Patient reports improvement in dyspnea on exertion. Patient remained on nasal cannula oxygen this morning. Objective: Chest x-ray was personally reviewed and shows no residual infiltrates. General: Alert, Oriented x3, Cooperative, No apparent distress, Well developed, Well nourished, - - Speaks in full sentences. HEENT: Atraumatic, PERRLA, EOMI, Normocephalic Oral: Moist Mucosa, No Gingival or Mucosal Lesions/ Ulcerations Neck: Supple, No JVD, No Nodes, Trachea Midline Lungs: Clear to auscultation, Normal air movement, No rhonchi, No wheeze, No rales Cardiovascular: Regular rate, Regular Rhythm, Normal S1, Normal S2, No murmurs, No rub noted, No Gallop Abdomen: Bowel Sounds Present, Soft, Non Tender, Non-Distended Extremities: No clubbing, No cyanosis, No edema, Capillary Refill Less than 3 Seconds Skin: No rashes, No breakdown Musculoskeletal: No Tenderness to Palpation of Joints or Extremities Lymphatic: No Cervical, Supraclavicular, or Inguinal Adenopathy Neurological: Cranial nerves II-XII grossly intact, Neuro grossly intact, Motor Exam 5/5 strength throughout Psych/Mental Status: Alert and oriented to time, place, person, mood and affect Vital Signs Temp Pulse Resp BP Pulse Ox 36.4 C L 79 18 141/72 H 98 05/12/18 08:39 05/12/18 08:39 05/12/18 08:39 05/12/18 08:39 05/12/18 08:39 Oxygen Flow Rate (L/min) 2 Oxygen Delivery Method Room Air Weight: 70.477 kg Body Mass Index (BMI) 26.6 Intake and Output for Last 24 Hours 05/10/18 05/11/18 05/12/18 23:59 23:59 23:59 Intake Total 197 / 197 282 / 282 0 / 0 Output Total 325 / 325 2225 / 2225 800 / 800 Balance -128 / -128 -1943 / -1943 -800 / -800 Labs (Last 48 Hours) 05/10/18 05/10/18 05/10/18 15:15 16:00 16:00 WBC 17.0 H RBC 5.33 Hgb 13.9 Hct 41.7 MCV 78.2 L MCH 26.1 L MCHC 33.3 RDW 15.0 H RDW Differential 43.0 Plt Count 273 MPV 11.5 Immature Gran % (Auto) 0.300 Neut % (Auto) 88.6 H Lymph % (Auto) 5.6 L [place] % (Auto) 5.3 Eos % (Auto) 0.1 Baso % (Auto) 0.1 Absolute Neuts (auto) 15.1 H Absolute Lymphs (auto) 0.95 Total Counted Not Reportable Differential Comment Specimen Type ART Sample Site L Brachial pH 7.30 L Bicarbonate Actual 23.6 POC Total CO2 25 Base Excess -3 L O2 Saturation 90 L O2 % 85 ABG pCO2 48.2 H ABG pO2 64 L Duglas Test NA Respiration Rate 12 O2 Delivery Device Vent Vent Mode A-C Tidal Volume 450 POC PEEP 10 POC Pressure Suppt Blood Gas Notified Whom ICU MD Blood Gas Notified Time 1504 Sodium 136 Potassium 4.5 Chloride 103 Carbon Dioxide 23.0 Anion Gap 10 BUN 12 Creatinine 0.94 Estim Creat Clear Calc 49.08 Est GFR (MDRD) Af Amer 77 Est GFR (MDRD) Non-Af 64 BUN/Creatinine Ratio 12.7 Glucose 180 H Calcium 8.3 L Phosphorus 4.5 Magnesium 1.6 Total Creatine Kinase Troponin I B-Natriuretic Peptide Triglycerides MRSA (PCR) 05/10/18 05/10/18 05/10/18 16:00 16:00 16:00 WBC RBC Hgb Hct MCV MCH MCHC RDW RDW Differential Plt Count MPV Immature Gran % (Auto) Neut % (Auto) Lymph % (Auto) [place] % (Auto) Eos % (Auto) Baso % (Auto) Absolute Neuts (auto) Absolute Lymphs (auto) Total Counted Differential Comment Specimen Type Sample Site pH Bicarbonate Actual POC Total CO2 Base Excess O2 Saturation O2 % ABG pCO2 ABG pO2 [place]las Test Respiration Rate O2 Delivery Device Vent Mode Tidal Volume POC PEEP POC Pressure Suppt Blood Gas Notified Whom Blood Gas Notified Time Sodium Potassium Chloride Carbon Dioxide Anion Gap BUN Creatinine Estim Creat Clear Calc Est GFR (MDRD) Af Amer Est GFR (MDRD) Non-Af BUN/Creatinine Ratio Glucose Calcium Phosphorus Magnesium Total Creatine Kinase 119 Troponin I 0.235 H B-Natriuretic Peptide 84.0 Triglycerides 284 H MRSA (PCR) 05/10/18 05/10/18 05/10/18 17:00 18:55 18:55 WBC 16.4 H RBC 5.26 Hgb 13.2 Hct 40.9 MCV 77.8 L MCH 25.1 L MCHC 32.3 RDW 14.7 H RDW Differential 41.2 Plt Count 252 MPV 10.9 Immature Gran % (Auto) Neut % (Auto) Lymph % (Auto) [place] % (Auto) Eos % (Auto) Baso % (Auto) Absolute Neuts (auto) Absolute Lymphs (auto) Total Counted Differential Comment Specimen Type Sample Site pH Bicarbonate Actual POC Total CO2 Base Excess O2 Saturation O2 % ABG pCO2 ABG pO2 [place] Test Respiration Rate O2 Delivery Device Vent Mode Tidal Volume POC PEEP POC Pressure Suppt Blood Gas Notified Whom Blood Gas Notified Time Sodium Potassium Chloride Carbon Dioxide Anion Gap BUN Creatinine Estim Creat Clear Calc Est GFR (MDRD) Af Amer Est GFR (MDRD) Non-Af BUN/Creatinine Ratio Glucose Calcium Phosphorus Magnesium Total Creatine Kinase Troponin I 0.425 H B-Natriuretic Peptide Triglycerides MRSA (PCR) Negative 05/10/18 05/11/18 05/11/18 22:05 04:20 04:20 WBC 12.0 H RBC 4.78 Hgb 12.0 Hct 36.4 L MCV 76.2 L MCH 25.1 L MCHC 33.0 RDW 14.8 H RDW Differential 41.6 Plt Count 211 MPV 10.9 Immature Gran % (Auto) 0.100 Neut % (Auto) 88.1 H Lymph % (Auto) 4.3 L [place] % (Auto) 7.4 Eos % (Auto) 0.0 Baso % (Auto) 0.1 Absolute Neuts (auto) 10.6 H Absolute Lymphs (auto) 0.51 L Total Counted Not Reportable Differential Comment Specimen Type Sample Site pH Bicarbonate Actual POC Total CO2 Base Excess O2 Saturation O2 % ABG pCO2 ABG pO2 D[place]las Test Respiration Rate O2 Delivery Device Vent Mode Tidal Volume POC PEEP POC Pressure Suppt Blood Gas Notified Whom Blood Gas Notified Time Sodium 140 Potassium 3.9 Chloride 106 Carbon Dioxide 21.0 Anion Gap 13 BUN 16 Creatinine 1.02 Estim Creat Clear Calc 45.23 Est GFR (MDRD) Af Amer 71 Est GFR (MDRD) Non-Af 58 L BUN/Creatinine Ratio 15.7 Glucose 135 H Calcium 8.7 Phosphorus 2.5 Magnesium 1.6 Total Creatine Kinase Troponin I 0.568 H B-Natriuretic Peptide Triglycerides MRSA (PCR) 05/11/18 05/12/18 05/12/18 06:47 06:48 06:48 WBC 8.7 RBC 4.31 Hgb 11.0 L Hct 35.2 L MCV 81.7 MCH 25.5 L MCHC 31.3 L RDW 15.3 H RDW Differential 44.8 H Plt Count 186 MPV 11.4 Immature Gran % (Auto) 0.100 Neut % (Auto) 86.9 H Lymph % (Auto) 6.3 L [place] % (Auto) 6.7 Eos % (Auto) 0.0 Baso % (Auto) 0.0 Absolute Neuts (auto) 7.6 Absolute Lymphs (auto) 0.55 L Total Counted Not Reportable Differential Comment Specimen Type ART Sample Site R Radial pH 7.43 Bicarbonate Actual 24.2 POC Total CO2 25 Base Excess 0 O2 Saturation 95 O2 % 35 ABG pCO2 36.5 ABG pO2 73 L [place] Test POS Respiration Rate O2 Delivery Device Vent Vent Mode CPAP PS Tidal Volume POC PEEP 5 POC Pressure Suppt 5 Blood Gas Notified Whom ICU MD Blood Gas Notified Time 640 Sodium 139 Potassium 4.4 Chloride 105 Carbon Dioxide 26.0 Anion Gap 8 BUN 22 H Creatinine 0.90 Estim Creat Clear Calc 51.26 Est GFR (MDRD) Af Amer 81 Est GFR (MDRD) Non-Af 67 BUN/Creatinine Ratio 24.3 H Glucose 106 Calcium 8.9 Phosphorus Magnesium Total Creatine Kinase Troponin I B-Natriuretic Peptide Triglycerides MRSA (PCR) Clinical Impression(s) from Imaging Studies Chest X-Ray 05/10/18 13:30 IMPRESSION: Recommend retraction of the ET tube as above. Development of patchy airspace disease in the perihilar region bilaterally Electronically Signed: Ahsan Harding DO at 14:41 EST Tel , Service support , Chest X-Ray 05/10/18 13:34 IMPRESSION: Satisfactory position of the support lines and tubes. Worsening bilateral perihilar opacities which are likely due to pulmonary edema. Electronically Signed: Jose Encarnacion, at 16:18 EST Tel , Service support , Chest X-Ray 05/10/18 15:16 IMPRESSION: The tip of the endotracheal tube is at the level of the jonathan. It should be pulled back approximately 2.5 cm. Pulmonary edema. Electronically Signed: Stef Youngblood MD at 15:54 EST Tel [phone], Service support , Medical Necessity - Tobacco Use Smoking Status: Never smoker Assessment/Plan All Active Problems (Last Updated 08/11/17 @ 14:55 by Clementine Rosales) Acute respiratory failure with hypoxia (Acute) Pulmonary edema (Acute) RECOMMENDATIONS: 1. Walking oximetry prior to discharge 2. Increase activity as tolerated 3. No further diuretic therapy 4. No outpatient follow-up with pulmonary as indicated IMPRESSIONS: 1. Acute hypoxic respiratory failure She continues to do well. Patient should have a walking oximetry prior to discharge to ensure no desaturation with ambulation. The patient is able to tolerate this, then patient can be discharged without pulmonary follow-up. No wheezing is noted on exam, so pulmonary function tests are likely not indicated. Patient is acting as though pulmonary edema was the etiology. Doubt patient would require further diuretic therapy. Continue with incentive spirometer. 2. Hyperlipidemia/right shoulder surgery postop day #2 Complicates care, management, recovery and prognosis. Orthopedic surgery is currently following. Code Visit Inpatient E&M: 58164 Subs Hosp L2
[2018-05-12] MEDS: Furosemide 20 MG/2 ML VIAL IV (16:09)
[2018-05-12] MEDS: Atorvastatin Calcium 40 MG Tablet PO (20:33)
[2018-05-12] MEDS: HYDROcodone Bitartrate/Apap 5/325 Tablet PO (20:33)
--- NOTE | 2018-05-12 22:45 | NURSING ---
pt on RA at start of shift and her o2 sat is 95%. pt asleep and noted her O2 sat is 88% on the monitor, pt asymptomatic when woken up. put pt on 2L NC, pt up to 96% on monitor. will monitor pt.
[2018-05-13 02:14] VITALS: BP 148/87; PULSE 67; RESP 16; TEMP 36.6; O2SAT 99
[2018-05-13] MEDS: Heparin Injection (Vial) 5,000 UNIT/ML VIAL 5000 UNIT SC (05:52)
[2018-05-13 06:13] LABS: Absolute Lymphocyte Count 0.86 X10^3/ul (0.83-4.51); Absolute Neutrophil Count 5.4 X10^3/uL (2.0-7.7); Basophil# 0.01 X10^3/uL; Basophil% 0.1 % (0-1); Eosinophil# 0.03 X10^3/uL; Eosinophils% 0.4 % (0-5); Hematocrit 35.3 % (37-47); Hemoglobin 10.9 g/dl (12.0-15.0); Lymphocyte # 0.86 X10^3/ul (4.0); Lymphocyte % 12.6 % (19-41); Mean Corp Hgb Conc 30.9 g/gl (32-36); Mean Corpuscular Hgb 25.2 pg (27.0-32.0); Mean Corpuscular Volume 81.5 fL (81-99); Mean Platelet Vol. 11.7 fl (6.2-12.0); Monocyte# 0.46 X10^3/uL; Monocyte% 6.7 % (0-10); Neutrophil # 5.44 X10^3/uL (2.7-7.7); Neutrophil % 79.9 % (47-70); Platelet Count 183 K/mm3 (150-450); RBC Distribution Width CV 15.3 % (11.6-14.6); RBC Distribution Width SD 45.1 fl (35.1-43.9); Red Blood Count 4.33 M/mm3 (4.2-5.4); White Blood Count 6.8 K/mm3 (4.4-11.0)
[2018-05-13 06:36] LABS: POSITIVE COUNT NO; POSITIVE DIFFERENTIAL NO; POSITIVE MORPHOLOGY NO
[2018-05-13 07:00] VITALS: O2SAT 98
[2018-05-13 07:02] LABS: Anion Gap 4 (5-15); BUN 26 mg/dL (7-18); BUN/Creat Ratio 29.5 RATIO (10-20); Chloride 105 mmol/L (98-107); Creatinine, Serum 0.88 mg/dL (0.55-1.02); EST Glomerular Filtration Rate 69 mL/min (>60); Est Glom Filt Rate - Afr Amer 83 mL/min (>60); Estimated Creatinine Clearance 52.42 ml/min; Glucose 108 mg/dL (74-106); Potassium 4.2 mmol/L (3.5-5.1); Sodium Level 139 mmol/L (136-145)
--- NOTE | 2018-05-13 08:33 | PCM.PROGNOTE ---
Patient Problems: Active and Suspected Problems (Last Updated 08/11/17 @ 14:55 by Clementine Rosales) Acute respiratory failure with hypoxia (Acute) Pulmonary edema (Acute) Subjective: Patient did well overnight. Patient continues to be proactive with her incentive spirometer and reports a mild sensation of cough with deep inhalation. Patient was placed on supplemental oxygen overnight, but feels subjectively improved compared to previous. Patient reports pain is well controlled. - Physical Exam General: Alert, Oriented x3, Cooperative, No apparent distress, Well developed, Well nourished, - - Speaking in full sentences. HEENT: Atraumatic, PERRLA, EOMI, Normocephalic, - - No scleral icterus or injection noted. Oral: Moist Mucosa, No Gingival or Mucosal Lesions/ Ulcerations Neck: Supple, No JVD, No Nodes, Trachea Midline Lungs: No rhonchi, No wheeze, Diminished, Rales - Bilateral bases, but improved with deep inhalation, - - Symmetric expansion. No dullness to percussion. Cardiovascular: Regular rate, Regular Rhythm, Normal S1, Normal S2, No murmurs, No rub noted, No Gallop Abdomen: Bowel Sounds Present, Soft, Non Tender, Non-Distended Extremities: No clubbing, No cyanosis, No edema, Capillary Refill Less than 3 Seconds, - - Right upper extremity in sling Skin: No rashes, No breakdown Musculoskeletal: No Tenderness to Palpation of Joints or Extremities Lymphatic: No Cervical, Supraclavicular, or Inguinal Adenopathy Neurological: Cranial nerves II-XII grossly intact, Neuro grossly intact, Motor Exam 5/5 strength throughout Psych/Mental Status: Alert and oriented to time, place, person, mood and affect Vital Signs Temp Pulse Resp BP Pulse Ox 36.6 C 67 16 148/87 H 98 05/13/18 02:14 05/13/18 02:14 05/13/18 02:14 05/13/18 02:14 05/13/18 07:00 Oxygen Flow Rate (L/min) 2 Oxygen Delivery Method Nasal Cannula Weight: 67.727 kg Body Mass Index (BMI) 26.6 Intake and Output for Last 24 Hours 05/11/18 05/12/18 05/13/18 23:59 23:59 23:59 Intake Total 282 / 282 0 / 0 800 / 800 Output Total 2225 / 2225 1700 / 1700 900 / 900 Balance -1943 / -1943 -1700 / -1700 -100 / -100 Laboratory Tests Past 24 Hrs 05/13/18 05/13/18 05:22 05:22 WBC 6.8 RBC 4.33 Hgb 10.9 L Hct 35.3 L MCV 81.5 MCH 25.2 L MCHC 30.9 L RDW 15.3 H RDW Differential 45.1 H Plt Count 183 MPV 11.7 Immature Gran % (Auto) 0.300 Neut % (Auto) 79.9 H Lymph % (Auto) 12.6 L [place] % (Auto) 6.7 Eos % (Auto) 0.4 Baso % (Auto) 0.1 Absolute Neuts (auto) 5.4 Absolute Lymphs (auto) 0.86 Total Counted Not Reportable Sodium 139 Potassium 4.2 Chloride 105 Carbon Dioxide 30.0 Anion Gap 4 L BUN 26 H Creatinine 0.88 Estim Creat Clear Calc 52.42 Est GFR (MDRD) Af Amer 83 Est GFR (MDRD) Non-Af 69 BUN/Creatinine Ratio 29.5 H Glucose 108 H Calcium 9.0 Clinical Impression(s) from Imaging Studies Chest X-Ray 05/10/18 13:30 IMPRESSION: Recommend retraction of the ET tube as above. Development of patchy airspace disease in the perihilar region bilaterally Electronically Signed: Ahsan Harding DO at 14:41 EST Tel , Service support , Chest X-Ray 05/10/18 13:34 IMPRESSION: Satisfactory position of the support lines and tubes. Worsening bilateral perihilar opacities which are likely due to pulmonary edema. Electronically Signed: Jose Encarnacion, at 16:18 EST Tel , Service support , Chest X-Ray 05/10/18 15:16 IMPRESSION: The tip of the endotracheal tube is at the level of the jonathan. It should be pulled back approximately 2.5 cm. Pulmonary edema. Electronically Signed: Stef Youngblood MD at 15:54 EST Tel [phone], Service support , Chest X-Ray 05/12/18 10:38 IMPRESSION: Increased markings at the left lung base suggests a left basilar atelectasis and/or early infiltrate. Electronically Signed: Stef Youngblood MD at 13:42 EST Tel [phone], Service support , Videofluoroscopic Swallow 05/12/18 13:00 IMPRESSION: Normal tailored barium swallow study. No evidence of increased risk for aspiration. The swallow study findings were discussed with the patient by the speech pathologist at the conclusion of the examination. Please see speech pathology report for more information and recommendations. Electronically Signed: Stef Youngblood MD at 14:30 EST Tel [phone], Service support , Medical Necessity - Tobacco Use Smoking Status: Never smoker Assessment/Plan All Active Problems (Last Updated 08/11/17 @ 14:55 by Clementine Rosales) Acute respiratory failure with hypoxia (Acute) Pulmonary edema (Acute) RECOMMENDATIONS: 1. Walking oximetry prior to discharge 2. Increase activity as tolerated 3. No outpatient follow-up with pulmonary as indicated IMPRESSIONS: 1. Acute hypoxic respiratory failure Patient still with intermittent need for supplemental oxygen. Clinical suspicion for atelectasis. Patient does not have any leukocytosis and aspiration was not reported. Patient did receive diuretic therapy yesterday with good response yesterday. Patient should have a walking oximetry today. Patient would not necessarily require any pulmonary follow-up from my perspective unless she develops new symptoms. 2. Hyperlipidemia/right shoulder surgery postop day #3 Complicates care, management, recovery and prognosis. Orthopedic surgery is currently following. Code Visit Inpatient E&M: 77043 Subs Hosp L2
--- NOTE | 2018-05-13 08:37 | PN_ITS ---
Patient Problems: Active and Suspected Problems (Last Updated 08/11/17 @ 14:55 by Clementine Rosales) Acute respiratory failure with hypoxia (Acute) Pulmonary edema (Acute) Subjective: Patient did well overnight. Patient continues to be proactive with her incentive spirometer and reports a mild sensation of cough with deep inhalation. Patient was placed on supplemental oxygen overnight, but feels subjectively improved compared to previous. Patient reports pain is well controlled. - Physical Exam General: Alert, Oriented x3, Cooperative, No apparent distress, Well developed, Well nourished, - - Speaking in full sentences. HEENT: Atraumatic, PERRLA, EOMI, Normocephalic, - - No scleral icterus or injection noted. Oral: Moist Mucosa, No Gingival or Mucosal Lesions/ Ulcerations Neck: Supple, No JVD, No Nodes, Trachea Midline Lungs: No rhonchi, No wheeze, Diminished, Rales - Bilateral bases, but improved with deep inhalation, - - Symmetric expansion. No dullness to percussion. Cardiovascular: Regular rate, Regular Rhythm, Normal S1, Normal S2, No murmurs, No rub noted, No Gallop Abdomen: Bowel Sounds Present, Soft, Non Tender, Non-Distended Extremities: No clubbing, No cyanosis, No edema, Capillary Refill Less than 3 Seconds, - - Right upper extremity in sling Skin: No rashes, No breakdown Musculoskeletal: No Tenderness to Palpation of Joints or Extremities Lymphatic: No Cervical, Supraclavicular, or Inguinal Adenopathy Neurological: Cranial nerves II-XII grossly intact, Neuro grossly intact, Motor Exam 5/5 strength throughout Psych/Mental Status: Alert and oriented to time, place, person, mood and affect Vital Signs Temp Pulse Resp BP Pulse Ox 36.6 C 67 16 148/87 H 98 05/13/18 02:14 05/13/18 02:14 05/13/18 02:14 05/13/18 02:14 05/13/18 07:00 Oxygen Flow Rate (L/min) 2 Oxygen Delivery Method Nasal Cannula Weight: 67.727 kg Body Mass Index (BMI) 26.6 Intake and Output for Last 24 Hours 05/11/18 05/12/18 05/13/18 23:59 23:59 23:59 Intake Total 282 / 282 0 / 0 800 / 800 Output Total 2225 / 2225 1700 / 1700 900 / 900 Balance -1943 / -1943 -1700 / -1700 -100 / -100 Laboratory Tests Past 24 Hrs 05/13/18 05/13/18 05:22 05:22 WBC 6.8 RBC 4.33 Hgb 10.9 L Hct 35.3 L MCV 81.5 MCH 25.2 L MCHC 30.9 L RDW 15.3 H RDW Differential 45.1 H Plt Count 183 MPV 11.7 Immature Gran % (Auto) 0.300 Neut % (Auto) 79.9 H Lymph % (Auto) 12.6 L [place] % (Auto) 6.7 Eos % (Auto) 0.4 Baso % (Auto) 0.1 Absolute Neuts (auto) 5.4 Absolute Lymphs (auto) 0.86 Total Counted Not Reportable Sodium 139 Potassium 4.2 Chloride 105 Carbon Dioxide 30.0 Anion Gap 4 L BUN 26 H Creatinine 0.88 Estim Creat Clear Calc 52.42 Est GFR (MDRD) Af Amer 83 Est GFR (MDRD) Non-Af 69 BUN/Creatinine Ratio 29.5 H Glucose 108 H Calcium 9.0 Clinical Impression(s) from Imaging Studies Chest X-Ray 05/10/18 13:30 IMPRESSION: Recommend retraction of the ET tube as above. Development of patchy airspace disease in the perihilar region bilaterally Electronically Signed: Ahsan Harding DO at 14:41 EST Tel , Service support , Chest X-Ray 05/10/18 13:34 IMPRESSION: Satisfactory position of the support lines and tubes. Worsening bilateral perihilar opacities which are likely due to pulmonary edema. Electronically Signed: Jose Encarnacion, at 16:18 EST Tel , Service support , Chest X-Ray 05/10/18 15:16 IMPRESSION: The tip of the endotracheal tube is at the level of the jonathan. It should be pulled back approximately 2.5 cm. Pulmonary edema. Electronically Signed: Stef Youngblood MD at 15:54 EST Tel [phone], Service support , Chest X-Ray 05/12/18 10:38 IMPRESSION: Increased markings at the left lung base suggests a left basilar atelectasis and/or early infiltrate. Electronically Signed: Stef Youngblood MD at 13:42 EST Tel [phone], Service support , Videofluoroscopic Swallow 05/12/18 13:00 IMPRESSION: Normal tailored barium swallow study. No evidence of increased risk for aspiration. The swallow study findings were discussed with the patient by the speech pathologist at the conclusion of the examination. Please see speech pathology report for more information and recommendations. Electronically Signed: Stef Youngblood MD at 14:30 EST Tel [phone], Service support , Medical Necessity - Tobacco Use Smoking Status: Never smoker Assessment/Plan All Active Problems (Last Updated 08/11/17 @ 14:55 by Clementine Rosales) Acute respiratory failure with hypoxia (Acute) Pulmonary edema (Acute) RECOMMENDATIONS: 1. Walking oximetry prior to discharge 2. Increase activity as tolerated 3. No outpatient follow-up with pulmonary as indicated IMPRESSIONS: 1. Acute hypoxic respiratory failure Patient still with intermittent need for supplemental oxygen. Clinical suspicion for atelectasis. Patient does not have any leukocytosis and aspiration was not reported. Patient did receive diuretic therapy yesterday with good response yesterday. Patient should have a walking oximetry today. Patient would not necessarily require any pulmonary follow-up from my perspective unless she develops new symptoms. 2. Hyperlipidemia/right shoulder surgery postop day #3 Complicates care, management, recovery and prognosis. Orthopedic surgery is currently following. Code Visit Inpatient E&M: [id number] Subs Hosp L2
[2018-05-13 08:57] VITALS: BP 111/66; PULSE 78; RESP 18; TEMP 36.4; O2SAT 98
--- NOTE | 2018-05-13 09:09 | DCINST_ITS ---
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 Weight Bearing Status: Weight bearing as tolerated Keep extremity elevated above heart level: Operative Extremity Call your doctor if your incision/area has: Continuous Slow Oozing, Sudden Increased Bleeding, Increased Pain/ Swelling, Increased Redness, Foul Smelling Discharge Call your doctor if you observe: Fever of 101 or Higher, Coldness, Increased Pain, Numbness or Tingling, Change in Color, Calf discomfort Allergies/Adverse Reactions: Allergies alendronate sodium [From Fosamax] Allergy (Mild, Verified 02/18/18 15:39) unknown penicillin V Allergy (Mild, Verified 02/18/18 15:39) rash Medications to take at Discharge ibuprofen 200 mg tablet 200 mg PO DAILY 08/11/17 rosuvastatin 10 mg tablet 20 mg PO DAILY 08/11/17 Acetaminophen/Codeine #3 [Tylenol #3 Tablet] 1 - 2 tablet PO Q6H PRN PRN 5 Days #30 tablet 05/10/18 Zolpidem Tartrate [Ambien (Generic)] 5 mg PO QHS PRN PRN #14 tablet 05/10/18 Sertraline HCl [Zoloft] 100 mg PO DAILY 05/11/18 The following prescriptions were given: Acetaminophen/Codeine #3 [Tylenol #3 Tablet] 1 - 2 tablet PO Q6H PRN PRN 5 Days #30 tablet PRN Reason: Pain Zolpidem Tartrate [Ambien (Generic)] 5 mg PO QHS PRN PRN #14 tablet PRN Reason: Insomnia Orders to be completed after discharge: 12 Lead EKG [[facility]] Time Frame: 05/05/18, Location: None Selected Primary Care Physician: Sherita Hendricks MD [Primary Care Provider] - Please follow up with your Primary Care Physician in: in 3-5 days Test Results: Test results from this visit will be discussed in further detail at your follow- up appointment, if applicable. Please Follow Up With: Kateryna Snyder DO - [phone] Proposed Discharge Date: 05/13/18
--- NOTE | 2018-05-13 09:12 | PCM.DC.SUM ---
Discharge Date and Diagnosis - Problem List Patient Problems: Active and Suspected Problems (Last Updated 08/11/17 @ 14:55 by Clementine Rosales) Acute respiratory failure with hypoxia (Acute) Pulmonary edema (Acute) Date of Admission: 05/10/18 Date of Discharge: 05/13/18 - Primary Discharge Diagnosis Active and Suspected Problems (Last Updated 08/11/17 @ 14:55 by Clementine Rosales) Acute respiratory failure with hypoxia (Acute) Pulmonary edema (Acute) - Secondary Discharge Diagnosis Chronic Problems (Last Updated 08/11/17 @ 14:55 by Clementine Rosales) Subacromial impingement of right shoulder (Chronic) 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 Consults: Aircraft Painter/Pulmonology Operations: arthroscopy, shoulder Procedures: 2-D Echocardiogram - Interpretation Summary The study was technically difficult. Contrast injection was performed. Left ventricular systolic function is normal. The estimated ejection fraction is 65 %. Trivial tricuspid valve insufficiency. Trivial pulmonic valve insufficiency. Right ventricular systolic pressure estimated to be 23 mmHg. No evidence for diastolic dysfunction. Summary of Care Provided: Per HPI: The patient is a 62 year old F with no significant medical history except sinusitis, allergy and dyslipidemia had elective right shoulder surgery today. She denies history of smoking, COPD, chronic heart disease including CHF or coronary artery disease. She was on her usual health before surgery. As per the anesthesiologist, after the patient was extubated was noted to be hypoxic and short of breath. LMA stabilization was tried but unsuccessful. Patient was given Narcan, flumazenil and paralytic reversal medicine but unsuccessful and was later on reintubated, put on ventilator and admitted in the ICU. Chest x-ray shows central, bilateral pulmonary edema. Twelve-lead EKG at 8:38 AM showed normal sinus rhythm, normal axis, QRS duration 88 ms at 78 beats per min. Patient was seen by our veterans rehabilitation counselor. Currently on 40% FiO2, PEEP 12, tidal volume 500 and respiratory rate 14. Patient dropped blood pressure on propofol therapy therefore currently on fentanyl drip only. The patient had seen Dr. Arias ENT for sinusitis and was given antibiotic and cold medication about 2-3 weeks ago. As per the patient's daughter, Ms. Devries and the patient's , she had difficulty in arousal after previous surgeries like hysterectomy and tonsillectomy at age 55 but not to this degree. Vital Signs - 24 hr Temp Pulse Resp BP Pulse Ox 05/13/18 08:57 97.5 F L 78 18 111/66 98 05/13/18 07:00 98 05/13/18 02:14 97.9 F 67 16 148/87 H 99 05/12/18 20:38 98 F 70 16 134/73 H 95 05/12/18 20:30 95 05/12/18 14:27 93 05/12/18 14:24 98.0 F 74 18 125/62 H 93 General: Alert, Oriented x3, Cooperative, No apparent distress HEENT: Atraumatic, EOMI, Normocephalic Oral: Moist Mucosa Neck: Supple, No JVD Lungs: L basilar crackles, Normal air movement, No rhonchi, No wheeze, No rales Cardiovascular: Regular rate, Regular Rhythm, Normal S1, Normal S2, No murmurs Abdomen: Soft, Non Tender, Non-Distended, No Hepato-splenomegaly Extremities: No edema, Capillary Refill Less than 3 Seconds Skin: No rashes, No breakdown, Incision - dressing CDI Neurological: Neuro grossly intact, Sensory exam intact to light touch and pain Psych/Mental Status: Normal Affect, Appropriate Hospital Course: 1. Acute hypoxic respiratory failure secondary to acute pulmonary edema after surgery/Possible aspiration - She presented for outpatient right shoulder surgery and after extubation required to be re-intubated and transferred to the ICU. She was successfully extubated the next day, however initially failed her dysphagia screen, necessitating a speech therapy consults and a swallow study which she passed the day before discharge. Her course was also complicated by continued use of O2 vis NC. CXR prior discharged demonstrated L basilar atelectasis. She continued on her ISS and on the day of discharge she was off oxygen. She passed her ambulatory pulse ox and did not require any home O2. Since there was some possibility of aspiration and she is penicillin allergic, she was discharged on 10 days of levaquin to take if she developed fevers, chills and a cough. 2. Right shoulder arthritis s/p surgery - She is to follow-up with ortho on discharge and take the tylenol for codeine for pain control. 3. Her other diagnoses were evaluated and her home medications were continued where appropriate. Patient Problems: Active and Suspected Problems (Last Updated 08/11/17 @ 14:55 by Clementine Rosales) Acute respiratory failure with hypoxia (Acute) Pulmonary edema (Acute) - Physical Exam Vital Signs Temp Pulse Resp BP Pulse Ox 97.5 F L 78 18 111/66 98 05/13/18 08:57 05/13/18 08:57 05/13/18 08:57 05/13/18 08:57 05/13/18 08:57 Oxygen Flow Rate (L/min) 2 Oxygen Delivery Method Room Air Weight: 149 lb 5 oz Body Mass Index (BMI) 26.6 Intake and Output for Last 24 Hours 05/11/18 05/12/18 05/13/18 23:59 23:59 23:59 Intake Total 282 / 282 0 / 0 800 / 800 Output Total 2225 / 2225 1700 / 1700 900 / 900 Balance -1943 / -1943 -1700 / -1700 -100 / -100 Laboratory Tests Past 24 Hrs 05/13/18 05/13/18 05:22 05:22 WBC 6.8 RBC 4.33 Hgb 10.9 L Hct 35.3 L MCV 81.5 MCH 25.2 L MCHC 30.9 L RDW 15.3 H RDW Differential 45.1 H Plt Count 183 MPV 11.7 Immature Gran % (Auto) 0.300 Neut % (Auto) 79.9 H Lymph % (Auto) 12.6 L [place] % (Auto) 6.7 Eos % (Auto) 0.4 Baso % (Auto) 0.1 Absolute Neuts (auto) 5.4 Absolute Lymphs (auto) 0.86 Total Counted Not Reportable Sodium 139 Potassium 4.2 Chloride 105 Carbon Dioxide 30.0 Anion Gap 4 L BUN 26 H Creatinine 0.88 Estim Creat Clear Calc 52.42 Est GFR (MDRD) Af Amer 83 Est GFR (MDRD) Non-Af 69 BUN/Creatinine Ratio 29.5 H Glucose 108 H Calcium 9.0 Discharge Diet: No Restrictions - may move shoulder and hand as much as tolerated, do not actively flex elbow, remove dressings in 4 days and apply bandaids to incision sites and may get incision wet at that time, follow up in 2 weeks, call with concerns Discharge Activity: May Not Drive May shower in (days): 1 Ice area for (Minutes): 20 - Every hour while awake. Weight Bearing Status: Weight bearing as tolerated Keep extremity elevated above heart level: Operative Extremity Call your doctor if your incision/area has: Continuous Slow Oozing, Sudden Increased Bleeding, Increased Pain/ Swelling, Increased Redness, Foul Smelling Discharge Call your doctor if you observe: Fever of 101 or Higher, Coldness, Increased Pain, Numbness or Tingling, Change in Color, Calf discomfort Home Medications: Medications to take at Discharge ibuprofen 200 mg tablet 200 mg PO DAILY 08/11/17 rosuvastatin 10 mg tablet 20 mg PO DAILY 08/11/17 Acetaminophen/Codeine #3 [Tylenol #3 Tablet] 1 - 2 tablet PO Q6H PRN PRN 5 Days #30 tablet 05/10/18 Zolpidem Tartrate [Ambien (Generic)] 5 mg PO QHS PRN PRN #14 tablet 05/10/18 Sertraline HCl [Zoloft] 100 mg PO DAILY 05/11/18 Levofloxacin [Levaquin] 500 mg PO DAILY #10 tab 05/13/18 Following Prescrptions Were Given to Patient: Acetaminophen/Codeine #3 [Tylenol #3 Tablet] 1 - 2 tablet PO Q6H PRN PRN 5 Days #30 tablet PRN Reason: Pain Levofloxacin [Levaquin] 500 mg PO DAILY #10 tab Zolpidem Tartrate [Ambien (Generic)] 5 mg PO QHS PRN PRN #14 tablet PRN Reason: Insomnia Other Amb Orders: 12 Lead EKG [[facility]] Time Frame: 05/05/18, Location: None Selected Primary Care Physician: Sherita Hendricks MD [Primary Care Provider] - Please follow up with your Primary Care Physician in: in 3-5 days Please Follow Up With: Kateryna Snyder, - [phone] Disposition: Home Minutes spent on discharge:: 35 Patient Condition:: Good Medical Necessity - Tobacco Use Smoking Status: Never smoker Meaningful Use Info Meaningful Use Diagnoses (Choose all that apply): None applicable Code Visit Inpatient E&M: 56258 Disch Hosp
[2018-05-13 09:30] VITALS: O2SAT 97
[2018-05-13 09:56] VITALS: O2SAT 95; O2SAT 97
[2018-05-13] MEDS: Acetaminophen/Codeine #3 Tablet 1 TABLET PO (10:00)
== END 2018-05-13 11:26 | disposition home or self-care (01) | DRG 166 ==
LOC: SDC 16:26 → ICU 05-11 07:29 → MS2 05-12 07:01
PROVIDERS: Internal Medicine Critical Care Medicine; Admitting Provider Internal Medicine; Family Provider Family Medicine; PCP Family Medicine; Referring Provider Orthopaedic Surgery; Visit Provider Family Medicine
PROC: 0RNJ4ZZ Release Right Shoulder Joint, Percutaneous Endoscopic Approach (ICD-10-PCS; CPT 29827; principal; 2018-05-10 10:10)
DX: J96.01 Acute respiratory failure with hypoxia (principal); J81.0 Acute pulmonary edema; M19.011 Primary osteoarthritis, right shoulder; M75.41 Impingement syndrome of right shoulder; M25.572 Pain in left ankle and joints of left foot; E78.5 Hyperlipidemia, unspecified; F32.9 Major depressive disorder, single episode, unspecified; Z23 Encounter for immunization
CPT/HCPCS: 36415; 36600; 71045; 71046; 74230; 80048; 82550; 82803; 83735; 83880; 84100; 84478; 84484; 85025; 85027; 87641; 88304; 92526; 92611; 93005; 93306; 94002; 94003; 94660; 95831; 97161; 97165; 97530; J7120; Q9957; 90686; A4216; C8929; J1940; J2310; J2405

== ENCOUNTER → 2018-07-30 08:40 | Outpatient (CLI) | payer OTHER, SELFPAY ==
[2018-06-18 08:07] VITALS: BMI 26.6
--- NOTE | 2018-07-30 08:42 | RAD_ITS ---
STUDY: X-RAY - RIGHT WRIST REASON FOR EXAM: Female, 62 years old. Pain of the right wrist TECHNIQUE: 3 view(s) of the wrist were obtained. COMPARISON: None. FINDINGS: There is mild diffuse osteopenia. Normal radiocarpal articulation. Normal distal radioulnar articulation. Normal carpal bones. Normal carpal articulations. Normal carpometacarpal articulation of the thumb. Normal second through fifth carpometacarpal articulations. Normal visualized metacarpal bones. The soft tissue structures are unremarkable. RAD/Wrist min 3 Views IMPRESSION: No fracture, malalignment or erosive process. Mild osteopenia. Electronically Signed: Enrico Yuen MD at 18:17 EST , Service support ,
== END ==
PROVIDERS: Family Provider Family Medicine; PCP Family Medicine; Referring Provider Physician Assistant; Visit Provider Physician Assistant
DX: M25.531 Pain in right wrist (principal)
CPT/HCPCS: 73110

== ENCOUNTER 2018-09-16 16:30 | Outpatient (RCR) | payer OTHER, SELFPAY ==
[2018-05-25 09:06] VITALS: BMI 26.6
--- NOTE | 2018-05-31 07:58 | HP.PTEVAL ---
Patient's Visit Information PEE FISH is a 62 year old F referred to Physical Therapy by Kateryna Snyder DO with a diagnosis of R shoulder surgery 05/10 biceps tenodesis and shoulder debridement.. Date of Evaluation: 05/31/18 Physical Therapist: Shravan De La Cruz, DPT, OCS, CSCS - Visit Plan Frequency: 3x /Week Duration: 2 Months Plan: 3x/week for 3 weeks then 2-3x/week for 5-6 weeks... Start with PROM R elbow flexion(not allowed AROM), AAROM R shoulder to AROM, educate management of condition. Ice as needed. PROM. Scar massage. After June 18 appointment may progress to AROM elbow(as allowed). Strength shoulder isometric at first, no biceps strength. - Subjective Findings: Had small R RCT but mostly OA and bursitis and she cleaned it out She also moved biuceps tendon. Was hurting for months to years prior. Surgery was 05/11/18. Been feeling pretty good. Surgery was well but complications with tube in throat after surgery and lungs filled with fluid, tube went back in. Shoulder itself feels OK, biceps soreness is there when she tries to nmove at all like with HEP. Pendulums and A/PROM abduction. Sling since surgery and sleeping in it and will for 6 weeks. Sleep is OK, not perfect due to sling. Needs help to dress. 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 Sees doctor June 18. Basic ADLs are very limited to using L hand. Hobbies when healthy include walking, time with grandkids(8 yo and younger to 4 yo) - Pain R biceps Pain Intensity (Out of 10): 0 Pain Intensity Range: 0, 3 Comment: compfy at rest - Objective R scap elevated. and protected. Forward head and protracted scap posture. Sling on and doffs I but needs VC to don. wrist and hand AROM WNL. Passive elbow flexion R with discomfort at end range but near full, extension is full actively. R shoulder AROM ext rot25 degrees, AAROM flexion and abd 85 degrees. PROM 90 flexion. IR at 80 abd 45. Pt has hard time relaxing and tends to elevate scapula. Incision have healed well and only slight scar tissue palpable. No signs of redness heat or swelling. Precautions taught to patient today with no aROM elbow until 6 week dameon per script. L shoulder, elbow wrist AROM WFL and strength at 4/5 - Goals Goal 1:: AROM R shoulder to 150 flexion and abduction without pain and 80 ext rotation, PROM R elbow flexion full and painfree. Goal Time Frame: 2-4 Weeks Goal 2:: Sleep without waking due to pain Goal Time Frame: 2-4 Weeks Goal 3:: Patient have full aROM as allowed by restriction in R UE to faciltate ADLS Goal Time Frame: 6-8 Weeks Goal 4:: Plan to return to work Goal Time Frame: 4-6 Weeks Goal 5:: Pt feel 90% back to normal in R shoulder Goal Time Frame: 6-8 Weeks - Rehabilitation Potential Physical Therapy Diagnosis: s/p R shoulder surgery 05/10 Rehabilitation Potential: Good - Anticipated Interventions Patient/Client Instruction: Educate patient on: Condition, Plan of Care For the Purpose of:: To decrease pain, To increase ROM, To increase tolerance to activity/condition/position Therapeutic Exercise to Include: Strength training, Postural training, Flexibilty training, Passive ROM, Active ROM For the Purpose of:: To decrease pain, To increase ROM, To increase tolerance to activity/condition/position, To improve ability of physical actions for home/community/work/leisure Manual Therapy Techniques to Include: Scar massage, Mobilization, Passive ROM For the Purpose of:: To increase ROM, To improve nutrient delivery to tissue Cryotherapy (ice pack, ice massage): Yes For the Purpose of:: To decrease swelling/inflammation Thank you for the opportunity to evaluate your patient. For Medicare and Medicare HMO plans, please review the plan of care and approve it. It will need to be FAXED BACK to us at [phone] for Medicare purposes. For Medicare only, by signing this I certify the plan of care. Please let me know if there are questions or concerns regarding this plan of care. Physician Signature: Date:
--- NOTE | 2018-06-18 09:51 | HP.PTREVAL ---
Kateryna Snyder, DO, It has been my pleasure to treat PEE FISH over the last 8 visits for R shoulder surgery 05/10 biceps tenodesis and shoulder debridement.. Please see the progress note below for an update on the physical therapy plan of care! Subjective: Doctor was happy and is to get sling off now. Comfortable at rest. Pain each day 0-06/24. Sleep with sling was tough, looking forward to sleeping without it. Still should not lift yet. Objective/Function: 90 flexion. 35 abd. 40 ext rotation. IR to seam. AAROM. to 140 flexion and 130 abd and 80 ext rotation. Needs encouragement to push end range a little buit and still very weak with elevation and hesitant. OVERALL DOING WELL AND APPROP FOR CONTINUED PT with good prognosis. Plan Plan: 2-3x/week for 4 weeks for : Continue aAROM to aROM adding IR and abd to current HEP and progressing to standing adn eventual AROM. Ensure end range. May start isometric strength and PRE 07/04 if doing well. Goals Goal 1:: AROM R shoulder to 150 flexion and abduction without pain and 80 ext rotation, PROM R elbow flexion full and painfree. Goal Time Frame: 2-4 Weeks Goal Progress: Progressing Goal 2:: Sleep without waking due to pain Goal Time Frame: 2-4 Weeks Goal Progress: not yet. Goal 3:: Patient have full aROM as allowed by restriction in R UE to faciltate ADLS Goal Time Frame: 6-8 Weeks Goal 4:: Plan to return to work Goal Time Frame: 4-6 Weeks Goal Progress: in two weeks Goal 5:: Pt feel 90% back to normal in R shoulder Goal Time Frame: 6-8 Weeks Anticipated Interventions Patient/Client Instruction: Educate patient on: Condition, Plan of Care For the Purpose of:: To decrease pain, To increase ROM, To increase tolerance to activity/condition/position Therapeutic Exercise to Include: Strength training, Postural training, Flexibilty training, Passive ROM, Active ROM For the Purpose of:: To decrease pain, To increase ROM, To increase tolerance to activity/condition/position, To improve ability of physical actions for home/community/work/leisure Manual Therapy Techniques to Include: Scar massage, Mobilization, Passive ROM For the Purpose of:: To increase ROM, To improve nutrient delivery to tissue Cryotherapy (ice pack, ice massage): Yes For the Purpose of:: To decrease swelling/inflammation Please do not hesitate to contact me at [phone] by phone or if you have questions or concerns regarding this new plan of care! Sincerely, Shravan De La Cruz, DPT, OCS, CSCS
--- NOTE | 2018-07-30 07:31 | HP.PTREVAL ---
Kateryna Snyder, DO, It has been my pleasure to treat PEE FISH over the last 17 visits for R shoulder surgery 05/10 biceps tenodesis and shoulder debridement.. Please see the progress note below for an update on the physical therapy plan of care! Subjective: Doing exercises at home regularly. Wall flexion stretch had to slow down due to UT pain. Carries stress in posterior shoulder and this may be part of it. Bicep hurts a little bit and will back off bicep curl. Work is going OK, achy sometimes after work last week but better this week. Activities at home are pretty normal. 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 Objective/Function: 140 degrees flexion and abduction with pain posterior inferior shoulder, very tender over infraspinatus and teres minor. Stretching these increase ROM to 145 degrees quickly. rotation ROM are good and near symmetrical. Strength is 4/5 flexiona dn abduction with some posterior pain, rotations are 4 on R and 4+ L without discomfort. OVERALL DOING WELL, STIFF IN ELEVATION AND TENDER POSTERIOR RC MUSCLES MORE THAN I WOULD EXPECT. TOLERATING HOME ACTIVITIY WELL Plan Plan: RECOMMEND 2X/WEEK FOR 2-3 WEEKS TO WORK US THERMAL AND STM TO INFRASPINATUS AND TERES MINOR MM BELLIES, MONITOR CONTINUED IMPROVEMENT TO ELEVATIONA DN STRENGTH TO PROGRESS HEP, PT TO CONTINUE STRENGTHENING AND STRETCHING AT HOME I. GOALS OF 90% IMPROVEMENT AND OH ROM STILL APPRORPIATE ADN GOOD PROGNOSIS WITH NEW POC. Goals Goal 1:: AROM R shoulder to 150 flexion and abduction without pain and 80 ext rotation, PROM R elbow flexion full and painfree. Goal Time Frame: 2-4 Weeks Goal Progress: Progressing Goal 2:: Sleep without waking due to pain Goal Time Frame: 2-4 Weeks Goal Progress: Goal Met Goal 3:: Patient have full aROM as allowed by restriction in R UE to faciltate ADLS Goal Time Frame: 6-8 Weeks Goal Progress: Goal Met Goal 4:: Plan to return to work Goal Time Frame: 4-6 Weeks Goal Progress: Goal Met Goal 5:: Pt feel 90% back to normal in R shoulder Goal Time Frame: 6-8 Weeks Goal Progress: Progressing Anticipated Interventions Patient/Client Instruction: Educate patient on: Condition, Plan of Care For the Purpose of:: To decrease pain, To increase ROM, To increase tolerance to activity/condition/position Therapeutic Exercise to Include: Strength training, Postural training, Flexibilty training, Passive ROM, Active ROM For the Purpose of:: To decrease pain, To increase ROM, To increase tolerance to activity/condition/position, To improve ability of physical actions for home/community/work/leisure Manual Therapy Techniques to Include: Scar massage, Mobilization, Passive ROM, Soft tissue mobilization For the Purpose of:: To increase ROM, To improve nutrient delivery to tissue Cryotherapy (ice pack, ice massage): Yes Ultrasound (thermal/non thermal): Yes - THERMAL POSTERIOR RC MUSCLES BELLY For the Purpose of:: To decrease swelling/inflammation Please do not hesitate to contact me at [phone] by phone or if you have questions or concerns regarding this new plan of care! Sincerely, Shravan De La Cruz, DPT, OCS, CSCS
--- NOTE | 2018-09-16 16:54 | HP.PTDCSUM ---
HP - PT D/C Summary It has been my pleasure to treat PEE FISH under orders from Kateryna Snyder DO, for the diagnosis of R shoulder surgery 05/10 biceps tenodesis and shoulder debridement. for a total of 23 visit(s). Discharge Date: 09/16/18 Please see the following information for a summary of their discharge status. - Subjective Subjective: Been good. Doing exercises regluarly. Goes 3-4 days without hurting often. Sometimes hurts again then for a day or two then good, seemingly without pattern. No doctor visit until October. Sleeping well. work is OK. Home life is mostly normal. - Pain R biceps Pain Intensity (Out of 10): 0 - Overall Improvement % Improvement: 90 - Objective Objective/Function: 153 AROM flexiona dn 148 abd, 80 ext rotation adn l4 IR. Strength is near symmetrical in IR, ER, bi and tri and 4/5 flexion abd R vs 4+ L. No pain and moving well. - Goals Goal 1:: AROM R shoulder to 150 flexion and abduction without pain and 80 ext rotation, PROM R elbow flexion full and painfree. Goal Progress: Goal Met Goal 2:: Sleep without waking due to pain Goal Progress: Goal Met Goal 3:: Patient have full aROM as allowed by restriction in R UE to faciltate ADLS Goal Progress: Goal Met Goal 4:: Plan to return to work Goal Progress: Goal Met Goal 5:: Pt feel 90% back to normal in R shoulder Goal Progress: Goal Met - Plan Plan: D/C - D/C Information Discharge Comments: Doing well. I with HEp and activities normal. Will continue strength adn ROM and f/u with doctor end October as scheduled. If there are questions or concerns regarding this patient's physical therapy, please feel free to call me at [phone]. Thank you for the referral of this patient. Sincerely, Shravan De La Cruz, DPT, OCS, CSCS
== END 2018-09-16 19:00 | disposition home or self-care (01) ==
LOC: PT 16:30
PROVIDERS: Family Provider Family Medicine; PCP Family Medicine; Referring Provider Orthopaedic Surgery; Visit Provider Orthopaedic Surgery
DX: Z98.890 Other specified postprocedural states (principal); M75.21 Bicipital tendinitis, right shoulder
CPT/HCPCS: 97035; 97110; 97140; 97162; 97530

== ENCOUNTER → 2018-11-02 15:24 | Outpatient (CLI) | payer OTHER, SELFPAY ==
[2018-07-30 09:20] VITALS: BMI 26.6
--- NOTE | 2018-11-02 15:29 | RAD_ITS ---
STUDY: X-RAY - LEFT SHOULDER REASON FOR EXAM: Female, 62 years old. Pain. TECHNIQUE: 5 view(s) of the shoulder. COMPARISON: None. FINDINGS: There is mild arthrosis of the glenohumeral joint. There is mild arthrosis of the acromioclavicular joint. Normal acromion. Normal humeral head and visualized proximal humerus. The soft tissue structures are unremarkable. Normal visualized pulmonary apex. RAD/Shoulder min 2 Views IMPRESSION: Mild arthrosis of the glenohumeral and acromioclavicular joints. Electronically Signed: Prasad Mccray MD at 17:52 EDT , Service support ,
== END ==
PROVIDERS: Family Provider Family Medicine; PCP Family Medicine; Referring Provider Orthopaedic Surgery; Visit Provider Orthopaedic Surgery
DX: M25.512 Pain in left shoulder (principal)
CPT/HCPCS: 73030

== ENCOUNTER → 2018-11-29 15:25 | Outpatient (CLI) | payer OTHER, SELFPAY ==
[2018-07-30 09:20] VITALS: BMI 26.6
== END ==
PROVIDERS: Family Provider Family Medicine; PCP Family Medicine; Referring Provider Family Medicine; Visit Provider Family Medicine
DX: R35.0 Frequency of micturition (principal)
CPT/HCPCS: 87086

== ENCOUNTER 2019-01-13 12:00 | Outpatient (RCR) | payer OTHER, SELFPAY ==
[2019-01-06 09:09] VITALS: BMI 26.6
--- NOTE | 2019-01-06 11:15 | HP.PTEVAL_ITS ---
Patient's Visit Information PEE FISH is a 63 year old F referred to Physical Therapy by Kateryna Snyder DO with a diagnosis of L shoulder pain. Date of Evaluation: 01/06/19 Physical Therapist: Ludin Templeton, PT, ATC - Visit Plan Frequency: 1x/Week Duration: 1 Week Plan: Instruct and issue HEP of L shoulder tor cuff strengthening and scap stab ex's - Subjective Findings: Pt reports she has had L shoulder pain for about 3 months. Pt reports she had xrays and an injection at that time which helped for about 6 weeks, but the pain has returned and she is sore. Xrays revealed OA. Pt reports she had her R rot cuff repaired last April. Pt reports she might need an MRI but has to perform PT prior to getting approval for that. Pt reports her pain is on the superior and posterior aspects of her L shoulder. Pt is L hand dominant. No tingling or numbness in L UE. No sleep difficulty secondary to pain. Pt reports her pain is intermittent in nature. Pt reports her shoulder pops and catches when she attempts to reach overhead. L shoulder pain is 1/10 at rest, 4/10 at worst (no known cause) - Pain L shoulder Pain Intensity (Out of 10): 0 Pain Intensity Range: 4 - Objective Neuro: B UE sensation is WNL to light touch. B bicepital reflex= 2/3. Palpation: Pt is tender along the distribution of the supraspinatus muscle. ROM: R shoulder flex= 145, abd= 145, ER= 80, IR WNL; L shoulder flex= 160, abd= 150, ER= 70, IR WNL. MMT: L shulder abd and ER 4-/5. All other meausrements B shoulders 4+/5 throughout. Special tests: pos empty can and HK test - Goals Goal 1:: I with HEP Goal Time Frame: 1 Week - Rehabilitation Potential Physical Therapy Diagnosis: Pt has L shoulder pain secondary to rotator cuff weakness Rehabilitation Potential: Good - Anticipated Interventions Patient/Client Instruction: Educate patient on: Condition, Plan of Care For the Purpose of:: To improve self management Therapeutic Exercise to Include: Strength training, Scapular Strength/Stabilization For the Purpose of:: To decrease pain, To improve muscle performance and motor function Cryotherapy (ice pack, ice massage): Yes For the Purpose of:: To decrease pain Thank you for the opportunity to evaluate your patient. For Medicare and Medicare HMO plans, please review the plan of care and approve it. It will need to be FAXED BACK to us at [phone] for Medicare purposes. For Medicare only, by signing this I certify the plan of care. Please let me know if there are questions or concerns regarding this plan of care. Physician Signature: Date:
--- NOTE | 2019-01-13 12:35 | HP.PTDCSUM ---
HP - PT D/C Summary It has been my pleasure to treat PEE FISH under orders from Kateryna Snyder DO, for the diagnosis of L shoulder pain for a total of 2 visit(s). Discharge Date: Please see the following information for a summary of their discharge status. - Subjective Subjective: No pain this date - Pain L shoulder Pain Intensity (Out of 10): 0 - Overall Improvement % Improvement: 100 - Objective Objective/Function: Pt is now I with HEP. Rx goals achieved - Goals Goal 1:: I with HEP - Plan Plan: Discharge - D/C Information If there are questions or concerns regarding this patient's physical therapy, please feel free to call me at [phone]. Thank you for the referral of this patient. Sincerely, Ludin Templeton, PT, ATC
== END 2019-01-13 14:03 | disposition home or self-care (01) ==
LOC: PT 12:00
PROVIDERS: Family Provider Family Medicine; PCP Family Medicine; Referring Provider Orthopaedic Surgery; Visit Provider Orthopaedic Surgery
DX: M25.512 Pain in left shoulder (principal); M25.812 Other specified joint disorders, left shoulder; R29.898 Other symptoms and signs involving the musculoskeletal system
CPT/HCPCS: 97110; 97161

== ENCOUNTER → 2019-01-18 14:35 | Outpatient (CLI) | payer OTHER, SELFPAY ==
[2019-01-06 09:09] VITALS: BMI 26.6
[2019-01-18 15:45] LABS: Absolute Lymphocyte Count 1.22 X10^3/uL (0.83-4.51); Absolute Neutrophil Count 4.6 X10^3/uL (2.0-7.7); Basophil# 0.02 X10^3/uL; Basophil% 0.3 % (0-1); Eosinophil# 0.08 X10^3/uL; Eosinophils% 1.2 % (0-5); Hematocrit 38.7 % (37-47); Hemoglobin 12.2 g/dL (12.0-15.0); Lymphocyte # 1.22 X10^3/ul (4.0); Lymphocyte % 18.9 % (19-41); Mean Corp Hgb Conc 31.5 g/dL (32-36); Mean Corpuscular Hgb 25.7 pg (27.0-32.0); Mean Corpuscular Volume 81.5 fL (81-99); Mean Platelet Vol. 11.5 fl (6.2-12.0); Monocyte# 0.53 X10^3/uL; Monocyte% 8.2 % (0-10); NRBC Flagged by Analyzer 0 % (0-5); Neutrophil # 4.57 X10^3/uL (2.7-7.7); Neutrophil % 71.1 % (47-70); Platelet Count 212 K/mm3 (150-450); RBC Distribution Width CV 15.7 % (11.6-14.6); RBC Distribution Width SD 46.7 fl (35.1-43.9); Red Blood Count 4.75 M/mm3 (4.2-5.4); White Blood Count 6.4 K/mm3 (4.4-11.0)
[2019-01-18 15:59] LABS: AST(SGOT) 26 U/L (15-37); Alanine Aminotransfer ALT/SGPT 29 U/L (13-56); Cholesterol 194 mg/dL (200); High Density Lipoprotein 59 mg/dL; Triglycerides 152 mg/dL; Very Low Density Lipoprotein 30 mg/dL (5-40)
== END ==
PROVIDERS: Family Provider Family Medicine; PCP Family Medicine; Referring Provider Family Medicine; Visit Provider Family Medicine
DX: E78.00 Pure hypercholesterolemia, unspecified (principal); T14.8XXA Other injury of unspecified body region, initial encounter
CPT/HCPCS: 36415; 80061; 84450; 84460; 85025

== ENCOUNTER 2019-01-21 09:25 | Emergency (ER) | payer OTHER, SELFPAY ==
[2019-01-06 09:09] VITALS: BMI 26.6
[2019-01-21 09:26] VITALS: BP 158/87; PULSE 73; RESP 17; TEMP 36.7; O2SAT 99; BMI 27.5
--- NOTE | 2019-01-21 09:56 | CT_ITS ---
STUDY: CT ABDOMEN AND PELVIS WITH CONTRAST REASON FOR EXAM: Female, 63 years old. History of fall. RADIATION DOSAGE (If Supplied By Facility): CTDIvol = ( 18 ) mGy, DLP = ( 1500.76 ) mGycm TECHNIQUE: Transaxial images were obtained from the dome of the diaphragm to the symphysis pubis without oral contrast. 100ML IV Isovue 300 was administered. Sagittal and coronal images were reconstructed. Individualized dose optimization techniques were used for this CT. COMPARISON: None. FINDINGS: Mild degree of increased markings at the lung bases suggestive of atelectasis. The visualized portions of the heart are within normal limits. There is a 2.6 x 2.2 cm cyst in the anterior mid right lobe of the liver. Normal gallbladder and extrahepatic biliary system. Normal spleen. Normal pancreas. Normal bilateral adrenal glands. Normal right kidney. Normal left kidney. There is a small hiatal hernia. Normal small intestine. There are multiple colonic diverticula consistent with diverticulosis. There are surgical clips in the region of the appendix consistent with a prior appendectomy. Normal abdominal aorta. Normal inferior vena cava. Normal retroperitoneum. Normal urinary bladder. There is absence of the uterus consistent with a prior hysterectomy. Normal abdominal wall. Disc space narrowing and degeneration at the L4-L5 level. 10% loss of height of the superior endplate of the T12 vertebrae. CT/Abdomen/Pelvis WITH Contrast IMPRESSION: Cyst in the right lobe of the liver. Minimal loss of height of the superior endplate of the T12 vertebrae. Electronically Signed: Stef Youngblood, at 11:44 EDT , Service support ,
--- NOTE | 2019-01-21 09:56 | RAD_ITS ---
STUDY: X-RAY - LEFT WRIST REASON FOR EXAM: Female, 63 years old. TECHNIQUE: 3 view(s) of the wrist were obtained. COMPARISON: None. FINDINGS: Normal visualized distal radius and ulna. Normal radiocarpal articulation. Normal distal radioulnar articulation. Normal carpal bones. Normal carpal articulations. Normal carpometacarpal articulation of the thumb. Normal second through fifth carpometacarpal articulations. Normal visualized metacarpal bones. The soft tissue structures are unremarkable. RAD/Wrist min 3 Views IMPRESSION: Normal x-ray examination of the wrist. Electronically Signed: Stef Youngblood, at 11:49 EDT , Service support ,
--- NOTE | 2019-01-21 09:56 | CT_ITS ---
STUDY: CT CERVICAL SPINE WITHOUT CONTRAST REASON FOR EXAM: Female, 63 years old. History of fall. RADIATION DOSAGE (If Supplied By Facility): CTDIvol = ( 10.97 ) mGy, DLP = ( 220.08 ) mGycm TECHNIQUE: High resolution transaxial imaging was performed without contrast material. Sagittal and coronal images were reconstructed. Individualized dose optimization techniques were used for this CT. COMPARISON: None FINDINGS: Normal craniovertebral junction. There are degenerative changes of the anterior atlantoaxial articulation. Normal odontoid process. Normal cervical lordosis. Normal vertebral bodies and posterior osseous elements. C2-3: Normal endplates. Normal disc height and morphology. Normal central canal and intervertebral neuroforamina. C3-4: Normal endplates. Normal disc height and morphology. Normal central canal and intervertebral neuroforamina. C4-5: Facet joint osteoarthritis and hypertrophy. Mild uncovertebral arthrosis. C5-6: Mild degree of disc space narrowing. Uncovertebral arthrosis and facet joint hypertrophy. No significant stenosis is seen. C6-7: Moderate degree of disc space narrowing and spondylosis. Facet joint osteoarthritis and hypertrophy. No significant stenosis. C7-T1: Normal endplates. Normal disc height and morphology. Normal central canal and intervertebral neuroforamina. Normal visualized soft tissue structures. CT/Spine Cervical without Contras IMPRESSION: Multilevel degenerative changes, as described above. Electronically Signed: Stef Youngblood, at 11:47 EDT , Service support ,
--- NOTE | 2019-01-21 09:56 | RAD_ITS ---
STUDY: X-RAY - LEFT ELBOW REASON FOR EXAM: Female, 63 years old. History of fall. TECHNIQUE: 3 view(s) of the elbow. COMPARISON: None. FINDINGS: Normal visualized humerus, radius and ulna. Normal radiocapitellar and ulnotrochlear articulations. The soft tissue structures are unremarkable. RAD/Elbow min 3 Views IMPRESSION: Normal x-ray examination of the elbow. Electronically Signed: Stef Youngblood, at 11:48 EDT , Service support ,
--- NOTE | 2019-01-21 09:56 | CT_ITS ---
STUDY: CT FACIAL BONES WITHOUT CONTRAST REASON FOR EXAM: Female, 63 years old. History of fall. RADIATION DOSAGE (If Supplied By Facility): CTDIvol = ( 29.38 ) mGy, DLP = ( 488.69 ) mGycm TECHNIQUE: The patient was scanned in a multi detector CT scanner. Sagittal and coronal images were reconstructed. Individualized dose optimization techniques were used for this CT. COMPARISON: None. FINDINGS: Normal soft tissue structures. Normal orbital armando and orbital contents. Normal nasal bones and anterior nasal spine. Normal facial bones. There is no demonstrated fracture. Normal visualized paranasal sinuses. CT/Sinus/Facial Bone IMPRESSION: Normal unenhanced CT of the facial bones. Electronically Signed: Stef Youngblood, at 11:49 EDT , Service support ,
--- NOTE | 2019-01-21 09:56 | CT_ITS ---
STUDY: CT CHEST WITH CONTRAST REASON FOR EXAM: Female, 63 years old. History of fall. RADIATION DOSAGE (If Supplied By Facility): CTDIvol = ( 18.82 ) mGy, DLP = ( 1500.76 ) mGycm TECHNIQUE: Transaxial imaging was performed following intravenous administration of 100ML IV Isovue 300. Multiplanar coronal and sagittal images were reformatted. Individualized dose optimization techniques were used for this CT. COMPARISON: None. FINDINGS: Mild increased markings at the lung bases suggestive of bibasilar atelectasis and/or scarring. There is no demonstrated pleural abnormality. Normal heart and pericardium. Normal mediastinum. Normal hilar regions. Normal enhanced pulmonary arteries. Normal aorta arch and descending thoracic aorta. Minimal loss of height of the superior endplate of the T12 vertebrae. There is no demonstrated abnormality of the visualized upper abdomen. CT/Chest WITH Contrast IMPRESSION: Mild increased markings at the lung bases suggestive of atelectasis and/or scarring. Electronically Signed: Stef Youngblood, at 11:46 EDT , Service support ,
--- NOTE | 2019-01-21 09:56 | CT_ITS ---
STUDY: CT BRAIN WITHOUT CONTRAST REASON FOR EXAM: Female, 63 years old. History of fall. RADIATION DOSAGE (If Supplied By Facility): CTDIvol = ( 44.99 ) mGy, DLP = ( 728.62 ) mGycm TECHNIQUE: Transaxial CT imaging of the brain was performed without administration of intravenous contrast material. Individualized dose optimization techniques were used for this CT. COMPARISON: No relevant priors. FINDINGS: Normal soft tissue structures. Normal calvarium. Normal size ventricles and extra-axial spaces for the patient's age. Normal white matter tracts of the cerebral hemispheres. Normal basal ganglia and thalami. Normal brainstem. Normal cerebellum. There is no intracranial hemorrhage. There are no findings of an acute ischemic infarction. Normal visualized paranasal sinuses. CT/Brain/Head without Contrast IMPRESSION: Normal unenhanced CT scan of the brain. Electronically Signed: Stef Youngblood, at 11:48 EDT , Service support ,
--- NOTE | 2019-01-21 09:59 | ED.VISSUMM ---
- ER Visit Summary Date of Service: 01/21/19 Chief Complaint: Fall History of Present Illness: The patient is a 63 F presenting after mechanical fall. Patient was getting the paper out of her mailbox. She tripped over her dog's leash. She fell hitting her head. She did not lose consciousness. She is not on anticoagulants. She complains of bilateral wrist pain, left rib pain. She was able to ambulate after the fall. Last tetanus is unknown. Physical Examination: Vitals are stable. Patient is afebrile. Alert no acute distress. HEENT exam abrasion lateral to left eye, PERRL, EOMI Neck is mild diffuse tenderness no step-off Lungs are clear and equal bilaterally. Left lower chest tender to palpation Heart is regular rate and rhythm. Abdomen is soft nontender nondistended. Extremities bilateral wrist, left elbow tenderness, painful range of motion. Left knee abrasion with active full range of motion Skin is warm and dry. No focal neurologic deficit. Remainder of exam is unremarkable. Emergency Department Course and Treatment: Patient is given tetanus IM. She was given morphine, Zofran IV. CT head and neck show no acute process. CT facial bones shows no acute process. CT chest, abdomen, pelvis shows cyst in the right lobe of the liver. Minimal loss of height of the superior endplate of the T12 vertebrae. Bilateral wrist x-rays show no acute process. Left elbow x-ray shows no acute process. Patient is given an incentive spirometer. She is given a Velcro wrist splints. She is given short course of Percocet. Advised to follow-up with her primary care physician. Advised return to ED for worsening complaints. Disposition: Discharge home Impression: Status post mechanical fall, chest wall contusion, bilateral wrist sprain, closed head injury This note was generated with [employer] dictation software. It may contain incorrect words, spelling, and punctuation that were not noted in review of the chart prior to signing ED Disposition - Plan for ED Patient: Instructions: FALL, Mechanical Prescriptions: Oxycodone HCl/Acetaminophen [Percocet 5/325] 1 tab PO Q6H PRN PRN 3 Days #8 tab PRN Reason: Pain Prescription Printed Referrals: Sherita Hendricks MD [Primary Care Provider] -
[2019-01-21] MEDS: Diphth,Pertuss(Acell),Tet Vac 0.5 ML Vial IM (10:40)
[2019-01-21] MEDS: Morphine 4 MG/ML Syringe IV (10:41)
[2019-01-21] MEDS: Ondansetron 4 MG/2 ML Vial IV (10:41)
--- NOTE | 2019-01-21 11:09 | RAD_ITS ---
STUDY: X-RAY - RIGHT WRIST REASON FOR EXAM: Female, 63 years old. History of fall. TECHNIQUE: 3 view(s) of the wrist were obtained. COMPARISON: None. FINDINGS: Normal visualized distal radius and ulna. Normal radiocarpal articulation. Normal distal radioulnar articulation. Normal carpal bones. Normal carpal articulations. Normal carpometacarpal articulation of the thumb. Normal second through fifth carpometacarpal articulations. Normal visualized metacarpal bones. The soft tissue structures are unremarkable. RAD/Wrist min 3 Views IMPRESSION: Normal x-ray examination of the wrist. Electronically Signed: Stef Youngblood, at 11:49 EDT , Service support ,
--- NOTE | 2019-01-21 12:06 | ED.DEP ---
ED Disposition - Plan for ED Patient: Instructions: FALL, Mechanical Prescriptions: Oxycodone HCl/Acetaminophen [Percocet 5/325] 1 tablet PO Q6H PRN PRN 3 Days #8 tablet PRN Reason: Pain Referrals: Sherita Hendricks MD [Primary Care Provider] -
== END 2019-01-21 12:30 | disposition home or self-care (01) ==
LOC: ED 10:05
PROVIDERS: Emergency Provider Emergency Medicine; Family Provider Family Medicine; PCP Family Medicine
DX: S09.90XA Unspecified injury of head, initial encounter (principal); S20.211A Contusion of right front wall of thorax, initial encounter; S20.212A Contusion of left front wall of thorax, initial encounter; S63.501A Unspecified sprain of right wrist, initial encounter; S80.212A Abrasion, left knee, initial encounter; S00.212A Abrasion of left eyelid and periocular area, initial encounter; W01.0XXA Fall on same level from slipping, tripping and stumbling without subsequent striking against object, initial encounter; K76.89 Other specified diseases of liver; E78.00 Pure hypercholesterolemia, unspecified; K21.9 Gastro-esophageal reflux disease without esophagitis; F41.9 Anxiety disorder, unspecified
CPT/HCPCS: 70450; 70486; 71260; 72125; 73080; 73110; 74177; 90715; 96374; 96375; 99284; J7030; Q9967; A4216; J2405

== ENCOUNTER → 2019-02-17 15:27 | Outpatient (CLI) | payer OTHER, SELFPAY ==
[2019-01-06 09:09] VITALS: BMI 26.6
[2019-02-08 14:45] VITALS: BMI 27.5
--- NOTE | 2019-02-17 15:29 | BI_ITS ---
MAMMOGRAPHY - BILATERAL SCREENING REASON FOR EXAM: Female, 63 years old. Routine annual screening examination. PERTINENT HISTORY: Non-contributory. TECHNIQUE: Digital bilateral breast juan carlos (3D mammographic acquisition) in the CC and MLO projections. 2-D mediolateral oblique (MLO) and craniocaudad (CC) views of both breasts were obtained. CAD: Full Field Digital Mammography with Computer Added Detection was performed. COMPARISON: Comparison is made with prior study dated January 01, 2018. FINDINGS: Breast Composition: The breasts are almost entirely fatty. There are no dominant masses or suspicious calcifications. No other significant abnormalities are identified. There has been no significant change since the prior study. BI/SCREEN MAMM (CAD) W/JUAN CARLOS BILAT IMPRESSION: Stable bilateral screening mammogram. Yearly follow-up mammogram recommended. (A) ASSESSMENT CATEGORY: BIRADS Category 1: Negative. A letter regarding these results will be sent to the patient by the facility within 30 days. Approximately 10% of breast cancers are not detected by mammography. A normal mammogram should not delay biopsy of a clinically suspicious abnormality. [id number] Electronically Signed: Stef Youngblood, at 8:02 EDT , Service support ,
== END ==
PROVIDERS: Family Provider Family Medicine; PCP Family Medicine; Referring Provider Family Medicine; Visit Provider Family Medicine
DX: Z12.31 Encounter for screening mammogram for malignant neoplasm of breast (principal)
CPT/HCPCS: 77063; 77067

== ENCOUNTER → 2019-03-04 08:32 | Outpatient (CLI) | payer OTHER, SELFPAY ==
[2019-03-04 08:06] VITALS: BMI 27.5
--- NOTE | 2019-03-04 08:33 | RAD_ITS ---
STUDY: X-RAY - RIGHT WRIST REASON FOR EXAM: Medial wrist pain, fall 6 weeks ago. TECHNIQUE: 3 view(s) of the wrist were obtained. COMPARISON: Radiographs 01/21/2019. FINDINGS: There is osteopenia. Normal visualized distal radius and ulna. Normal radiocarpal articulation. Normal distal radioulnar articulation. Normal carpal bones. Normal carpal articulations. Normal carpometacarpal articulation of the thumb. Normal second through fifth carpometacarpal articulations. Normal visualized metacarpal bones. The soft tissue structures are unremarkable. RAD/Wrist min 3 Views IMPRESSION: Osteopenia. Otherwise, unremarkable x-ray examination of the right wrist. Electronically Signed: Jose Francisco Casey MD at 15:26 EDT Tel , Service support ,
== END ==
PROVIDERS: Family Provider Family Medicine; PCP Family Medicine; Referring Provider Orthopaedic Surgery; Visit Provider Orthopaedic Surgery
DX: M25.531 Pain in right wrist (principal)
CPT/HCPCS: 73110

== ENCOUNTER → 2019-03-30 16:47 | Outpatient (CLI) | payer OTHER, SELFPAY ==
[2019-03-04 08:06] VITALS: BMI 27.5
--- NOTE | 2019-03-30 16:48 | MRI_ITS ---
STUDY: MRI LEFT SHOULDER REASON FOR EXAM: Left shoulder for 3 months, no specific injury. TECHNIQUE: Standardized fat and water weighted pulse sequences were obtained in all 3 orthogonal planes. COMPARISON: Radiographs 11/02/2018. FINDINGS: There is mild supraspinatus tendinosis (T2 coronal images 7, 8) without discrete tendon tear. Normal infraspinatus tendon. Normal subscapularis tendon. Normal teres minor tendon. Normal supraspinatus muscle. Normal infraspinatus muscle. Normal subscapularis muscle. Normal teres minor muscle. There is glenohumeral arthrosis with small marginal osteophytes of the humeral head and chondral thinning of the anterior humeral head (T2 axial images 10, 11). There is a small glenohumeral joint effusion. Normal humeral head and visualized proximal humerus. Normal biceps labral complex. Normal intracapsular long biceps tendon. Normal labrum. Normal capsulo- ligamentous complex. There is acromioclavicular arthrosis without substantial undersurface osteophytes (T2 sagittal image 5). There is a Type I morphology (flat undersurface), with a neutral orientation. There is subacromial-subdeltoid bursal fluid. Normal visualized coracohumeral and coracoacromial ligaments. Normal deltoid muscle. Normal trapezius muscle. MRI/Upper Ext Joint Only(Routine) IMPRESSION: Mild supraspinatus tendinosis without demonstrated rotator cuff tear. Glenohumeral arthrosis. Acromioclavicular arthrosis. Subacromial-subdeltoid bursitis. Small glenohumeral joint effusion. Electronically Signed: Jose Francisco Casey MD at 9:43 EDT Tel , Service support ,
--- NOTE | 2019-03-30 16:48 | MRI_ITS ---
STUDY: MRI RIGHT WRIST WITHOUT CONTRAST REASON FOR EXAM: Female, 63 years old. The patient presents with a history of trauma sustained during a fall several weeks ago, now complaining of ulnar-sided wrist pain. TECHNIQUE: Standardized fat and water weighted pulse sequences were obtained in all 3 orthogonal planes. COMPARISON: None. FINDINGS: Normal visualized distal radius and ulna. Normal distal radioulnar Articulation (DRUJ). Normal triangular fibrocartilaginous complex (TFCC). There are osseous contusion of the pisiform and triquetrum carpal bones (coronal STIR series 4, images 9-11; axial STIR series 7, image 14-15), with a joint effusion of the pisotriquetral articulation with proximal capsular prolapse (coronal STIR series 4, image 5). There is articular impaction with a macrotrabecular transcortical fracturing of the articular surface of the triquetrum (axial T1 series 6, image 14), with mild cortical impaction. The remainder the carpal bones are normal. Normal radiocarpal, intercarpal and midcarpal articulations. Normal visualized interosseous scapholunate ligament. Normal visualized dorsal (extrinsic) ligaments. Normal visualized volar (extrinsic) ligaments. Normal extensor tendons. Normal flexor tendons. Normal carpal tunnel with a normal median nerve. Normal carpometacarpal articulation of the thumb. Normal second through fifth carpometacarpal articulations. Normal visualized metacarpal bones. There is no demonstrated soft tissue abnormality. MRI/Upper Ext Joint Only(Routine) IMPRESSION: 1. Osseous contusion of the pisiform and triquetral carpal bones with macrotrabecular transcortical fracturing of the articular surface of the triquetrum and with mild cortical impaction. There is a joint effusion with capsular prolapse of the pisotriquetral articulation. 2. Otherwise, normal examination. Electronically Signed: Rosendo Hoyos DO at 12:05 EDT Tel , Service support ,
== END ==
PROVIDERS: Family Provider Family Medicine; PCP Family Medicine; Referring Provider Orthopaedic Surgery; Visit Provider Orthopaedic Surgery
DX: S63.591D Other specified sprain of right wrist, subsequent encounter (principal); M75.102 Unspecified rotator cuff tear or rupture of left shoulder, not specified as traumatic; M75.42 Impingement syndrome of left shoulder
CPT/HCPCS: 73221

== ENCOUNTER 2019-10-12 07:00 | Outpatient (RCR) | payer OTHER, SELFPAY ==
[2019-04-05 14:51] VITALS: BMI 27.5
--- NOTE | 2019-05-20 10:50 | HP.OTEVAL ---
Patient's Visit Information PEE FISH is a 63 year old F, referred to Occupational Therapy by PARISH YUNG, with a diagnosis of Right TFCC tear. Date of Evaluation: 05/19/19 Occupational Therapist: Adrianne Wen, JENIFERR/Aram, CHT - Subjective Subjective: Pt states she had fall in Jan. pain cont with right wrist- pt had MRI with positive TFCC injury. pt had sx on of TFCC repair and arrives with muster orthosis on for therapy. Pt reports fingers feeling stiff and swollen and wirst has some pain. Due to new healing structure pt limited with right UE use for ADLs and IADLs. 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 - ADLs Dressing: Button shirt, Pants, Shoes, Earrings Fasteners: Tie shoes, Snaps, [place] Eating: Bring food to mouth, Drink from glass Bathing: Handle washcloth & soap, Squeeze shampoo bottle Grooming: Squeeze toothpaste on, [place] teeth Kitchen: Chop with knife, Peel fruits & vegetables, Open jars, Open bottle caps, Ziplock bags, Lift gallon of milk Household: Vacuum Miscellaneous: Handle money (change), Hold change - Pain right UE 4 Pain Intensity Range: 5 - ROM Shoulder: right/left WNL Elbow: right/left WNL Forearm: right NT left WNL Wrist: right NT left 60/70 ROM Comments: pt 2 way from composite fist. ROM of right wrist will be tested at 4 weeks S/P - Strength Mailroom Messenger: right NT left 50# Lateral Pinch: right NT left 6# Tripod Pinch: right Nt left 6# Strength Comments: will test right at later date - Edema Wrist: right 17cm left 14cm PIP: right IF 6.5 left 5.5 Proximal Phalanx: right 18.5 left 18cm - Goals Goal:100% adherence to protocol: Yes Comment: Dr. Carrera [facility] protocol Goal:Daily scar massage when approriate: Yes Goal:Mailroom Messenger/Pinch strength at least 75% of unaffected hand: Yes Goal:No pain with affected hand use: Yes Goal:PIP Circumferences equal to unaffected hand: Yes Goal:Decrease scar hypersensitivity: Yes Other Goal: Right wrist ROM 35/35 or more to return pt to OF with ADLs and IADLS by D/C - Rehabilitation General Assessment: Pt currently 2 weeks s/p a right TFCC repair. Pt limited with ADLs due to healing structure. Pt would benefit from skilled OT services 1-2 x week for 6-8 weeks to return pt to PLOF. Therapist ed. pt on following [facility] Dr. Carrera's TFCC protoco.. Therapist ed. pt on shoulder/elbow and digit ROM ex. edema control. Therapist advised pt there is no AROM of wrist or forearm at this time. Pt demo understanding and agree to POC. Rehabilitation Potential: Excellent - Anticipated Interventions Anticipated Interventions: A/AAROM/PROM, Strengthening, Scar Care, Triggerpoint Release, Desensitization, Modalities, Orthoses, Ergonomic Education - Visit Plan Frequency: 1-2x /Week Duration: 2 Months General Plan: follow Dr. Carrera's [facility] protocol. TEXT: Thank you for the opportunity to evaluate your patient. For Medicare and Medicare HMO plans, please review the plan of care and approve it. It will need to be FAXED BACK to us at [phone] for Medicare purposes. Please let me know if there are questions or concerns regarding this plan of care. Physician Signature: Date:
--- NOTE | 2019-06-20 16:52 | OTREVAL_ITS ---
PARISH YUNG, It has been my pleasure to treat PEE FISH over the last 7 visits for Right TFCC tear. Please see the progress note below for an update on the occupational therapy plan of care! Subjective: Pt arrived wearing splint, states it's rubbing around CMC joint. Pt thinks it's still swelled a lot. Edema glove is leaving pits where seam is. Objective/Function: pt demo forearm supination 40/pronation 60. wrist 40/30. pt continues to demo difficulty forming composite fist- pt has been ed. on ROM of wrist and forear, edema control and use of brace-pt skin is very sensitive and is struggling with comfort- therapist advised pt she can use soft wist cock- up braces instead of orthoplast- pt and demo understanding. Plan Frequency: 1-2x /Week Duration: 2 Months Plan: pt 6 weeks 6 days s/p TFCC repair- pt to cont with wrist and forearm ROM Goals - Goals Other Goal: Right wrist ROM 35/35 or more to return pt to PLOF with ADLs and IADLS by D/C Anticipated Interventions Anticipated Interventions: A/AAROM/PROM, Strengthening, Scar Care, Triggerpoint Release, Desensitization, Modalities, Orthoses, Ergonomic Education Please do not hesitate to contact me at [phone] by phone or if you have questions or concerns regarding this new plan of care! Sincerely, Adrianne Wen, OTR/L, CHT
--- NOTE | 2019-08-01 10:20 | HP.OTREVAL ---
PARISH YUNG, It has been my pleasure to treat PEE FISH over the last 17 visits for Right TFCC tear. Please see the progress note below for an update on the occupational therapy plan of care! Subjective: pt continues to have pain down ulnar side of right LF/MCP region- pt states stiffness and states she is limited with functional use of right hand due to pain and stiffness. Objective/Function: right production engineer track strength 20#. left production engineer track 45#. pt demo with wrist 65/45. right forearm supination 85*. pt demo with nodules on palm of hand that causes pain with resistive grasp. Pt still has pain/sensitivity at right MCP joint that limits pts normal use of right hand with ADLs and IADLS. Plan Frequency: 1-2x /Week Duration: 4 Weeks Plan: pt to return to Dr. Goals - Goals Other Goal: Right wrist ROM 35/35 or more to return pt to PLOF with ADLs and IADLS by D/C Anticipated Interventions Anticipated Interventions: A/AAROM/PROM, Strengthening, Scar Care, Triggerpoint Release, Desensitization, Modalities, Orthoses, Ergonomic Education Please do not hesitate to contact me at [phone] by phone or if you have questions or concerns regarding this new plan of care! Sincerely, Adrianne Wen OTR/L, CHT
--- NOTE | 2019-08-01 14:47 | HP.OTREVAL ---
PARISH YUNG, It has been my pleasure to treat PEE FISH over the last 17 visits for Right TFCC tear. Please see the progress note below for an update on the occupational therapy plan of care! Subjective: pt continues to have pain down ulnar side of right LF/MCP region- pt states stiffness and states she is limited with functional use of right hand due to pain and stiffness. Objective/Function: right assistant teacher primary strength 20#. left assistant teacher primary 45#. pt demo with wrist 65/45. right forearm supination 85*. pt demo with nodules on palm of hand that causes pain with resistive grasp. Pt still has pain/sensitivity at right MCP joint that limits pts normal use of right hand with ADLs and IADLS. Plan Frequency: 1-2x /Week Duration: 4 Weeks Plan: pt to return to Dr. Goals - Goals Other Goal: Right wrist ROM 35/35 or more to return pt to PLOF with ADLs and IADLS by D/C Anticipated Interventions Anticipated Interventions: A/AAROM/PROM, Strengthening, Scar Care, Triggerpoint Release, Desensitization, Modalities, Orthoses, Ergonomic Education Please do not hesitate to contact me at [phone] by phone or if you have questions or concerns regarding this new plan of care! Sincerely, Shravan De La Cruz, DPT, OCS, CSCS
--- NOTE | 2019-09-15 10:29 | OTREVAL_ITS ---
PAR[facility] YUNG, It has been my pleasure to treat PEE FISH over the last 26 visits for Right TFCC tear. Please see the progress note below for an update on the occupational therapy plan of care! Subjective: pt arrives states she is seeing on Thursday-. pt states she continues to have pain in palm of hand where nodules have formed- this is more bothersome at this time for pt. Objective/Function: right forearm supination 75 pronation 80. wrist 55/60. pt continues to have joint stiffness in digits mostly LF. pt has nodules on palm of hand that are pianful and limit her functional grasp with ADLS right lateral pinch 8#. right tripod pinch 7#. right long term care pharmacist strength 25# left long term care pharmacist strength is 50#. pt continues to get pain at TFCC region. pt state last few seconds and is a painful throb that last 5 sec. pt states she feels she is without pain 75% of the time. Therapist is using UB PRE to increase UB strength- and we continue to increase pts functional long term care pharmacist strength as pt hal. Plan Frequency: 1-2x /Week Duration: 4 Weeks Plan: pt return to for further evaluation of nodules on palm Goals - Goals Other Goal: Right wrist ROM 35/35 or more to return pt to PLOF with ADLs and IADLS by D/C Anticipated Interventions Anticipated Interventions: A/AAROM/PROM, Strengthening, Scar Care, Triggerpoint Release, Desensitization, Modalities, Orthoses, Ergonomic Education Please do not hesitate to contact me at [phone] by phone or if you have questions or concerns regarding this new plan of care! Sincerely, Adrianne Wen, OTR/L, CHT
--- NOTE | 2019-09-28 08:59 | HP.OTREVAL ---
PAR[facility] YUNG, It has been my pleasure to treat PEE FISH over the last 30 visits for Right TFCC tear. Please see the progress note below for an update on the occupational therapy plan of care! Subjective: Pt states she continues to have stiffness in her joints and pain where nodels are on the palm of her hand- Objective/Function: right forearm supination 75 pronation 80. wrist 55/60. pt continues to have joint stiffness in digits mostly LF. pt has nodules on palm of hand that are pianful and limit her functional grasp with ADLS right lateral pinch 8#. right tripod pinch 7#. right master motorcycle technician strength 25# left master motorcycle technician strength is 50#. pt continues to get pain at TFCC region. pt state last few seconds and is a painful throb that last 5 sec. pt states she feels she is without pain 75% of the time. Therapist is using UB PRE to increase UB strength- and we continue to increase pts functional master motorcycle technician strength as pt hal. Plan Frequency: 1-2x /Week Duration: 4 Weeks Plan: pt return to for further evaluation of nodules on palm Goals - Goals Other Goal: Right wrist ROM 35/35 or more to return pt to PLOF with ADLs and IADLS by D/C Anticipated Interventions Anticipated Interventions: A/AAROM/PROM, Strengthening, Scar Care, Triggerpoint Release, Desensitization, Modalities, Orthoses, Ergonomic Education Please do not hesitate to contact me at [phone] by phone or if you have questions or concerns regarding this new plan of care! Sincerely, Adrianne Wen, OTR/L, CHT
--- NOTE | 2019-11-22 12:03 | HP.OTDCSUM_ITS ---
It has been my pleasure to treat PEE FISH under orders from PARISH YUNG, for the diagnosis of Right TFCC tear for a total of 34 visit(s). Please see the following information for a summary of their discharge status. % Improvement: 75 Objective/Function: right forearm supination 75 pronation 80. wrist 55/60. pt continues to have joint stiffness in digits mostly LF. pt has nodules on palm of hand that are pianful and limit her functional grasp with ADLS right lateral pinch 8#. right tripod pinch 7#. right ground school instructor strength 25# left ground school instructor strength is 50#. pt continues to get pain at TFCC region. pt state last few seconds and is a painful throb that last 5 sec. pt states she feels she is without pain 75% of the time. Therapist is using UB PRE to increase UB strength- and we continue to increase pts functional ground school instructor strength as pt hal. Patient Goals: Regain Mobility, Regain Strength, Decrease Pain, Decrease Swelling/Stiffness, Use Hand/Wrist/Arm Normally Again Goal:100% adherence to protocol: Yes Goal:Daily scar massage when approriate: Yes Goal:High School Guidance Counselor/Pinch strength at least 75% of unaffected hand: Yes Goal:No pain with affected hand use: Yes Goal:PIP Circumferences equal to unaffected hand: Yes Goal:Decrease scar hypersensitivity: Yes Other Goal: Right wrist ROM 35/35 or more to return pt to PLOF with ADLs and IADLS by D/C Plan: pt return to for further evaluation of nodules on palm If there are questions or concerns regarding this patient's occupational therapy, please fell free to call me at [phone]. Thank you for the referral of this patient. Sincerely, Adrianne Wen, OTR/L, CHT
== END 2019-10-12 19:00 | disposition home or self-care (01) ==
LOC: OT 07:00
PROVIDERS: Family Provider Family Medicine; PCP Family Medicine
DX: S63.591D Other specified sprain of right wrist, subsequent encounter (principal)
CPT/HCPCS: 97035; 97110; 97140; 97166; 97530; 97760; 97763

== ENCOUNTER → 2020-01-17 | Outpatient (CLI) | payer OTHER, SELFPAY ==
[2020-01-16 14:29] VITALS: BMI 27.5
[2020-01-17 18:03] LABS: Absolute Lymphocyte Count 1.19 X10^3/uL (0.83-4.51); Absolute Neutrophil Count 4.7 X10^3/uL (2.0-7.7); Basophil# 0.03 X10^3/uL; Basophil% 0.5 % (0-1); Eosinophil# 0.12 X10^3/uL; Eosinophils% 1.8 % (0-5); Hematocrit 38.6 % (37-47); Hemoglobin 12.1 g/dL (12.0-15.0); Lymphocyte # 1.19 X10^3/ul (4.0); Lymphocyte % 18.2 % (19-41); Mean Corp Hgb Conc 31.3 g/dL (32-36); Mean Corpuscular Hgb 26.4 pg (27.0-32.0); Mean Corpuscular Volume 84.3 fL (81-99); Mean Platelet Vol. 11.1 fl (6.2-12.0); Monocyte# 0.51 X10^3/uL; Monocyte% 7.8 % (0-10); NRBC Flagged by Analyzer 0 % (0-5); Neutrophil # 4.67 X10^3/uL (2.7-7.7); Neutrophil % 71.2 % (47-70); Platelet Count 199 K/mm3 (150-450); RBC Distribution Width CV 15.5 % (11.6-14.6); RBC Distribution Width SD 46.7 fl (35.1-43.9); Red Blood Count 4.58 M/mm3 (4.2-5.4); White Blood Count 6.6 K/mm3 (4.4-11.0)
[2020-01-17 18:14] LABS: Vitamin D,25 Hydroxy 31.8 ng/mL
[2020-01-17 18:34] LABS: AST(SGOT) 32 U/L (15-37); Alanine Aminotransfer ALT/SGPT 36 U/L (13-56); Albumin, Serum 3.8 g/dL (3.2-5.0); Alkaline Phosphatase 76 U/L (45-117); Anion Gap 7 (5-15); BUN 14 mg/dL (7-18); BUN/Creat Ratio 15.5 RATIO (10-20); Calcium,Total 9.1 mg/dL (8.5-10.1); Chloride 105 mmol/L (98-107); Creatinine, Serum 0.91 mg/dL (0.55-1.02); EST Glomerular Filtration Rate 67 mL/min (>60); Est Glom Filt Rate - Afr Amer 80 mL/min (>60); Globulin 3.8 g/dL (2.2-4.2); Glucose 88 mg/dL (74-106); Potassium 3.9 mmol/L (3.5-5.1); Protein, Total 7.6 g/dL (6.4-8.2); Sodium Level 139 mmol/L (136-145); Thyroid Stim Hormone (TSH) 1.11 uIU/mL (0.358-3.74)
[2020-01-20 16:47] LABS: HPV Reflexed? NOT INDICATED
== END | disposition home or self-care (01) ==
LOC: MFPLAB 15:49
PROVIDERS: PCP Family Medicine; Referring Provider Family Medicine; Visit Provider Family Medicine
DX: E55.9 Vitamin D deficiency, unspecified (principal); E78.00 Pure hypercholesterolemia, unspecified; Z12.4 Encounter for screening for malignant neoplasm of cervix
CPT/HCPCS: 36415; 80053; 82306; 84443; 85025; 88175; G0145

== ENCOUNTER → 2020-01-24 14:47 | Outpatient (CLI) | payer OTHER, SELFPAY ==
[2020-01-16 14:29] VITALS: BMI 27.5
--- NOTE | 2020-01-24 14:54 | BD_ITS ---
STUDY: DUAL ENERGY X-RAY ABSORPTIOMETRY / DXA REASON FOR EXAM: Female, 64 years old. 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 COMPARISON: 12/29/2017. FINDINGS: Lumbar Spine (L1-L4): g/cm2 (0.956) / T-score (-1.8) / Z-score (-0.3) Findings are suggestive of osteopenia with a slightly increased fracture risk. Left Femur Total: g/cm2 (0.894) / T-score (-0.9) / Z-score (0.2) Left Femoral Neck: g/cm2 (0.867) / T-score (-1.2) / Z-score (0.2) Right Femur Total: g/cm2 (0.907) / T-score (-0.8) / Z-score (0.3) Right Femoral Neck: g/cm2 (0.932) / T-score (-0.8) / Z-score ( 0.6 ) : Lumbar Spine (L1-L4): There has been reduction of bone density since the previous examination. Left Femur Total: Reduction of bone mineral density 1.3% Right Femur Total reduction of bone mineral density of 2.3% BD/Dexa Bone Density Study IMPRESSION: The patient is considered osteopenic as outlined below according to [place] Organization (WHO) criteria with a slightly reduced fracture risk. There has been reduction of bone density since the previous examination. Reference Information: The T-score is the number of standard deviations above or below the standard which is normal for young adults at their peak bone mineral density. The World Health Organization (WHO) interprets the T-scores as follows: Above -1 Normal bone density Between -1 and -2.5 Osteopenia Equal to / or below -2.5 Osteoporosis As a practical clinical guideline, osteopenia may be graded as follows: Mild -1 through -1.5 Moderate -1.6 through -2.0 Severe -2.1 through -2.4 The Z-score is the number of standard deviations above or below age-matched controls. A Z-score of less than -1.5 would be considered abnormal. References: 1. NIH Osteoporosis and Related Bone Diseases http://www.osteo.org 2. International Society for Clinical Densitometry http://www.iscd.org 3. National Osteoporosis Foundation http://www.nof.org Electronically Signed: Iban Gautam MD at 21:54 EDT , Service support ,
== END ==
PROVIDERS: PCP Family Medicine; Referring Provider Family Medicine; Visit Provider Family Medicine
DX: M81.0 Age-related osteoporosis without current pathological fracture (principal)
CPT/HCPCS: 77080

== ENCOUNTER → 2020-02-27 | Outpatient (CLI) | payer OTHER, SELFPAY ==
[2020-01-16 14:29] VITALS: BMI 27.5
[2020-01-30 15:19] VITALS: BMI 27.5
--- NOTE | 2020-02-27 07:04 | BI_ITS ---
MAMMOGRAPHY - BILATERAL SCREENING REASON FOR EXAM: Female, 64 years old. Routine annual screening examination. PERTINENT HISTORY: Non-contributory. TECHNIQUE: Digital bilateral breast juan carlos (3D mammographic acquisition) in the CC and MLO projections. 2-D mediolateral oblique (MLO) and craniocaudad (CC) views of both breasts were obtained. CAD: Full Field Digital Mammography with Computer Added Detection was performed. COMPARISON: Comparison is made with prior study 05/19/2019 and 01/09/2018. FINDINGS: Breast Composition: There are scattered areas of fibroglandular density. There are no dominant masses or suspicious calcifications. Stable small benign-appearing bilateral axillary lymph nodes. No other significant abnormalities are identified. There has been no significant change since the prior study. BI/SCREEN MAMM (CAD) W/JUAN CARLOS BILAT IMPRESSION: Stable bilateral screening mammogram. Yearly follow-up mammogram recommended. (A) ASSESSMENT CATEGORY: BIRADS Category 2: Benign. A letter regarding these results will be sent to the patient by the facility within 30 days. Approximately 10% of breast cancers are not detected by mammography. A normal mammogram should not delay biopsy of a clinically suspicious abnormality. [id number] Electronically Signed: Stef Youngblood, at 8:26 EDT , Service support ,
== END | disposition home or self-care (01) ==
LOC: OPBI 07:03
PROVIDERS: PCP Family Medicine; Referring Provider Family Medicine; Visit Provider Family Medicine
DX: Z12.31 Encounter for screening mammogram for malignant neoplasm of breast (principal)
CPT/HCPCS: 77063; 77067

== ENCOUNTER → 2020-03-01 | Outpatient (CLI) | payer OTHER, SELFPAY ==
[2020-03-01 15:16] VITALS: BMI 28.3
[2020-03-01 16:59] LABS: Ferritin 17 ng/mL (8-252); Vitamin B12 437 pg/mL (211-911)
[2020-03-01 17:03] LABS: Vitamin D,25 Hydroxy 28.1 ng/mL
[2020-03-04 14:55] LABS: Thyroid Peroxidase AB < 9 IU/mL (0-34)
== END | disposition home or self-care (01) ==
LOC: BIMLAB 15:53
PROVIDERS: PCP Family Medicine; Visit Provider Internal Medicine Endocrinology, Diabetes & Metabolism
DX: E04.9 Nontoxic goiter, unspecified (principal); R20.2 Paresthesia of skin; R53.81 Other malaise; R53.83 Other fatigue
CPT/HCPCS: 36415; 82306; 82607; 82728; 86376

== ENCOUNTER → 2021-02-27 15:28 | Outpatient (CLI) | payer OTHER, SELFPAY ==
--- NOTE | 2021-02-27 15:30 | BI_ITS ---
MAMMOGRAPHY - BILATERAL SCREENING REASON FOR EXAM: Female, 65 years old. Routine annual screening examination. PERTINENT HISTORY: Non-contributory. TECHNIQUE: Digital bilateral breast juan carlos (3D mammographic acquisition) in the CC and MLO projections. 2-D mediolateral oblique (MLO) and craniocaudad (CC) views of both breasts were obtained. CAD: Full Field Digital Mammography with Computer Added Detection was performed. COMPARISON: Comparison is made with prior study dated 02/27/2020 and 02/17/2019. FINDINGS: Breast Composition: There are scattered areas of fibroglandular density. There are no dominant masses or suspicious calcifications. Stable small benign appearing bilateral axillary No other significant abnormalities are identified. There has been no significant change since the prior study. BI/SCRN MAMM (CAD)W/JUAN CARLOS BILAT IMPRESSION: Stable bilateral screening mammogram. Yearly follow-up mammogram recommended. (A) ASSESSMENT CATEGORY: BIRADS Category 2: Benign. A letter regarding these results will be sent to the patient by the facility within 30 days. Approximately 10% of breast cancers are not detected by mammography. A normal mammogram should not delay biopsy of a clinically suspicious abnormality. [id number] Electronically Signed: Stef Youngblood MD at 7:53 EDT , Service support ,
== END ==
PROVIDERS: PCP Family Medicine; Referring Provider Family Medicine; Visit Provider Family Medicine
DX: Z12.31 Encounter for screening mammogram for malignant neoplasm of breast (principal)
CPT/HCPCS: 77063; 77067

== ENCOUNTER → 2021-03-26 07:19 | Outpatient (CLI) | payer OTHER, SELFPAY ==
[2021-03-26 08:42] LABS: AST(SGOT) 36 U/L (15-37); Alanine Aminotransfer ALT/SGPT 39 U/L (13-56); Cholesterol 181 mg/dL (200); High Density Lipoprotein 56 mg/dL; Triglycerides 126 mg/dL; Very Low Density Lipoprotein 25 mg/dL (5-40)
== END ==
PROVIDERS: PCP Family Medicine
DX: E06.3 Autoimmune thyroiditis (principal); E24.9 Cushing's syndrome, unspecified
CPT/HCPCS: 36415; 80061; 82533; 84450; 84460

== ENCOUNTER → 2021-05-28 15:44 | Outpatient (CLI) | payer OTHER, SELFPAY ==
[2021-05-28 17:22] LABS: Absolute Lymphocyte Count 1.31 X10^3/uL (0.83-4.51); Absolute Neutrophil Count 3.5 X10^3/uL (2.0-7.7); Basophil# 0.02 X10^3/uL; Basophil% 0.4 % (0-1); Eosinophil# 0.11 X10^3/uL; Hematocrit 36.3 % (37-47); Hemoglobin 11.5 g/dL (12.0-15.0); Lymphocyte # 1.31 X10^3/ul (0.83-4.51); Lymphocyte % 24.1 % (19-41); Mean Corp Hgb Conc 31.7 g/dL (32-36); Mean Corpuscular Hgb 26.4 pg (27.0-32.0); Mean Corpuscular Volume 83.3 fL (81-99); Mean Platelet Vol. 11.6 fl (6.2-12.0); Monocyte# 0.44 X10^3/uL; Monocyte% 8.1 % (0-10); NRBC Flagged by Analyzer 0 % (0-5); Neutrophil # 3.54 X10^3/uL (2.7-7.7); Platelet Count 191 K/mm3 (150-450); RBC Distribution Width CV 14.8 % (11.6-14.6); RBC Distribution Width SD 45.1 fl (35.1-43.9); Red Blood Count 4.36 M/mm3 (4.2-5.4); White Blood Count 5.4 K/mm3 (4.4-11.0)
[2021-05-28 18:11] LABS: Vitamin B12 319 pg/mL (211-911); Vitamin D,25 Hydroxy 68.2 ng/mL
[2021-05-28 18:20] LABS: ALB/GLOB Ratio 0.9 RATIO (0.9-2.4); AST(SGOT) 24 U/L (15-37); Alanine Aminotransfer ALT/SGPT 30 U/L (13-56); Albumin, Serum 3.6 g/dL (3.2-5.0); Alkaline Phosphatase 58 U/L (45-117); Anion Gap 9 (5-15); BUN 13 mg/dL (7-18); BUN/Creat Ratio 16.2 RATIO (10-20); Calcium,Total 9.5 mg/dL (8.5-10.1); Chloride 104 mmol/L (98-107); EST Glomerular Filtration Rate 76 mL/min (>60); Est Glom Filt Rate - Afr Amer 93 mL/min (>60); Ferritin 35 ng/mL (8-252); Globulin 3.8 g/dL (2.2-4.2); Glucose 82 mg/dL (74-106); Iron 42 ug/dL (50-170); Potassium 3.5 mmol/L (3.5-5.1); Protein, Total 7.4 g/dL (6.4-8.2); Sodium Level 140 mmol/L (136-145); Thyroid Stim Hormone (TSH) 1.26 uIU/mL (0.358-3.74)
== END ==
PROVIDERS: PCP Family Medicine; Referring Provider Nurse Practitioner Adult Health; Visit Provider Nurse Practitioner Adult Health
DX: E04.2 Nontoxic multinodular goiter (principal); E55.9 Vitamin D deficiency, unspecified; E61.1 Iron deficiency; D51.3 Other dietary vitamin B12 deficiency anemia
CPT/HCPCS: 36415; 80053; 82306; 82607; 82728; 83540; 84443; 85025

== ENCOUNTER 2021-08-30 08:03 | Outpatient (CLI) | payer OTHER, SELFPAY ==
--- NOTE | 2021-08-30 08:15 | RAD_ITS ---
INDICATION: DYSPHAGIA EXAMINATION/TECHNIQUE: Barium is oral contrast and gas bubbles were administered to the patient. Total Fluoroscopic Time: 30 seconds AND number of Fluoroscopic Images: 22 OR Radiation dosage index: COMPARISON: Barium swallow study from 05/12/2018. FINDINGS: There is a small hiatal hernia with questionable small associated Schatzki''s ring or esophageal web. There is significant delay in emptying of the esophagus into the stomach with mild diffuse upstream esophageal spasm. After some delay, contrast passes into the stomach. There is mild reflux induced. There are some thin linear transverse bands in the mid to lower esophagus which can be seen with feline esophagus and are typically transient bands associated with gastroesophageal reflux. There are no masses or other abnormal findings in the mucosal pattern. The patient was unable to swallow the barium pill due to gagging reflex after a a few attempts and decision was made not to proceed with administration of the pill. RAD/Esophagus Dual Contrast IMPRESSION: As above. Electronically Signed: Sumanth Ortiz, at 15:32 EDT ,
== END 2021-08-30 23:59 | disposition home or self-care (01) ==
LOC: RAD 08:04
PROVIDERS: PCP Family Medicine; Referring Provider Internal Medicine Gastroenterology; Visit Provider Internal Medicine Gastroenterology
DX: R13.10 Dysphagia, unspecified (principal)
CPT/HCPCS: 74221

== ENCOUNTER 2021-09-17 07:02 | Outpatient (CLI) | payer OTHER, SELFPAY ==
[2021-09-17 08:04] LABS: ALB/GLOB Ratio 0.9 RATIO (0.9-2.4); AST(SGOT) 23 U/L (15-37); Alanine Aminotransfer ALT/SGPT 30 U/L (13-56); Albumin, Serum 3.5 g/dL (3.2-5.0); Alkaline Phosphatase 90 U/L (45-117); Anion Gap 5 (5-15); BUN 19 mg/dL (7-18); BUN/Creat Ratio 18.3 RATIO (10-20); Calcium,Total 9.4 mg/dL (8.5-10.1); Chloride 106 mmol/L (98-107); Creatinine, Serum 1.04 mg/dL (0.55-1.02); EST Glomerular Filtration Rate 56 mL/min (>60); Est Glom Filt Rate - Afr Amer 68 mL/min (>60); Ferritin 57 ng/mL (8-252); Glucose 101 mg/dL (74-106); Iron 48 ug/dL (50-170); Protein, Total 7.5 g/dL (6.4-8.2); Sodium Level 141 mmol/L (136-145); Thyroid Stim Hormone (TSH) 2.87 uIU/mL (0.358-3.74)
[2021-09-17 08:55] LABS: Vitamin B12 488 pg/mL (211-911); Vitamin D,25 Hydroxy 84.6 ng/mL
== END 2021-09-17 23:59 | disposition home or self-care (01) ==
LOC: LAB 07:03
PROVIDERS: PCP Family Medicine; Referring Provider Physician Assistant; Visit Provider Physician Assistant
DX: E04.2 Nontoxic multinodular goiter (principal); E61.1 Iron deficiency; D51.3 Other dietary vitamin B12 deficiency anemia; E55.9 Vitamin D deficiency, unspecified
CPT/HCPCS: 36415; 80053; 82306; 82607; 82728; 83540; 84443

== ENCOUNTER → 2021-12-19 | Outpatient (CLI) | payer OTHER, SELFPAY ==
--- NOTE | 2021-12-19 13:26 | BI_ITS ---
MAMMOGRAPHY - BILATERAL SCREENING REASON FOR EXAM: Female, 65 years old. Routine annual screening examination. PERTINENT HISTORY: Non-contributory. TECHNIQUE: Digital bilateral breast juan carlos (3D mammographic acquisition) in the CC and MLO projections. 2-D mediolateral oblique (MLO) and craniocaudad (CC) views of both breasts were obtained. CAD: Full Field Digital Mammography with Computer Added Detection was performed. COMPARISON: Comparison is made with prior study dated 02/27/2021 and 02/27/2020. FINDINGS: Breast Composition: There are scattered areas of fibroglandular density. There are no dominant masses or suspicious calcifications. Stable small benign appearing bilateral axillary nodes. No other significant abnormalities are identified. There has been no significant change since the prior study. BI/SCRN MAMM (CAD)W/JUAN CARLOS BILAT IMPRESSION: Stable bilateral screening mammogram. Yearly follow-up mammogram recommended. (A) ASSESSMENT CATEGORY: BIRADS Category 2: Benign. A letter regarding these results will be sent to the patient by the facility within 30 days. Approximately 10% of breast cancers are not detected by mammography. A normal mammogram should not delay biopsy of a clinically suspicious abnormality. [id number] Electronically Signed: Stef Youngblood MD at 14:28 EDT ,
--- NOTE | 2021-12-19 13:26 | BD_ITS ---
STUDY: DUAL ENERGY X-RAY ABSORPTIOMETRY / DXA REASON FOR EXAM: Female, 65 years old. 733.00OsteoporosisBONE DENSITY REASON FOR EXAM TECHNIQUE: Bone Mineral Density (BMD) measurements of lumbar spine and bilateral hips were obtained. COMPARISON: Comparison is made with prior study dated 01/24/2020. FINDINGS: Lumbar Spine (L1-L4): g/cm2 (0.757) / T-score (-2.0) / Z-score (-0.3) Findings are suggestive of osteopenia with a moderate fracture risk. Left Femur Total: g/cm2 (0.821) / T-score (-1.0) / Z-score (0.3) Left Femoral Neck: g/cm2 (0.717) / T-score (-1.2) / Z-score (0.4) Right Femur Total: g/cm2 (0.874) / T-score (-0.6) / Z-score (0.7) Right Femoral Neck: g/cm2 (0.809) / T-score (-0.4) / Z-score (1.2) The T-Scores on the most recent prior examination were: Lumbar Spine (L1-L4): There has been worsening of bone density since the previous examination. Left Femur Total: which represents a worsening of 1.1%. Right Femur Total: which represents an improvement of 3.6%. BD/Dexa Bone Density Study IMPRESSION: The patient is considered osteopenic as outlined below according to [place] Organization (WHO) criteria with a moderate fracture risk. There has been worsening of bone density since the previous examination. Reference Information: The T-score is the number of standard deviations above or below the standard which is normal for young adults at their peak bone mineral density. The World Health Organization (WHO) interprets the T-scores as follows: Above -1 Normal bone density Between -1 and -2.5 Osteopenia Equal to / or below -2.5 Osteoporosis As a practical clinical guideline, osteopenia may be graded as follows: Mild -1 through -1.5 Moderate -1.6 through -2.0 Severe -2.1 through -2.4 The Z-score is the number of standard deviations above or below age-matched controls. A Z-score of less than -1.5 would be considered abnormal. References: 1. NIH Osteoporosis and Related Bone Diseases www osteo.org 2. International Society for Clinical Densitometry www iscd.org 3. National Osteoporosis Foundation www nof.org Electronically Signed: Stef Youngblood MD at 15:04 EDT ,
== END | disposition home or self-care (01) ==
LOC: OPBD 13:25
PROVIDERS: PCP Family Medicine; Visit Provider Family Medicine
DX: Z12.31 Encounter for screening mammogram for malignant neoplasm of breast (principal); M85.80 Other specified disorders of bone density and structure, unspecified site; M81.0 Age-related osteoporosis without current pathological fracture
CPT/HCPCS: 77063; 77067; 77080

== ENCOUNTER 2022-02-04 16:01 | Outpatient (CLI) | payer OTHER, SELFPAY ==
[2022-02-04 16:45] LABS: Vitamin D,25 Hydroxy 63.2 ng/mL
[2022-02-04 16:50] LABS: ALB/GLOB Ratio 1.1 RATIO (0.9-2.4); AST(SGOT) 38 U/L (15-37); Alanine Aminotransfer ALT/SGPT 41 U/L (13-56); Alkaline Phosphatase 60 U/L (45-117); Anion Gap 6 (5-15); BUN 15 mg/dL (7-18); BUN/Creat Ratio 15.2 RATIO (10-20); Calcium,Total 9.5 mg/dL (8.5-10.1); Chloride 104 mmol/L (98-107); Creatinine, Serum 0.99 mg/dL (0.55-1.02); EST Glomerular Filtration Rate 60 mL/min (>60); Est Glom Filt Rate - Afr Amer 72 mL/min (>60); Ferritin 60 ng/mL (8-252); Globulin 3.8 g/dL (2.2-4.2); Glucose 91 mg/dL (74-106); Iron 53 ug/dL (50-170); Magnesium 2.3 mg/dL (1.6-2.6); Potassium 3.7 mmol/L (3.5-5.1); Protein, Total 7.8 g/dL (6.4-8.2); Sodium Level 139 mmol/L (136-145); Thyroid Stim Hormone (TSH) 1.39 uIU/mL (0.358-3.74)
== END 2022-02-04 23:59 | disposition home or self-care (01) ==
LOC: LAB 16:02
PROVIDERS: PCP Family Medicine; Visit Provider Internal Medicine Endocrinology, Diabetes & Metabolism
DX: E04.2 Nontoxic multinodular goiter (principal); E55.9 Vitamin D deficiency, unspecified; N61.1 Abscess of the breast and nipple; E61.1 Iron deficiency
CPT/HCPCS: 36415; 80053; 82306; 82728; 83540; 83735; 84443

== ENCOUNTER → 2022-05-21 | Outpatient (CLI) | payer OTHER, SELFPAY | END | disposition home or self-care (01) | LOC: LABSPEC 15:43 | PROVIDERS: PCP Family Medicine; Visit Provider Otolaryngology | DX: R05.9 Cough, unspecified (principal) | CPT/HCPCS: 87804 ==

== ENCOUNTER → 2022-08-19 | Outpatient (CLI) | payer OTHER, SELFPAY ==
[2022-08-19 17:17] LABS: Vitamin B12 751 pg/mL (211-911); Vitamin D,25 Hydroxy 67.2 ng/mL
[2022-08-19 17:24] LABS: ALB/GLOB Ratio 1.1 RATIO (0.9-2.4); AST(SGOT) 31 U/L (15-37); Alanine Aminotransfer ALT/SGPT 31 U/L (13-56); Alkaline Phosphatase 52 U/L (45-117); Anion Gap 7 (5-15); BUN 17 mg/dL (7-18); BUN/Creat Ratio 19.8 RATIO (10-20); Calcium,Total 9.2 mg/dL (8.5-10.1); Chloride 103 mmol/L (98-107); Creatinine, Serum 0.86 mg/dL (0.55-1.02); EST Glomerular Filtration Rate 70 mL/min (>60); Est Glom Filt Rate - Afr Amer 85 mL/min (>60); Ferritin 68 ng/mL (8-252); Globulin 3.6 g/dL (2.2-4.2); Glucose 83 mg/dL (74-106); Iron 62 ug/dL (50-170); Potassium 3.6 mmol/L (3.5-5.1); Protein, Total 7.6 g/dL (6.4-8.2); Sodium Level 139 mmol/L (136-145); Thyroid Stim Hormone (TSH) 1.71 uIU/mL (0.358-3.74)
== END | disposition home or self-care (01) ==
LOC: LAB 16:07
PROVIDERS: PCP Family Medicine; Referring Provider Internal Medicine Endocrinology, Diabetes & Metabolism; Visit Provider Internal Medicine Endocrinology, Diabetes & Metabolism
DX: E04.2 Nontoxic multinodular goiter (principal); E55.9 Vitamin D deficiency, unspecified; E61.1 Iron deficiency; D51.3 Other dietary vitamin B12 deficiency anemia
CPT/HCPCS: 36415; 80053; 82306; 82607; 82728; 83540; 84443

== ENCOUNTER 2022-09-10 16:46 | Outpatient (CLI) | payer OTHER, SELFPAY ==
[2022-09-10 19:04] LABS: AST(SGOT) 29 U/L (15-37); Alanine Aminotransfer ALT/SGPT 35 U/L (13-56); Cholesterol 170 mg/dL (200); High Density Lipoprotein 47 mg/dL; Triglycerides 255 mg/dL; Very Low Density Lipoprotein 51 mg/dL (5-40)
== END 2022-09-10 23:59 | disposition home or self-care (01) ==
LOC: MFPLAB 16:47
PROVIDERS: PCP Family Medicine; Referring Provider Family Medicine; Visit Provider Family Medicine
DX: E78.00 Pure hypercholesterolemia, unspecified (principal)
CPT/HCPCS: 36415; 80061; 84450; 84460

== ENCOUNTER → 2022-12-22 | Outpatient (CLI) | payer OTHER, SELFPAY ==
--- NOTE | 2022-12-22 08:13 | BI_ITS ---
MAMMOGRAPHY - BILATERAL SCREENING REASON FOR EXAM: Female, 67 years old. Routine annual screening examination. PERTINENT HISTORY: Non-contributory. TECHNIQUE: Digital bilateral breast juan carlos (3D mammographic acquisition) in the CC and MLO projections. 2-D mediolateral oblique (MLO) and craniocaudad (CC) views of both breasts were obtained. CAD: Full Field Digital Mammography with Computer Added Detection was performed. COMPARISON: Comparison is made with prior study dated December 19, 2021 and February 27, 2021. FINDINGS: Breast Composition: The breasts are almost entirely fatty. There are no dominant masses or suspicious calcifications. Stable small bilateral fat containing axillary lymph nodes. No other significant abnormalities are identified. There has been no significant change since the prior study. BI/SCRN MAMM (CAD)W/JUAN CARLOS BILAT IMPRESSION: Stable bilateral screening mammogram. Yearly follow-up mammogram recommended. (A) ASSESSMENT CATEGORY: BIRADS Category 2: Benign. A letter regarding these results will be sent to the patient by the facility within 30 days. Approximately 10% of breast cancers are not detected by mammography. A normal mammogram should not delay biopsy of a clinically suspicious abnormality. [id number] Electronically Signed: Stef Youngblood MD at 11:02 EDT ,
== END | disposition home or self-care (01) ==
LOC: OPBI 08:12
PROVIDERS: PCP Family Medicine; Referring Provider Family Medicine; Visit Provider Family Medicine
DX: Z12.31 Encounter for screening mammogram for malignant neoplasm of breast (principal)
CPT/HCPCS: 77063; 77067

== ENCOUNTER → 2023-02-04 | Outpatient (CLI) | payer OTHER, SELFPAY ==
[2023-02-04 17:33] LABS: Hematocrit 40.2 % (37-47); Hemoglobin 12.9 g/dL (12.0-15.0); Mean Corp Hgb Conc 32.1 g/dL (32-36); Mean Corpuscular Volume 84.1 fL (81-99); Mean Platelet Vol. 10.9 fl (6.2-12.0); Platelet Count 153 K/mm3 (150-450); RBC Distribution Width CV 13.8 % (11.6-14.6); RBC Distribution Width SD 42.7 fl (35.1-43.9); Red Blood Count 4.78 M/mm3 (4.2-5.4); White Blood Count 8.4 K/mm3 (4.4-11.0)
[2023-02-04 17:59] LABS: Iron 38 ug/dL (50-170)
== END | disposition home or self-care (01) ==
PROVIDERS: PCP Family Medicine; Referring Provider Internal Medicine Gastroenterology; Visit Provider Internal Medicine Gastroenterology
DX: D50.9 Iron deficiency anemia, unspecified (principal)
CPT/HCPCS: 36415; 83540; 85027

== ENCOUNTER → 2023-02-06 | Outpatient (CLI) | payer OTHER, SELFPAY ==
--- NOTE | 2023-02-06 10:58 | CT_ITS ---
STUDY: CT ABDOMEN AND PELVIS WITH CONTRAST - URINARY TRACT REASON FOR EXAM: Female, 67 years old. Lower abdominal pain, constipation x3 days. History of hysterectomy. RADIATION DOSAGE (If Supplied By Facility): CTDIvol = ( 16.60 ) mGy, DLP = ( 870.01 ) mGycm TECHNIQUE: Oral and amp; IV Gastrografin and amp; 100mL Isovue-300 was administered. Transaxial images were obtained from the dome of the diaphragm to the symphysis pubis in the arterial, nephrographic and excretory phases. Multiplanar coronal and sagittal images were reformatted. Individualized Dose Optimization Techniques Were Used For This CT. COMPARISON: Prior study dated: CT of the chest dated January 21, 2019 FINDINGS: The visualized lung bases are unremarkable. The visualized portions of the heart are within normal limits. There are scattered stable well-circumscribed low-attenuation foci within the liver the largest measuring up to 2.0 cm which likely reflects cysts and/or hemangiomas. Normal gallbladder and extrahepatic biliary system. Normal spleen. Normal pancreas. Normal bilateral adrenal glands. There is a small hiatal hernia. Normal small intestine. There is diverticulosis, with thickening of the sigmoid colon wall, and pericolonic inflammation changes consistent with acute diverticulitis. The appendix is visualized and appears normal. There is diffuse atherosclerotic calcification of the abdominal aorta, without a demonstrated aneurysm. No retroperitoneal adenopathy. Normal right kidney. Normal left kidney. Normal urinary bladder. There are postsurgical changes within the pelvis. Normal abdominal wall. There are diffuse degenerative changes of the visualized lumbar spine. CT/Abdomen/Pelvis WITH Contrast IMPRESSION: Acute diverticulitis of the sigmoid colon. Atherosclerosis. Hiatal hernia. Electronically Signed: Shawanda De La Cruz MD at 13:45 EDT ,
== END | disposition home or self-care (01) ==
PROVIDERS: PCP Family Medicine; Referring Provider Family Medicine; Visit Provider Family Medicine
DX: R10.9 Unspecified abdominal pain (principal)
CPT/HCPCS: 74177; Q9967

== ENCOUNTER → 2023-03-31 | Outpatient (CLI) | payer OTHER, SELFPAY ==
[2023-03-31 15:38] LABS: ALB/GLOB Ratio 1.1 RATIO (0.9-2.4); AST(SGOT) 36 U/L (15-37); Alanine Aminotransfer ALT/SGPT 47 U/L (13-56); Albumin, Serum 3.9 g/dL (3.2-5.0); Alkaline Phosphatase 49 U/L (45-117); Anion Gap 4 (5-15); BUN 16 mg/dL (7-18); BUN/Creat Ratio 18.5 RATIO (10-20); Calcium,Total 9.5 mg/dL (8.5-10.1); Chloride 107 mmol/L (98-107); Creatinine, Serum 0.87 mg/dL (0.55-1.02); EST Glomerular Filtration Rate 69 mL/min (>60); Est Glom Filt Rate - Afr Amer 84 mL/min (>60); Ferritin 76 ng/mL (8-252); Globulin 3.4 g/dL (2.2-4.2); Glucose 120 mg/dL (74-106); Iron 63 ug/dL (50-170); Magnesium 2.2 mg/dL (1.6-2.6); Potassium 3.6 mmol/L (3.5-5.1); Protein, Total 7.3 g/dL (6.4-8.2); Sodium Level 140 mmol/L (136-145); Thyroid Stim Hormone (TSH) 1.46 uIU/mL (0.358-3.74)
[2023-03-31 16:32] LABS: Vitamin D,25 Hydroxy 60.3 ng/mL
== END | disposition home or self-care (01) ==
LOC: LAB 14:24
PROVIDERS: PCP Family Medicine; Referring Provider Internal Medicine Endocrinology, Diabetes & Metabolism; Visit Provider Internal Medicine Endocrinology, Diabetes & Metabolism
DX: E04.2 Nontoxic multinodular goiter (principal); E61.1 Iron deficiency; E55.9 Vitamin D deficiency, unspecified
CPT/HCPCS: 36415; 80053; 82306; 82728; 83540; 83735; 84443

== ENCOUNTER → 2023-09-01 | Outpatient (CLI) | payer OTHER, SELFPAY ==
[2023-09-01 10:39] LABS: Vitamin B12 740 pg/mL (211-911)
[2023-09-01 10:45] LABS: ALB/GLOB Ratio 1.1 RATIO (0.9-2.4); AST(SGOT) 30 U/L (15-37); Alanine Aminotransfer ALT/SGPT 37 U/L (13-56); Albumin, Serum 3.9 g/dL (3.2-5.0); Alkaline Phosphatase 48 U/L (45-117); Anion Gap 4 (5-15); BUN 15 mg/dL (7-18); BUN/Creat Ratio 16.4 RATIO (10-20); Calcium,Total 9.2 mg/dL (8.5-10.1); Chloride 107 mmol/L (98-107); Creatinine, Serum 0.91 mg/dL (0.55-1.02); EST Glomerular Filtration Rate 65 mL/min (>60); Est Glom Filt Rate - Afr Amer 79 mL/min (>60); Ferritin 68 ng/mL (8-252); Globulin 3.5 g/dL (2.2-4.2); Glucose 102 mg/dL (74-106); Iron 55 ug/dL (50-170); Potassium 4.2 mmol/L (3.5-5.1); Protein, Total 7.4 g/dL (6.4-8.2); Sodium Level 141 mmol/L (136-145); Thyroid Stim Hormone (TSH) 1.41 uIU/mL (0.358-3.74)
== END | disposition home or self-care (01) ==
LOC: LAB 09:21
PROVIDERS: PCP Family Medicine; Referring Provider Internal Medicine Endocrinology, Diabetes & Metabolism; Visit Provider Internal Medicine Endocrinology, Diabetes & Metabolism
DX: E04.2 Nontoxic multinodular goiter (principal); E61.1 Iron deficiency; D51.3 Other dietary vitamin B12 deficiency anemia
CPT/HCPCS: 36415; 80053; 82607; 82728; 83540; 84443

== ENCOUNTER → 2023-12-24 | Outpatient (CLI) | payer MEDICARE, SELFPAY ==
--- NOTE | 2023-12-24 09:29 | BI_ITS ---
MAMMOGRAPHY - BILATERAL SCREENING REASON FOR EXAM: Female, 68 years old. Routine annual screening examination. PERTINENT HISTORY: Non-contributory. TECHNIQUE: Digital bilateral breast juan carlos (3D mammographic acquisition) in the CC and MLO projections. 2-D mediolateral oblique (MLO) and craniocaudad (CC) views of both breasts were obtained. CAD: Full Field Digital Mammography with Computer Added Detection was performed. COMPARISON: Comparison is made with prior study dated December 22, 2022 and December 19, 2021. FINDINGS: Breast Composition: The breasts are almost entirely fatty. There are no dominant masses or suspicious calcifications. No other significant abnormalities are identified. There has been no significant change since the prior study. BI/SCRN MAMM (CAD)W/JUAN CARLOS BILAT IMPRESSION: Stable bilateral screening mammogram. Yearly follow-up mammogram recommended. (A) ASSESSMENT CATEGORY: BIRADS Category 1: Negative. A letter regarding these results will be sent to the patient by the facility within 30 days. Approximately 10% of breast cancers are not detected by mammography. A normal mammogram should not delay biopsy of a clinically suspicious abnormality. [id number] Electronically Signed: Stef Youngblood MD at 10:22 EDT ,
== END | disposition home or self-care (01) ==
PROVIDERS: PCP Family Medicine; Referring Provider Family Medicine; Visit Provider Family Medicine
DX: Z12.31 Encounter for screening mammogram for malignant neoplasm of breast (principal)
CPT/HCPCS: 77063; 77067

== ENCOUNTER → 2024-01-26 | Outpatient (CLI) | payer MEDICARE, SELFPAY ==
[2024-01-26 17:52] LABS: AST(SGOT) 32 U/L (15-37); Alanine Aminotransfer ALT/SGPT 34 U/L (13-56); Cholesterol 168 mg/dL (200); High Density Lipoprotein 49 mg/dL; Triglycerides 215 mg/dL; Very Low Density Lipoprotein 43 mg/dL (5-40)
== END | disposition home or self-care (01) ==
LOC: MFPLAB 14:38
PROVIDERS: PCP Family Medicine; Visit Provider Family Medicine
DX: E78.00 Pure hypercholesterolemia, unspecified (principal)
CPT/HCPCS: 36415; 80061; 84443; 84450; 84460

== ENCOUNTER 2024-03-22 09:35 | Outpatient (CLI) | payer MEDICARE, SELFPAY ==
[2024-03-22 10:45] LABS: Vitamin B12 872 pg/mL (211-911)
[2024-03-22 10:57] LABS: ALB/GLOB Ratio 1.1 RATIO (0.9-2.4); AST(SGOT) 32 U/L (15-37); Alanine Aminotransfer ALT/SGPT 34 U/L (13-56); Albumin, Serum 4.2 g/dL (3.2-5.0); Alkaline Phosphatase 56 U/L (45-117); Anion Gap 8 (5-15); BUN 20 mg/dL (7-18); BUN/Creat Ratio 21.2 RATIO (10-20); Chloride 103 mmol/L (98-107); Creatinine, Serum 0.94 mg/dL (0.55-1.02); EST Glomerular Filtration Rate 63 mL/min (>60); Est Glom Filt Rate - Afr Amer 76 mL/min (>60); Ferritin 81 ng/mL (8-252); Globulin 3.8 g/dL (2.2-4.2); Glucose 103 mg/dL (74-106); Iron 75 ug/dL (50-170); Potassium 3.9 mmol/L (3.5-5.1); Sodium Level 139 mmol/L (136-145)
== END 2024-03-22 23:59 | disposition home or self-care (01) ==
LOC: OLS.ABSOLU 09:38
PROVIDERS: PCP Family Medicine; Referring Provider Internal Medicine Endocrinology, Diabetes & Metabolism; Visit Provider Internal Medicine Endocrinology, Diabetes & Metabolism
DX: E04.2 Nontoxic multinodular goiter (principal); E61.1 Iron deficiency; D51.3 Other dietary vitamin B12 deficiency anemia
CPT/HCPCS: 36415; 80053; 82607; 82728; 83540; 84443

== ENCOUNTER → 2024-07-05 | Outpatient (CLI) | payer MEDICARE, SELFPAY ==
[2024-07-05 10:10] LABS: Vitamin D,25 Hydroxy 65.4 ng/mL
[2024-07-05 10:16] LABS: ALB/GLOB Ratio 1.1 RATIO (0.9-2.4); AST(SGOT) 27 U/L (15-37); Alanine Aminotransfer ALT/SGPT 39 U/L (13-56); Alkaline Phosphatase 75 U/L (45-117); Anion Gap 6 (5-15); BUN 18 mg/dL (7-18); BUN/Creat Ratio 19.4 RATIO (10-20); Calcium,Total 9.7 mg/dL (8.5-10.1); Chloride 106 mmol/L (98-107); Creatinine, Serum 0.93 mg/dL (0.55-1.02); EST Glomerular Filtration Rate 64 mL/min (>60); Est Glom Filt Rate - Afr Amer 77 mL/min (>60); Globulin 3.6 g/dL (2.2-4.2); Glucose 105 mg/dL (74-106); Potassium 4.3 mmol/L (3.5-5.1); Protein, Total 7.6 g/dL (6.4-8.2); Sodium Level 141 mmol/L (136-145)
== END | disposition home or self-care (01) ==
LOC: LAB 09:25
PROVIDERS: PCP Family Medicine; Referring Provider Internal Medicine Endocrinology, Diabetes & Metabolism; Visit Provider Internal Medicine Endocrinology, Diabetes & Metabolism
DX: E04.2 Nontoxic multinodular goiter (principal); M81.0 Age-related osteoporosis without current pathological fracture; E55.9 Vitamin D deficiency, unspecified
CPT/HCPCS: 36415; 80053; 82306; 84443

== ENCOUNTER → 2024-11-29 | Outpatient (CLI) | payer MEDICARE, SELFPAY ==
[2024-11-29 14:53] LABS: ALB/GLOB Ratio 1.7 RATIO (0.9-2.4); AST(SGOT) 31 U/L (<=31); Alanine Aminotransfer ALT/SGPT 24 U/L (<=34); Albumin, Serum 4.5 g/dL (3.4-4.8); Alkaline Phosphatase 65 U/L (35-104); Anion Gap 12 (5-15); BUN 20 mg/dL (4-19); BUN/Creat Ratio 20.6 RATIO (10-20); Calcium,Total 10.3 mg/dL (7.6-11.0); Carbon Dioxide 26.9 mmol/L (21.0-32.0); Chloride 103 mmol/L (98-108); Creatinine, Serum 0.95 mg/dL (0.70-1.20); EST Glomerular Filtration Rate 65 (>60); Ferritin 106 ng/mL (22-378); Globulin 2.7 g/dL (2.2-4.2); Glucose 96 mg/dL (70-99); Potassium 4.3 mmol/L (3.3-5.1); Protein, Total 7.2 g/dL (5.9-8.4); Sodium Level 142 mmol/L (133-145); Total Bilirubin 0.33 mg/dL (0.00-1.30)
[2024-11-29 16:44] LABS: Iron 63 ug/dL (50-170); Magnesium 2.3 mg/dL (1.5-2.2)
--- OUTSIDE RECORDS SUMMARY | 2024-11-29 21:00 | XMS RPT_ITS | CCD ---
Author Organization [facility] Care Team Providers Care Front End Alignment Specialist Name Role Phone Brandi Min Unavailable Brandi Min Unavailable Brandi Min Unavailable Dr. Sherita Hendricks Primary Care Provider Dr. Sherita Hendricks Referring Provider [phone] REED Bauman Attending Provider Sherita Hendricks Primary Care Provider MEJIA SNYDER Referring Unavailab le JOLLIFF, SHERITA ELIJAH Primary Care Unavailable MEJIA SNYDER Attending Unavailab le JOLLIFF, SHERITA ELIJAH Primary Care Unavailable IDANIALLIFF, SHERITA ELIJAH Primary Care Unavailable MEJIA SNYDER Attending Unavailab le JOLLIFF, SHERITA ELIJAH Primary Care Unavailable MEJIA SNYDER Referring Unavailab le JOLLIFF, SHERITA ELIJAH Primary Care Unavailable MEJIA SNYDER Referring Unavailab le Jolliff, Sherita Elijah Primary Care Provider Ced Mclean Referring Unavailable Ced Mclean Attending Unavailable Jolliff, Sherita S Primary Care Unavailable Jolliff, Sherita S Primary Care Unavailable Jolliff, Sherita S Referring Unavailable Jolliff, Sherita S Attending Unavailable Ced Mclean Referring Unavailable Ced Mclean Attending Unavailable Jolliff, Sherita S Primary Care Unavailable Jolliff, Sherita S Primary Care Unavailable Jolliff, Sherita S Attending Unavailable Jolliff, Sherita S Primary Care Unavailable Wialberto, Ced Referring Unavailable Ced Mclean Attending Unavailable Allergies Allergy Classification Reported Allergen(s) Allergy Type Date of Onset Reaction(s) Facility (3 sources) alendronate drug allergy 12-10-19 13 [facility] Work Phone: (3 sources) penicillin drug allergy 12-10-19 13 [facility] Work Phone: (10 sources) Alendronate Drug Allergy 07-19-19 21 unknown [facility] (10 sources) Penicillin V Drug Allergy 07-19-19 21 [facility] (9 sources) Penicillins; Translations: [PENICILLINS] Propensity to adverse reactions 01-07-20 08 [facility] Work Phone: (7 sources) Environmental [Other] Propensity to adverse reactions 01-23-20 11 Other: See Comments [facility] Work Phone: (2 sources) OTHER; Translations: [OTHER] Propensity to adverse reactions (disorder) 01-23-20 11 [facility] (1 source) Alendronate Drug Allergy 07-19-19 21 [facility]ository (1 source) Penicillin Drug Allergy 07-19-19 21 [facility] Medications Current Medications Medication Drug Class(es) Dates Sig (Normalized) Sig (Original) ascorbic acid 1000 mg oral tablet (5 sources) Vitamin C take 1 tablet by mouth once daily Ascorbic Acid (VITAMIN C) 1,000 mg tablet Take 1,000 mg by mouth once daily. Active Comment on above: Take 1,000 mg by juliet th once daily. calcium ascorbate 500 mg oral tablet (10 sources) Start: 09-02-2021 take 500 mg by mouth once daily Ascorbate Calcium (Vitamin C) Active 500 MG PO DAILY September 02, 2021 12:00am calcium carbonate 1500 mg / cholecalciferol 200 unt oral tablet (7 sources) Vitamin D Start: 02-26-2009 calcium carbonate/vitamin d3(CALCIUM 600 + D(3) 600 MG (1,500)-200 UNIT TAB) Take one(1) tablet twice daily. 0 02/26/2009 Active Comment on above: Take one(1) tablet t wice daily. cholecalciferol 1.25 mg oral capsule (10 sources) Vitamin D Start: 09-02-2021 take 1250 ug by mouth every week Cholecalciferol (Vitamin D3) Active 1250 MCG PO EVERY WEEK September 02, 2021 12:00am COMPOUNDED PRESCRIPTION (7 sources) COMPOUNDED PRESCRIPTION Allergy injection once weekly Active COMPOUNDED PRESC RIPTION Allergy injection once weekly 0 Active Comment on above: Allergy injection on ce weekly denosumab (5 sources) RANK Ligand Inhibitor denosumab (PROLIA SUBCUTANEOUS) Inject subcutaneously once every 6 months. Active denosumab (PROLI A SUBCUTANEOUS) Inject subcutaneously once every 6 months. 0 Active Comment on above: Inject subcutaneousl y once every 6 months. estradiol 0.1 mg/ml vaginal cream (7 sources) Estrogen Start: 12-27-2014 estradiol (ESTRACE) 0.01 % (0.1 mg/gram) vaginal cream use a small amount of cream to lower vagina qhs twice weekly 1 Tube 1 12/27/2014 Active Comment on above: use a small amount o f cream to lower vagina qhs twice weekly ferrous fumarate 90 mg oral tablet (10 sources) Start: 09-02-2021 Ferrous Fumarate Active 90 MG PO September 02, 2021 12:00am ipratropium bromide 0.042 mg/actuat metered dose nasal spray (15 sources) Anticholinergic Start: 09-02-2021 Ipratropium [place] Active 2 SPRAY INTRANASAL September 02, 2021 12:00am ipratropium brom dewey (ATROVENT) 42 mcg (0.06 %) nasal spray Use 2 Sprays in the nose four times daily. Active Comment on above: Use 2 Sprays in the nose four times daily. iron-vit C-vit I07-rbsyd acid 90 mg-120 mg-12 mcg-1,000 mcg tab (5 sources) iron-vit C-vit B 12-folic acid 90 mg-120 mg-12 mcg-1,000 mcg tab Take by mouth. Active iron-vit C-vit B 12-folic acid 90 mg-120 mg-12 mcg-1,000 mcg tab Take by mouth. 0 Active Comment on above: Take by mouth. meloxicam 15 mg oral tablet (20 sources) Nonsteroidal Anti-inflammatory Drug Start: 09-02-2021 take 15 mg by mouth once daily Meloxicam Active 15 MG PO DAILY September 02, 2021 12:00am Start: 07-19-2020 End: 09-02-2021 take 1-2 tablets by mouth once daily as needed for pain Meloxicam (Mobic) 7.5 mg tablet Discontinued 7.5 MG PO DAILY 60 July 19, 2020 1:00am September 02, 2021 3:02pm take 1-2 tabs daily prn for pain/inflammation; stop all other nsaids Start: 03-15-2020 End: 07-19-2020 take 15 mg by mouth once daily Meloxicam Discontinued 15 MG PO DAILY March 15, 2020 12:00am July 19, 2020 11:57am rosuvastatin calcium 10 mg oral tablet (20 sources) HMG-CoA Reductase Inhibitor Start: 08-11-2017 take 2 tablets by mouth once daily Rosuvastatin (Crestor) 10 mg tablet Active 20 MG PO DAILY August 11, 2017 1:00am Start: 01-22-2011 take 1 tablet by juliet th once daily at bedtime rosuvastatin (CRESTOR) 10 mg tablet Take 1 tablet by mouth daily at bedtime. 0 01/22/2011 Active take 1 tablet by juliet th once daily CRESTOR 20 MG TABS One tablet by mouth daily ROSUVASTATIN CALCIUM [id number] Braydon Lynne Comment on above: Take 1 tablet by juliet th daily at bedtime. sertraline 100 mg oral tablet (20 sources) Serotonin Reuptake Inhibitor Start: 8 End: 0 sertraline hcl(ZOLOFT 100 MG TAB) Take one(1) tablet daily. 0 01/07/2008 Active Comment on above: Take one(1) tablet roland perkins. vitamin b12 1 mg oral capsule (15 sources) Vitamin B12 Start: 2 take 1000 ug by mouth once daily Cyanocobalamin (Vitamin B-12) Active 1000 MCG PO DAILY September 02, 2021 12:00am take 2 tablets by mouth once lluu ly cyanocobalamin (VITAMIN B-12) 1,000 mcg tab Take 2,000 mcg by mouth once daily. Active Comment on above: Take 2,000 mcg by mo ut once daily. Completed/Discontinued Medications Medication Drug Class(es) Dates Sig (Normalized) Sig (Original) acetaminophen 325 mg oral tablet (10 sources) Start: 08-11-2017 End: 05-13-2018 take 1 tablet by mouth every six hours Acetaminophen (Tylenol) 325 mg tablet Discontinued 325 MG PO EVERY 6 HOURS August 11, 2017 1:00am May 13, 2018 10:07am acetaminophen 300 mg / codeine phosphate 30 mg oral tablet (10 sources) Opioid Agonist Start: 05-10-2018 End: 05-15-2018 take 1-2 tablets by mouth every six hours as needed Acetaminophen-Code ine Discontinued 1 - 2 TABLET PO EVERY 6 HOURS NEEDED 30 May 10, 2018 1:00am May 15, 2018 1:13am take 1-2 tabs every 6 hrs as needed, stop all other narcs and tylenol acetaminophen 325 mg / oxyCODONE hydrochloride 5 mg oral tablet (10 sources) Opioid Agonist Start: 01-21-2019 End: 01-26-2019 take 1 tablet by mouth every six hours as needed Oxycodone-Acetamin ophen Discontinued 1 TABLET PO EVERY 6 HOURS NEEDED 8 3 January 21, 2019 January 26, 2019 12:07am azithromycin 250 mg oral tablet (10 sources) Macrolide Antimicrobial Start: 05-06-2021 End: 09-02-2021 take 1 tablet by mouth once daily Azithromycin Discontinued 250 MG PO daily 6 May 06, 2021 1:00am September 02, 2021 3:01pm beginning 05/08/2021, 1 tablet daily until finished dexamethasone 4 mg oral tablet (10 sources) Corticosteroid Start: 05-06-2021 End: 09-02-2021 take 4 mg by mouth once daily Dexamethasone Discontinued 4 MG PO DAILY 5 May 06, 2021 1:00am September 02, 2021 3:01pm diazePAM 2 mg oral tablet (20 sources) Benzodiazepine Start: 02-08-2019 End: 04-05-2019 Diazepam (Valium) 2 mg tablet Discontinued 2 MG PO TWICE A DAY 2 March 29, 2019 3:59pm April 05, 2019 2:50pm take 1-2 tabs 30 minutes prior to exam Start: 10-13-2017 End: 04-06-2018 take 1 tablet by mouth every hour Diazepam (Valium) 2 mg tablet Discontinued 2 MG PO ONCE 2 October 13, 2017 12:00am April 06, 2018 3:40pm take one or two tabs an hour before MRI, no driving while on medication ibuprofen 200 mg oral tablet (10 sources) Nonsteroidal Anti-inflammatory Drug Start: 08-11-2017 End: 03-01-2020 take 1 tablet by mouth once daily Ibuprofen (Motrin Ib) 200 mg tablet Discontinued 200 MG PO DAILY August 11, 2017 1:00am March 01, 2020 3:17pm levoFLOXacin 500 mg oral tablet (10 sources) Quinolone Antimicrobial Start: 05-13-2018 End: 01-06-2019 take 500 mg by mouth once daily Levofloxacin Discontinued 500 MG PO DAILY May 13, 2018 1:00am January 06, 2019 8:28am pantoprazole 40 mg delayed release oral tablet (15 sources) Proton Pump Inhibitor Start: 01-06-2019 End: 01-03-2020 take 1 tablet by mouth once daily Pantoprazole (Protonix) 40 mg tablet,delayed release (DR/EC) Discontinued 40 MG PO DAILY January 06, 2019 12:00am January 03, 2020 9:26am Comment on above: Take 40 mg by mouth once daily. triamcinolone acetonide 40 mg/ml injectable suspension (5 sources) Corticosteroid Start: 07-19-2020 End: 07-19-2020 Kenalog (triamcinolone acetonide) 40 mg/mL suspension for injection Discontinued 40 MG INTRAARTIC ONCE 1 July 19, 2020 11:49am July 19, 2020 12:10pm Start: 11-02-2018 End: 03-15-2020 Kenalog (triamcinolone aceto nide) 40 mg/mL suspension for injection Discontinued 80 MG INTRAARTIC ONCE 2 March 15, 2020 3:31pm March 15, 2020 4:19pm Start: 11-03-2017 End: 11-03-2017 Kenalog (triamcinolone aceto nide) 10 mg/mL suspension for injection Discontinued 2 MG INTRAARTIC ONCE 0.2 November 03, 2017 10:33am November 03, 2017 11:02am Start: 08-11-2017 End: 08-11-2017 Kenalog (triamcinolone aceto nide) 10 mg/mL suspension for injection Discontinued 2 MG INTRAARTIC ONCE 0.2 August 11, 2017 4:25pm August 11, 2017 4:28pm zolpidem tartrate 5 mg oral tablet (10 sources) gamma-Aminobutyric Acid-ergic Agonist Start: 05-10-2018 End: 01-06-2019 take 5 mg by mouth at bedtime as needed Zolpidem Discontinued 5 MG PO AT BEDTIME NEEDED May 10, 2018 1:00am January 06, 2019 8:29am Problems Active Problems Problem Classification Problem Date Documented Da te Episodic/Chronic Disorders of lipid metabolism (1 source) Pure hypercholesterolemi a, unspecified; Translations: [Pure hypercholesterolemi a, unspecified] Onset: 02-22-2024 Chronic Fracture of lower limb (1 source) Stress fracture of left ankle; Translations: [Stress fracture, left ankle, initial encounter for fracture] Episodic Immunizations and screening for infectious disease (10 sources) Patient encounter status; Translations: [Encounter for screening for COVID-19] 05-06-2021 Episodic Nephritis; nephrosis; renal sclerosis (7 sources) Recurrent hematuria; Translations: [Recurrent and persistent hematuria with unspecified morphologic changes] Onset: 12-04-2013 12-04-2013 Chronic Osteoarthritis (10 sources) Arthritis of shoulder region joint; Translations: [Primary osteoarthritis, right shoulder] 05-10-2018 Chronic Osteoporosis (7 sources) Osteoporosis; Translations: [Age-related osteoporosis without current pathological fracture] Onset: 01-22-2011 01-22-2011 Chronic Other bone disease and musculoskeletal deformities (20 sources) Segmental and somatic dysfunction; Translations: [Segmental and somatic dysfunction of cervical region] 01-03-2020 Episodic Other connective tissue disease (10 sources) Impingement syndrome of shoulder region; Translations: [Impingement syndrome of left shoulder] 07-19-2020 Episodic Other connective tissue disease (10 sources) Subacromial impingement; Translations: [Impingement syndrome of right shoulder] 05-10-2018 Episodic Other connective tissue disease (10 sources) Tendinosis of right biceps brachii; Translations: [Other specified disorders of tendon, right shoulder] 05-10-2018 Episodic Other connective tissue disease (2 sources) Impingement syndrome of left shoulder; Translations: [Other affections of shoulder region, not elsewhere classified] Episodic Other lower respiratory disease (10 sources) Pulmonary edema; Translations: [Chronic pulmonary edema] 05-10-2018 Chronic Other nervous system disorders (2 sources) Other chronic pain; Translations: [Chronic pain of left ankle] Onset: 10-15-2022 Chronic Other non-traumatic joint disorders (2 sources) Hip pain; Translations: [Pain in left hip] Episodic Other non-traumatic joint disorders (3 sources) Chronic ankle pain; Translations: [Pain in left ankle and joints of left foot] Episodic Other non-traumatic joint disorders (1 source) Instability of joint of left ankle; Translations: [Other instability, left ankle] Episodic Other non-traumatic joint disorders (2 sources) Pain in left ankle and joints of left foot; Translations: [Chronic pain of left ankle] Onset: 10-15-2022 Episodic Respiratory failure; insufficiency; arrest (adult) (10 sources) Acute respiratory failure; Translations: [Acute respiratory failure with hypoxia] 05-10-2018 Episodic Spondylosis; intervertebral disc disorders; other back problems (20 sources) Cervical radiculopathy; Translations: [Radiculopathy, cervical region] 01-03-2020 Episodic Thyroid disorders (1 source) Nontoxic multinodular goiter; Translations: [Nontoxic multinodular goiter] Onset: 07-25-2024 Chronic Past or Other Problems Problem Classification Problem Date Documented Da te Episodic/Chronic Genitourinary symptoms and ill-defined conditions (7 sources) Microscopic hematuria; Translations: [Other microscopic hematuria] Onset: 01-10-2013 01-10-2013 Episodic Malaise and fatigue (7 sources) Fatigue; Translations: [Other fatigue] Onset: 01-10-2013 01-10-2013 Episodic Other and unspecified benign neoplasm (3 sources) Lipoma (clinical); Translations: [Benign lipomatous neoplasm of other sites] 12-29-2012 Episodic Other connective tissue disease (2 sources) Peroneal tendinitis; Translations: [Peroneal tendinitis, unspecified leg] Onset: 12-30-2016 01-14-2017 Episodic Other non-traumatic joint disorders (2 sources) Sinus tarsi syndrome; Translations: [Tarsal tunnel syndrome, unspecified lower limb] Onset: 12-30-2016 01-14-2017 Episodic Other non-traumatic joint disorders (2 sources) Ankle pain; Translations: [Pain in left ankle and joints of left foot] Onset: 12-30-2016 12-30-2016 Episodic Other non-traumatic joint disorders (1 source) Pain in left hip; Translations: [Left hip pain] Onset: 09-18-2022 Episodic Other nutritional; endocrine; and metabolic disorders (7 sources) Weight gain; Translations: [Abnormal weight gain] Onset: 01-10-2013 01-10-2013 Episodic Other screening for suspected conditions (not mental disorders or infectious disease) (1 source) Encounter for screening mammogram for malignant neoplasm of breast; Translations: [Encounter for screening mammogram for malignant neoplasm of breast] Onset: 12-31-2023 Episodic Other skin disorders (6 sources) Localized swelling, mass and lump, unspecified; Translations: [Localized swelling, mass and lump, unspecified] Resolved: 12-24-2012 12-29-2012 Episodic Results Test Name Value Interpretation Reference Range Facility Comprehensive Metabolic Prof [facility] 07-05-2024 Albumin [Mass/Vol] 4.0 g/dL Normal 3.2-5.0 [facility] Comment on above: Performed By: #### L [id number], L501.9520, [id number] #### [facility] [address] [place], [address] Albumin/Globulin [Mass ratio] 1.1 {ratio} Normal 0.9-2.4 [facility] Comment on above: Performed By: #### L [id number], [id number], [id number] #### [facility] [address] [place], [address] ALK P 75 U/L Normal 45-117 [facility] Comment on above: Performed By: #### L [id number], [id number], [id number] #### [facility] [address] [place], [address] ALT [Catalytic activity/Vol] 39 U/L Normal 13-56 [facility] Comment on above: Performed By: #### L [id number], [id number], [id number] #### [facility] [address] [place], [address] AST [Catalytic activity/Vol] 27 U/L Normal 15-37 [facility] Comment on above: Performed By: #### L [id number], [id number], [id number] #### [facility] [address] [place], [address] Bilirubin [Mass/Vol] 0.50 mg/dL Normal 0.20-1.00 [facility] Comment on above: Result Comment: For patients on eltrombopag therapy, use of Dimension [place] TBIL is not recommended. Performed By: #### L [id number], [id number], [id number] #### [facility] [address] [place], [address] BUN/CRE 19.4 RATIO Normal 10-20 [facility] Comment on above: Performed By: #### L [id number], [id number], [id number] #### [facility] [address] [place], [address] CA,Total 9.7 mg/dL Normal 8.5-10.1 [facility] Comment on above: Performed By: #### L [id number], [id number], [id number] #### [facility] [address] [place], [address] Chloride [Moles/Vol] 106 mmol/L Normal 98-107 [facility] Comment on above: Performed By: #### L [id number], [id number], [id number] #### [facility] [address] [place], [address] CO2 [Moles/Vol] 29.0 mmol/L Normal 21.0-32.0 [facility] Comment on above: Performed By: #### L [id number], [id number], [id number] #### [facility] [address] [place], [address] Creatinine [Mass/Vol] 0.93 mg/dL Normal 0.55-1.02 [facility] Comment on above: Result Comment: The validity of the calculated GFR GFRAA in patients over 70 years has not been determined. Clinical correlation is essential. Performed By: #### L [id number], [id number], [id number] #### [facility] [address] [place], [address] EST GFR - AA 77 mL/min Normal >60 [facility] Comment on above: Result Comment: Afri can Faroese GFR Calc Performed By: #### L [id number], [id number], [id number] #### [facility] [address] [place], [address] GAP 6 Normal 5-15 [facility] Comment on above: Performed By: #### L [id number], [id number], [id number] #### [facility] [address] [place], [address] GFR/1.73 sq M.predicted among non-blacks MDRD (S/P/Bld) [Vol rate/Area] 64 mL/min/{1.73_m2} Normal >60 [facility] Comment on above: Result Comment: Non- GFR Calc Performed By: #### L [id number], [id number], [id number] #### [facility] [address] [place], [address] Globulin (S) [Mass/Vol] 3.6 g/dL Normal 2.2-4.2 [facility] Comment on above: Performed By: #### L [id number], [id number], [id number] #### [facility] [address] [place], [address] Glucose [Mass/Vol] 105 mg/dL Normal 74-106 [facility] Comment on above: Result Comment: Fast ing Glucose result from 100 to 125 mg/dL suggests IMPAIRED HOMEOSTASIS per A.D.A. criteria. Performed By: #### L [id number], [id number], [id number] #### [facility] [address] [place], [address] Potassium [Moles/Vol] 4.3 mmol/L Normal 3.5-5.1 [facility] Comment on above: Performed By: #### L [id number], [id number], [id number] #### [facility] [address] [place], [address] Sodium [Moles/Vol] 141 mmol/L Normal 136-145 [facility] Comment on above: Performed By: #### L [id number], [id number], [id number] #### [facility] [address] [place], [address] T PROT 7.6 g/dL Normal 6.4-8.2 [facility] Comment on above: Performed By: #### L 500.4050, [id number], [id number] #### [facility] [address] [place], [address] Urea nitrogen [Mass/Vol] 18 mg/dL Normal 7-18 [facility] Comment on above: Performed By: #### L [id number], [id number], [id number] #### [facility] [address] [place], [address] Thyroid Stim Hormone (TSH)on 07-05-2024 TSH 2.140 uIU/mL Normal 0.358-3.740 [facility] Comment on above: Performed By: #### L [id number], [id number], [id number] #### [facility] [address] [place], [address] Vitamin D,25 Hydroxyon 07-05 Vitamin D 25-OH 65.4 ng/mL Normal [facility] Comment on above: Result Comment: Katie min D 25(OH) Status Range Deficiency <20 ng/mL (50nmol/L) Insufficiency 20 - 30 ng/mL (50 - 75 nmol/L) Sufficiency 30 - 100 ng/mL (75 - 250 nmol/L) Toxicity >100 ng/mL (>250 nmol/L) Performed By: #### L [id number], [id number], [id number] #### [facility] [address] [place], [address] AST(SGOT)on 01-26-2024 AST [Catalytic activity/Vol] 32 U/L Normal 15-37 [facility] Comment on above: Performed By: #### L 501.4100, L500.4100, L501.4405, L501.9520 #### [facility] [address] [place], [address] Alanine Aminotransferas (SGP T)on 01-26-2024 ALT [Catalytic activity/Vol] 34 U/L Normal 13-56 [facility] Comment on above: Performed By: #### L 501.4100, L500.4100, L501.4405, L501.9520 #### [facility] [address] [place], [address] Lipid Profileon 01-26-2024 Cholesterol [Mass/Vol] 168 mg/dL Normal 200 [facility] Comment on above: Result Comment: <200 mg/dL Desirable 200-240 mg/dL Borderline >240 mg/dL High Risk Performed By: #### L 501.4100, L500.4100, L501.4405, L501.9520 #### [facility] [address] [place], [address] Cholesterol in HDL [Mass/Vol] 49 mg/dL Normal [facility] Comment on above: Result Comment: The drugs N-Acetylcysteine and Metamizole may falsely depress this assay. Reference Range HDL <40 mg/dL Low HDL Cholesterol HDL >or= 60 mg/dL High HDL Cholesterol Performed By: #### L 501.4100, L500.4100, L501.4405, L501.9520 #### [facility] [address] [place], [address] Cholesterol in LDL [Mass/Vol] 76 mg/dL Normal 0-130 [facility] Comment on above: Performed By: #### L 501.4100, L500.4100, L501.4405, [id number] #### [facility] [address] [place], [address] Cholesterol in VLDL [Mass/Vol] 43 mg/dL High 5-40 [facility] Comment on above: Performed By: #### L 501.4100, L500.4100, L501.4405, L501.9520 #### [facility] [address] [place], [address] Triglyceride [Mass/Vol] 215 mg/dL High [facility] Comment on above: Result Comment: The drugs N-Acetylcysteine and Metamizole may falsely depress this assay. Serum Triglycerides Reference Interval Normal <150 mg/dL Borderline high 150 - 199 mg/dL High 200 - 499 mg/dL Very High > or = 500 mg/dL Performed By: #### L 501.4100, L500.4100, L501.4405, L501.9520 #### [facility] [address] [place], [address] Thyroid Stim Hormone (TSH)on 01-26-2024 TSH 1.610 uIU/mL Normal 0.358-3.740 [facility] Comment on above: Performed By: #### L 501.4100, L500.4100, L501.4405, L501.9520 #### [facility] [address] [place], [address] SCRN MAMM (CAD)W/JUAN CARLOS BILATo n 12-24-2023 SCRN MAMM (CAD)W/JUAN CARLOS BILAT [facility] Imaging Services [address] [place] [address] SCRN MAMM (CAD)W/JUAN CARLOS BILAT MR#: [id number] Acct: [id number] Name: PEE FISH Rep #: [id number] : 1955 F 68 From: Stef aldrich MD PCP: Dr. Sherita Hendricks MD Status: [facility] Study: SCRN MAMM (CAD)W/JUAN CARLOS BILAT Date of Exam: 12/13 07/08 Exam# [id number] Ordering Dr: Sherita Hendricks MD -[id number] MAMMOGRAPHY - BILATERAL SCREENING REASON FOR EXAM: Female, 68 years old. Routine annual screening examination. PERTINENT HISTORY: Non-contributory. TECHNIQUE: Digital bilateral breast juan carlos (3D mammographic acquisition) in the CC and MLO projections. 2-D mediolateral oblique (MLO) and craniocaudad (CC) views of both breasts were obtained. CAD: Full Field Digital Mammography with Computer Added Detection was performed. COMPARISON: Comparison is made with prior study dated 2022 and December 19, 2021. FINDINGS: Breast Composition: The breasts are almost entirely fatty. There are no dominant masses or suspicious calcifications. No other significant abnormalities are identified. There has been no significant change since the prior study. BI/SCRN MAMM (CAD)W/JUAN CARLOS BILAT IMPRESSION: Stable bilateral screening mammogram. Yearly follow-up mammogram recommended. (A) ASSESSMENT CATEGORY: BIRADS Category 1: Negative. A letter regarding these results will be sent to the patient by the facility within 30 days. Approximately 10% of breast cancers are not detected by mammography. A normal mammogram should not delay biopsy of a clinically suspicious abnormality. [id number] Electronically Signed: Stef Youngblood MD at 10:22 EDT , CC: Dr. Sherita Hendricks MD Management Department Chair: Signed Normal [facility] Basophil percentageOrdered B y: Ced Mclean on 09-01-2023 Bilirubin [Mass/Vol] 0.50 mg/dL 0.20-1.00 [facility] Comment on above: For patients on eltr ombopag therapy, use of Dimension [place] TBIL is not recommended. Chloride [Moles/Vol] 107 mmol/L 98-107 [facility] Glucose [Mass/Vol] 102 mg/dL 74-106 [facility] Comment on above: Fasting Glucose resu lt from 100 to 125 mg/dL suggests IMPAIRED HOMEOSTASIS per A.D.A. criteria. Potassium [Moles/Vol] 4.2 mmol/L 3.5-5.1 [facility] Protein [Mass/Vol] 7.4 g/dL 6.4-8.2 [facility] Sodium [Moles/Vol] 141 mmol/L 136-145 [facility] Comprehensive Metabolic Prof ilon 09-01-2023 Albumin [Mass/Vol] 3.9 g/dL Normal 3.2-5.0 [facility] Comment on above: Performed By: #### L 503.6150, L503.0105, L500.4050, L501.9520, L503.6550 #### [facility] [address] [place], [address] Albumin/Globulin [Mass ratio] 1.1 {ratio} Normal 0.9-2.4 [facility] Comment on above: Performed By: #### L 503.6150, L503.0105, L500.4050, L501.9520, L503.6550 #### [facility] [address] [place], [address] ALK P 48 U/L Normal 45-117 [facility] Comment on above: Performed By: #### L 503.6150, L503.0105, L500.4050, L501.9520, L503.6550 #### [facility] [address] [place], [address] ALT [Catalytic activity/Vol] 37 U/L Normal 13-56 [facility] Comment on above: Performed By: #### L 503.6150, L503.0105, L500.4050, L501.9520, L503.6550 #### [facility] [address] [place], [address] AST [Catalytic activity/Vol] 30 U/L Normal 15-37 [facility] Comment on above: Performed By: #### L 503.6150, L503.0105, L500.4050, L501.9520, L503.6550 #### [facility] [address] [place], [address] Bilirubin [Mass/Vol] 0.50 mg/dL Normal 0.20-1.00 [facility] Comment on above: Result Comment: For patients on eltrombopag therapy, use of Dimension [place] TBIL is not recommended. Performed By: #### L 503.6150, L503.0105, L500.4050, L501.9520, L503.6550 #### [facility] [address] [place], [address] BUN/CRE 16.4 RATIO Normal 10-20 [facility] Comment on above: Performed By: #### L 503.6150, L503.0105, L500.4050, L501.9520, L503.6550 #### [facility] [address] [place], [address] CA,Total 9.2 mg/dL Normal 8.5-10.1 [facility] Comment on above: Performed By: #### L 503.6150, L503.0105, L500.4050, L501.9520, L503.6550 #### [facility] [address] [place], [address] Chloride [Moles/Vol] 107 mmol/L Normal 98-107 [facility] Comment on above: Performed By: #### L 503.6150, L503.0105, L500.4050, L501.9520, L503.6550 #### [facility] [address] [place], [address] CO2 [Moles/Vol] 30.0 mmol/L Normal 21.0-32.0 [facility] Comment on above: Performed By: #### L 503.6150, L503.0105, L500.4050, L501.9520, L503.6550 #### [facility] [address] [place], [address] Creatinine [Mass/Vol] 0.91 mg/dL Normal 0.55-1.02 [facility] Comment on above: Result Comment: The validity of the calculated GFR GFRAA in patients over 70 years has not been determined. Clinical correlation is essential. Performed By: #### L 503.6150, L503.0105, L500.4050, L501.9520, L503.6550 #### [facility] [address] [place], [address] EST GFR - AA 79 mL/min Normal >60 [facility] Comment on above: Result Comment: Afri can Faroese GFR Calc Performed By: #### L 503.6150, L503.0105, L500.4050, L501.9520, L503.6550 #### [facility] [address] [place], [address] GAP 4 Low 5-15 [facility] Comment on above: Performed By: #### L 503.6150, L503.0105, L500.4050, L501.9520, L503.6550 #### [facility] [address] [place], [address] GFR/1.73 sq M.predicted among non-blacks MDRD (S/P/Bld) [Vol rate/Area] 65 mL/min/{1.73_m2} Normal >60 [facility] Comment on above: Result Comment: Non- GFR Calc Performed By: #### L 503.6150, L503.0105, L500.4050, L501.9520, L503.6550 #### [facility] [address] [place], [address] Globulin (S) [Mass/Vol] 3.5 g/dL Normal 2.2-4.2 [facility] Comment on above: Performed By: #### L 503.6150, L503.0105, L500.4050, L501.9520, L503.6550 #### [facility] [address] [place], [address] Glucose [Mass/Vol] 102 mg/dL Normal 74-106 [facility] Comment on above: Result Comment: Fast ing Glucose result from 100 to 125 mg/dL suggests IMPAIRED HOMEOSTASIS per A.D.A. criteria. Performed By: #### L 503.6150, L503.0105, L500.4050, L501.9520, L503.6550 #### [facility] [address] [place], [address] Potassium [Moles/Vol] 4.2 mmol/L Normal 3.5-5.1 [facility] Comment on above: Performed By: #### L 503.6150, L503.0105, L500.4050, L501.9520, L503.6550 #### [facility] [address] [place], [address] Sodium [Moles/Vol] 141 mmol/L Normal 136-145 [facility] Comment on above: Performed By: #### L 503.6150, L503.0105, L500.4050, L501.9520, L503.6550 #### [facility] [address] [place], [address] T PROT 7.4 g/dL Normal 6.4-8.2 [facility] Comment on above: Performed By: #### L 503.6150, L503.0105, L500.4050, L501.9520, L503.6550 #### [facility] [address] [place], [address] Urea nitrogen [Mass/Vol] 15 mg/dL Normal 7-18 [facility] Comment on above: Performed By: #### L 503.6150, L503.0105, L500.4050, L501.9520, L503.6550 #### [facility] [address] [place], [address] Ferritinon 09-01-2023 Ferritin [Mass/Vol] 68 ng/mL Normal 8-252 [facility] Comment on above: Performed By: #### L 501.4100, L500.4100, L501.4405, L501.9520 #### [facility] [address] [place], [address] Ironon 09-01-2023 Iron [Mass/Vol] 55 ug/dL Normal 50-170 [facility] Comment on above: Performed By: #### L 501.4100, L500.4100, L501.4405, L501.9520 #### [facility] [address] [place], [address] Iron measurement (mass/mass) Ordered By: Ced Mclean on 09-01-2023 Iron (Unsp spec) [Mass/Mass] 55 ug/dL 50-170 [facility] - Chemistry and C hemistry - challengeOrdered By: Ced Mclean on 09-01-2023 Albumin/Globulin [Mass ratio] 1.1 {ratio} 0.9-2.4 [facility] ALP [Catalytic activity/Vol] 48 U/L 45-117 [facility] ALT [Catalytic activity/Vol] 37 U/L 13-56 [facility] CO2 [Moles/Vol] 30.0 mmol/L 21.0-32.0 [facility] Cobalamin (Vitamin B12) [Mass/Vol] 740 pg/mL 211-911 [facility] Ferritin [Mass/Vol] 68 ng/mL 8-252 [facility] Globulin (S) [Mass/Vol] 3.5 g/dL 2.2-4.2 [facility] Urea nitrogen/Creatinine [Mass ratio] 16.4 mg/mg 10-20 [facility] No Panel InformationOrdered By: Ced Mclean on 09-01-2023 Estimated GFR (MDRD) Amer 79 mL/min >60 [facility] Comment on above: GFR Calc Estimated GFR (MDRD) Non-Af Amer 65 mL/min >60 [facility] Comment on above: Non- GFR Calc Serum or plasma calcium ramón urement (mass/volume)Ordered By: Ced Mclean on 09-01-2023 Calcium [Mass/Vol] 9.2 mg/dL 8.5-10.1 [facility] Serum or plasma creatinine m easurement (mass/volume)Ordered By: Ced Mclean on 09-01-2023 Creatinine [Mass/Vol] 0.91 mg/dL 0.55-1.02 [facility] Comment on above: The validity of the calculated GFR & GFRAA in patients over 70 years has not been determined. Clinical correlation is essential. Serum or plasma thyroid stim ulating hormone (TSH) measurement (units/volume)Ordered By: Ced Mclean on 09-01-2023 TSH Qn 1.41 uIU/mL 0.358-3.74 [facility] Serum or plasma urea nitroge n measurement (mass/volume)Ordered By: Ced Mclean on 09-01-2023 Urea nitrogen [Mass/Vol] 15 mg/dL 7-18 [facility] Thin prep Papanicolaou smear with manual screeningOrdered By: Ced Mclean on 09-01-2023 Thin prep Papanicolaou smear with manual screening 3.9 g/dL 3.2-5.0 [facility] Thin prep Papanicolaou smear with manual screening 30 U/L 15-37 [facility] Thin prep Papanicolaou smear with manual screening 4 5-15 [facility] Thyroid Stim Hormone (TSH)on 09-01-2023 TSH 1.41 uIU/mL Normal 0.358-3.74 [facility] Comment on above: Performed By: #### L 503.6150, L503.0105, L500.4050, L501.9520, L503.6550 #### [facility] [address] [place], [place], [address] Vitamin B12on 09-01-2023 Cobalamin (Vitamin B12) [Mass/Vol] 740 pg/mL Normal 211-911 [facility] Comment on above: Performed By: #### L 503.6150, L503.0105, L500.4050, L501.9520, L503.6550 #### [facility] [address] [place], [place], [address] Basophil percentageOrdered B y: Ced Mclean on 03-31-2023 Bilirubin [Mass/Vol] 0.40 mg/dL 0.20-1.00 [facility] Comment on above: For patients on eltr ombopag therapy, use of Dimension [place] TBIL is not recommended. Chloride [Moles/Vol] 107 mmol/L 98-107 [facility] Glucose [Mass/Vol] 120 mg/dL 74-106 [facility] Comment on above: Fasting Glucose resu lt from 100 to 125 mg/dL suggests IMPAIRED HOMEOSTASIS per A.D.A. criteria. Potassium [Moles/Vol] 3.6 mmol/L 3.5-5.1 [facility] Protein [Mass/Vol] 7.3 g/dL 6.4-8.2 [facility] Sodium [Moles/Vol] 140 mmol/L 136-145 [facility] Iron measurement (mass/mass) Ordered By: Ced Mclean on 03-31-2023 Iron (Unsp spec) [Mass/Mass] 63 ug/dL 50-170 [facility] - Chemistry and C hemistry - challengeOrdered By: Ced Mclean on 03-31-2023 ALP [Catalytic activity/Vol] 49 U/L 45-117 [facility] ALT [Catalytic activity/Vol] 47 U/L 13-56 [facility] CO2 [Moles/Vol] 29.0 mmol/L 21.0-32.0 [facility] Globulin (S) [Mass/Vol] 3.4 g/dL 2.2-4.2 [facility] Magnesium [Mass/Vol] 2.2 mg/dL 1.6-2.6 [facility] Urea nitrogen/Creatinine [Mass ratio] 18.5 mg/mg 10-20 [facility] No Panel InformationOrdered By: Ced Mclean on 03-31-2023 Estimated GFR (MDRD) Amer 84 mL/min >60 [facility] Comment on above: GFR Calc Estimated GFR (MDRD) Non-Af Amer 69 mL/min >60 [facility] Comment on above: Non- GFR Calc Thyroid Stimulating Hormone (TSH) 1.46 uIU/mL 0.358-3.74 [facility] Vitamin D 25-Hydroxy 60.3 ng/mL [facility] Comment on above: Vitamin D 25(OH) Sta tus Range Deficiency <20 ng/mL (50nmol/L) Insufficiency 20 - 30 ng/mL (50 - 75 nmol/L) Sufficiency 30 - 100 ng/mL (75 - 250 nmol/L) Toxicity >100 ng/mL (>250 nmol/L) Serum or plasma albumin ramón urement (mass/volume)Ordered By: Ced Mclean on 03-31-2023 Albumin [Mass/Vol] 3.9 g/dL 3.2-5.0 [facility] Serum or plasma albumin/glob ulin mass ratioOrdered By: Ced Mclean on 03-31-2023 Albumin/Globulin [Mass ratio] 1.1 {ratio} 0.9-2.4 [facility] Serum or plasma calcium ramón urement (mass/volume)Ordered By: Ced Mclean on 03-31-2023 Calcium [Mass/Vol] 9.5 mg/dL 8.5-10.1 [facility] Serum or plasma creatinine m easurement (mass/volume)Ordered By: Ced Mclean on 03-31-2023 Creatinine [Mass/Vol] 0.87 mg/dL 0.55-1.02 [facility] Comment on above: The validity of the calculated GFR & GFRAA in patients over 70 years has not been determined. Clinical correlation is essential. Serum or plasma ferritin britton surement (mass/volume)Ordered By: Ced Mclean on 03-31-2023 Ferritin [Mass/Vol] 76 ng/mL 8 [facility] Serum or plasma urea nitroge n measurement (mass/volume)Ordered By: Ced Mclean on 03-31-2023 Urea nitrogen [Mass/Vol] 16 mg/dL 7-18 [facility] Thin prep Papanicolaou smear with manual screeningOrdered By: Ced Mclean on 03-31-2023 Thin prep Papanicolaou smear with manual screening 36 U/L 15 [facility] Thin prep Papanicolaou smear with manual screening 4 5-15 [facility] Basophil percentageOrdered B y: Sherita Hendricks on 02-06-2023 Creatinine [Mass/Vol] 1.0 mg/dL 0.55-1.02 [facility] - Chemistry and C hemistry - challengeOrdered By: Sherita Hendricks on 02-06-2023 GFR/1.73 sq M.predicted among non-blacks MDRD (S/P/Bld) [Vol rate/Area] 58.0000 mL/min/{1.73_m2} >60 [facility] Basophil percentageOrdered B y: Anish Fuchs on 02-04-2023 WBC (Bld) [#/Vol] 8.4 10*3/uL 4.4-11.0 [facility] Blood erythrocytes count (nu mber/volume)Ordered By: Anish Fuchs on 02-04-2023 RBC (Bld) [#/Vol] 4.78 10*6/uL 4.2-5.4 [facility] Blood hemoglobin measurement (mass/volume)Ordered By: Anish Fuchs on 02-04-2023 Hemoglobin (Bld) [Mass/Vol] 12.9 g/dL 12.0-15.0 [facility] Blood platelet mean volumeOr dered By: Anish Fuchs on 02-04-2023 Platelet mean volume (Bld) [Entitic vol] 10.9 fL 6.2-12.0 [facility] Determination of erythrocyte mean corpuscular volume (MCV)Ordered By: Anish Fuchs on 02-04-2023 MCV (RBC) [Entitic vol] 84.1 fL 81-99 [facility] Hematocrit Auto (Bld) [Volum e fraction]Ordered By: Anish Fuchs on 02-04-2023 Hematocrit (Bld) [Volume fraction] 40.2 % 37-47 [facility] Iron measurement (mass/mass) Ordered By: Anish Fuchs on 02-04-2023 Iron (Unsp spec) [Mass/Mass] 38 ug/dL 50-170 [facility] - Hematology and Cell countsOrdered By: Anish Fuchs on 02-04-2023 Erythrocyte distribution width (RBC) [Entitic vol] 42.7 fL 35.1-43.9 [facility] Erythrocyte distribution width (RBC) [Ratio] 13.8 % 11.6-14.6 [facility] MCH (RBC) [Entitic mass] 27.0 pg 27.0-32.0 [facility] MCHC Auto (RBC) [Mass/Vol]Or dered By: Anish Fuchs on 02-04-2023 MCHC (RBC) [Mass/Vol] 32.1 g/dL 32-36 [facility] Platelets bldOrdered By: Brad Fuchs on 02-04-2023 Platelets (Bld) [#/Vol] 153 10*3/uL 150-450 [facility] PEE FISH ([id number]) 1955 F Date Time Provider Department 12/04/22 DHAVAL CALVO V DO RGWSTR During your visit today, we recorded the following information about you: Shanita Haynes [facility] 12/04/2022 11:54 AM Signed Patient requesting disk of MRI done on 10/15/2022.She can be reached at [phone]. Thank you! 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 - pantoprazole DR (PROTONIX) 40 mg tablet Take 40 mg by mouth once daily. - Ascorbic Acid (VITAMIN C) 1,000 mg tablet Take 1,000 mg by mouth once daily. - cyanocobalamin (VITAMIN B-12) 1,000 mcg tab Take 2,000 mcg by mouth once daily. - ipratropium bromide (ATROVENT) 42 mcg (0.06 %) nasal spray Use 2 Sprays in the nose four times daily. - iron-vit C-vit K66-qvwbo acid 90 mg-120 mg-12 mcg-1,000 mcg tab Take by mouth. - estradiol (ESTRACE) 0.01 % (0.1 mg/gram) vaginal cream use a small amount of cream to lower vagina qhs twice weekly - COMPOUNDED PRESCRIPTION Allergy injection once weekly - rosuvastatin (CRESTOR) 10 mg tablet Take 1 tablet by mouth daily at bedtime. - calcium carbonate/vitamin d3(CALCIUM 600 + D(3) 600 MG (1,500)-200 UNIT TAB) Take one(1) tablet twice daily. - sertraline hcl(ZOLOFT 100 MG TAB) Take one(1) tablet daily. Problem List As Of Date 12/04/2022 Noted Resolved Osteoporosis [M81.0] 01/22/2011 Weight gain [R63.5] 01/10/2013 Hematuria, microscopic [R31.29] 01/10/2013 Fatigue [R53.83] 01/10/2013 Recurrent and persistent hematuria (HCC) [N02.9]12/04/2013 Encounter Status:Closed by BERNADETTE TEREZA on 12/19/22 Normal [facility] XR Ankle - left AP and Later al and obliqueon 11-13-2022 IMPRESSION: No acute pathology. Management Department Chair: KISHA Transcribe Date/Time: Nov 13 2022 9:23A Dictated by : DHAVAL CALVO DO This examination was interpreted and the report reviewed and electronically signed by: DHAVAL CALVO DO on Nov 13 2022 9:23AM [facility] * * *Final Report* * * DATE OF EXAM: Nov 12 2022 11:21AM MDO 5298 - XR ANKLE 3V AP/LAT/OBL LT / PROCEDURE REASON: multiple diagnoses * * * * Physician Interpretation * * * * EXAM(s): XR ANKLE 3V AP/LAT/OBL LT EXAM DATE/TIME: 11/12/2022 11:21 AM HISTORY: 66 years old Clinical information: Chronic pain of left ankle Chronic pain of left ankle LEFT ANKLE PAIN Standing Weight bearing if possible TECHNIQUE: Images: XR ANKLE 3V AP/LAT/OBL LT Comparison: None. RESULT: Findings: Bone density appears well-preserved. No fractures or dislocations are seen. [facility] Provider, [facility] [place] - 11/13/2022 * * *Final Report* * * DATE OF EXAM: Nov 12 2022 11:21AM MDO 5298 - XR ANKLE 3V AP/LAT/OBL LT / PROCEDURE REASON: multiple diagnoses * * * * Physician Interpretation * * * * EXAM(s): XR ANKLE 3V AP/LAT/OBL LT EXAM DATE/TIME: 11/12/2022 11:21 AM HISTORY: 66 years old Clinical information: Chronic pain of left ankle Chronic pain of left ankle LEFT ANKLE PAIN Standing Weight bearing if possible TECHNIQUE: Images: XR ANKLE 3V AP/LAT/OBL LT Comparison: None. RESULT: Findings: Bone density appears well-preserved. No fractures or dislocations are seen. IMPRESSION IMPRESSION: No acute pathology. Management Department Chair: KISHA Transcribe Date/Time: Nov 13 2022 9:23A Dictated by : DHAVAL CALVO DO This examination was interpreted and the report reviewed and electronically signed by: DHAVAL CALVO DO on Nov 13 2022 9:23AM EST [facility] XR Ankle - left AP and Later al and obliqueOrdered By: [facility]cf Provider on 11-13-2022 [facility] XR ANKLE 3V AP/LAT/OBL LTon 11-12-2022 XR ANKLE 3V AP/LAT/OBL LT * * *Final Report* * * DATE OF EXAM: Nov 12 2022 11:21AM [facility] 5298 - XR ANKLE 3V AP/LAT/OBL LT / PROCEDURE REASON: multiple diagnoses * * * * Physician Interpretation * * * * EXAM(s): XR ANKLE 3V AP/LAT/OBL LT EXAM DATE/TIME: 11/12/2022 11:21 AM HISTORY: 66 years old Clinical information: Chronic pain of left ankle Chronic pain of left ankle LEFT ANKLE PAIN Standing Weight bearing if possible TECHNIQUE: Images: XR ANKLE 3V AP/LAT/OBL LT Comparison: None. RESULT: Findings: Bone density appears well-preserved. No fractures or dislocations are seen. IMPRESSION: No acute pathology. Management Department Chair: KISHA Transcribe Date/Time: Nov 13 2022 9:23A Dictated by : DHAVAL CALVO DO This examination was interpreted and the report reviewed and electronically signed by: DHAVAL CALVO DO on Nov 13 2022 9:23AM EST [id number] [facility] XR Ankle - left AP and Later al and obliqueon 11-12-2022 Radiology Study observation (narrative) [facility] MRI ANKLE WO IVCON LEFTon [facility] MRI ANKLE WO IVCON LTon 05-0 MRI ANKLE WO IVCON LT * * *Final Report* * * DATE OF EXAM: Oct 15 2022 8:15AM REBECCA [id number] - MRI ANKLE WO IVCON LT / PROCEDURE REASON: multiple diagnoses * * * * Physician Interpretation * * * * EXAMINATION: MRI ANKLE WO IVCON LT HISTORY: Chronic pain of left ankle Chronic pain of left ankle NKI NO SX PAIN LATERAL ASPECT LT ANKLE RADIATING TO ANTERIOR Per EMR: Worsening chronic ankle pain with multiple areas of focal tenderness. Clinical concern for talar stress fracture. TECHNIQUE: Routine MRI of the left ankle/hindfoot without contrast COMPARISON: None RESULT: TENDONS Achilles tendon: Intact Posterior tibial tendon: Intact Flexor digitorum longus tendon: Intact Flexor hallucis longus tendon: Intact Peroneal tendons: Mild tendinosis and tiny foci of interstitial tearing in the peroneus longus tendon at the level lateral malleolus. Peroneus brevis is intact. Extensor tendons: Intact LIGAMENTS Lateral: Anterior talofibular ligament: Intact Calcaneofibular ligament: Intact Posterior talofibular ligament: Intact Medial: Deltoid ligament: Intact Spring ligament: Intact Syndesmosis: Anterior-inferior tibiofibular ligament: Intact Posterior tibiofibular ligament: Intact BONES AND JOINTS Joints/cartilage: The talar dome is intact. Chondral thinning small dorsal osteophytes most pronounced at intermediate cuneiform-navicular articulation mild chondral thinning in the first through third tarsometatarsal joints. No joint effusion. Bone Marrow: No fracture or suspicious marrow replacing lesions. Joint fluid: No sizable joint effusion or synovitis. OTHER Plantar fascia: Within normal limits. Sinus tarsi and tarsal tunnel: Within normal limits. Other: No other significant additional findings. Localizer images: No significant additional findings. IMPRESSION: Mild peroneus longus tendinosis with tiny foci of interstitial tearing. Minimal midfoot osteoarthritis. Management Department Chair: PSCB Transcribe Date/Time: Oct 15 2022 9:14A Dictated by : CARIE JETER MD This examination was interpreted and the report reviewed and electronically signed by: TEDDY CASTILLO MD on Oct 15 2022 2:24PM EST [id number] Normal [facility] CNOVon 09-18-2022 CNOV Office Visit (JOSE) ---- PEE FISH ([id number]) 1955 F Date Time Provider Department 09/18/22 1:30 PM MEJIA SNYDER During your visit today, we recorded the following information about you: Mejia Snyder DO 09/18/2022 3:49 PM Signed Reason for Visit/Chief Complaint Pee Fish is a 66 year old female who presents today for a new evaluation of following complaint: Patient presents with: Left Hip - Pain History of Present Illness: PAIN EVALUATION 09/18/2022 1316 Pain Level: 2 Pain Location: Hip-Left Description: Aching;Dull;Sharp Duration Amount of Time: 2 Duration Units: Years Frequency: Intermittent HPI: Pee Fish is a 66 year old female presenting today with L hip pain and left ankle pain. Pain has been increasing the last couple years. 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 Pt likes to walk for exercise and has difficulty completing long intervals. States has sharp pain in ankle that Dr. Snyder has seen her for before at [facility] and then hip pain as well. Pain history is noted as above. Xray done today Previous Treatments: Ice: No Heat: No Brace: No NSAIDs: No Injections: No Surgeries: No Physical Therapy: No Review of Systems: Patient did not have, and does not currently have, any weight loss, malaise, fever, chills, headache, chest pain, chest pressure, palpitations, cough, shortness of breath, orthopnea, paroxsymal nocturnal dyspnea, nausea, vomiting, diarrhea, constipation, melena, hematochezia, urinary difficulties, prolonged bleeding, easily bruising, heat or cold intolerance, new onset joint pain or swelling, new onset extremity weakness or numbness, new onset auditory or visual disturbances, lightheadedness, dizziness, partial loss of consciousness or full loss of consciousness. Current Outpatient Medications on File Prior to Visit Medication Sig estradiol (ESTRACE) 0.01 % (0.1 mg/gram) vaginal cream use a small amount of cream to lower vagina qhs twice weekly COMPOUNDED PRESCRIPTION Allergy injection once weekly rosuvastatin (CRESTOR) 10 mg ORAL tablet Take 1 tablet by mouth daily at bedtime. calcium carbonate/vitamin d3(CALCIUM 600 + D(3) 600 MG (1,500)-200 UNIT TAB) Take one(1) tablet twice daily. sertraline hcl(ZOLOFT 100 MG TAB) Take one(1) tablet daily. No current facility-administer ed medications on file prior to visit. ALLERGIES Allergen Reactions Environmental [Othe* Other: See Comments Grass, pollen, tree's, dust..... Penicillins Rash Physical Exam: Vitals: There were no vitals taken for this visit. Psych: Pleasant, good affect and mood General Appearance: Well appearing, alert, in no acute distress, well-hydrated, well nourished.. Skin: Skin color, texture, turgor normal, no suspicious rashes or lesions. Peripheral Pulses: Normal. Neurologic: Gait normal. Reflexes normal and symmetric. Sensation grossly intact.. Lymph Nodes: No cervical lymphadenopathy, No supraclavicular lymphadenopathy, No axillary lymphadenopathy., and No inguinal lymphadenopathy.. Respiratory: No recent pulmonary infection, hemoptysis, chronic cough, or shortness of breath at rest Rheumatologic: Joint deformities: left hip and ankle pain Right Ankle Exam Right ankle exam is normal. Tenderness The patient is experiencing no tenderness. Range of Motion The patient has normal right ankle ROM. Dorsiflexion: normal Plantar flexion: normal Eversion: normal Inversion: normal Muscle Strength Dorsiflexion: 5/5 Plantar flexion: 5/5 Anterior tibial: 5/5 Posterior tibial: 5/5 Gastrocsoleus: 5/5 Peroneal muscle: 5/5 Tests Anterior drawer: negative Varus tilt: negative Other Erythema: absent Sensation: normal Pulse: present Left Ankle Exam Tenderness The patient is experiencing tenderness in the ATF, CF, deltoid and medial malleolus. Swelling: mild Range of Motion Dorsiflexion: abnormal Plantar flexion: abnormal Eversion: abnormal Inversion: abnormal Muscle Strength Dorsiflexion: 4/5 Plantar flexion: 4/5 Anterior tibial: 4/5 Posterior tibial: 4/5 Gastrocsoleus: 4/5 Peroneal muscle: 4/5 Tests Anterior drawer: negative Varus tilt: negative Other Erythema: absent Sensation: normal Pulse: present Imaging: Last XR Hip/Pelvis - Impression Only XR HIP GENERAL 3V PELV/AP/LAT LEFT Exam End: 09/18/2022 12:54 PM (Final result) Impression: IMPRESSION: Left hip grossly unremarkable. Management Department Chair: KISHA Transcribe Date/Time: Sep 18 2022 3:33P ... Assessment and Plan: Impression: Encounter Diagnosis ICD-10-CM 1. Chronic pain of left ankle M25.572 MRI ANKLE WO IVCON LEFT G89.29 2. Stress fracture of left ankle, initial encounter M84.372A 3. Ankle instability, left M25.372 Plan: Today, (more content not included)... Normal [facility] XR HIP 3V PELV+ AP/LAT LTon 09-18-2022 XR HIP 3V PELV+ AP/LAT LT * * *Final Report* * * DATE OF EXAM: Sep 18 2022 12:54PM [id number] [id number] - XR HIP 3V PELV+ AP/LAT LT / PROCEDURE REASON: Left hip pain * * * * Physician Interpretation * * * * HISTORY: PT STATES LEFT HIP PAIN NO INJURY.. Left hip pain . TECHNIQUE: XR HIP 3V PELV+ AP/LAT LT Laterality: LEFT Number of different views (projections): 3 COMPARISON: None RESULT: Left hip is maintained. No fracture. Bony pelvis intact. SI joints appear unremarkable. Suture material and surgical clips in the pelvis. IMPRESSION: Left hip grossly unremarkable. Management Department Chair: PSCAgustin Transcribe Date/Time: Sep 18 2022 3:33P Dictated by : KATELYN GARCIA MD This examination was interpreted and the report reviewed and electronically signed by: KATELYN GARCIA MD on Sep 18 2022 3:35PM EST [id number] Normal [facility] XR HIP GENERAL 3V PELV/AP/LA T LEFTon 09-18-2022 [facility] Basophil percentageOrdered B y: Dr. Hendricks on 09-10-2022 Cholesterol [Mass/Vol] 170 mg/dL <200 [facility] Comment on above: <200 mg/dL Desirable 200-240 mg/dL Borderline >240 mg/dL High Risk Triglyceride [Mass/Vol] 255 mg/dL <199 [facility] Comment on above: The drugs N-Acetylcy steine and Metamizole may falsely depress this assay.Serum Triglycerides Reference Interval Normal <150 mg/dL Borderline high 150 - 199 mg/dL High 200 - 499 mg/dL Very High > or = 500 mg/dL Laboratory - Chemistry and C hemistry - challengeOrdered By: Dr. Hendricks on 09-10-2022 ALT [Catalytic activity/Vol] 35 U/L 13-56 [facility] Serum or plasma cholesterol in HDL measurement (mass/volume)Ordered By: Dr. Hendricks on 09-10-2022 Cholesterol in HDL [Mass/Vol] 47 mg/dL >40 [facility] Comment on above: The drugs N-Acetylcy steine and Metamizole may falsely depress this assay. Reference Range HDL <40 mg/dL Low HDL Cholesterol HDL >or= 60 mg/dL High HDL Cholesterol Serum or plasma cholesterol in VLDL measurement (mass/volume)Ordered By: Dr. Hendricks on 09-10-2022 Cholesterol in VLDL [Mass/Vol] 51 mg/dL 5-40 [facility] Serum or plasma low density lipoprotein (LDL) cholesterol measurement (mass/volume)Ordered By: Dr. Hendricks on 09-10-2022 Cholesterol in LDL [Mass/Vol] 72 mg/dL 0-130 [facility] Thin prep Papanicolaou smear with manual screeningOrdered By: Dr. Hendricks on 09-10-2022 Thin prep Papanicolaou smear with manual screening 29 U/L 15-37 [facility] Basophil percentageOrdered B y: Dr. Mclean on 08-19-2022 Bilirubin [Mass/Vol] 0.40 mg/dL 0.20-1.00 [facility] Comment on above: For patients on eltr ombopag therapy, use of Dimension [place] TBIL is not recommended. Chloride [Moles/Vol] 103 mmol/L 98-107 [facility] Glucose [Mass/Vol] 83 mg/dL 74-106 [facility] Potassium [Moles/Vol] 3.6 mmol/L 3.5-5.1 [facility] Protein [Mass/Vol] 7.6 g/dL 6.4-8.2 [facility] Sodium [Moles/Vol] 139 mmol/L 136-145 [facility] Iron measurement (mass/mass) Ordered By: Dr. Mclean on 08-19-2022 Iron (Unsp spec) [Mass/Mass] 62 ug/dL 50-170 [facility] Laboratory - Chemistry and C hemistry - challengeOrdered By: Dr. Mclean on 08-19-2022 ALP [Catalytic activity/Vol] 52 U/L 45-117 [facility] ALT [Catalytic activity/Vol] 31 U/L 13-56 [facility] CO2 [Moles/Vol] 29.0 mmol/L 21.0-32.0 [facility] Cobalamin (Vitamin B12) [Mass/Vol] 751 pg/mL 211-911 [facility] Globulin (S) [Mass/Vol] 3.6 g/dL 2.2-4.2 [facility] Urea nitrogen/Creatinine [Mass ratio] 19.8 mg/mg 10-20 [facility] No Panel InformationOrdered By: Dr. Mclean on 08-19-2022 Estimated GFR (MDRD) Amer 85 mL/min >60 [facility] Comment on above: GFR Calc Estimated GFR (MDRD) Non-Af Amer 70 mL/min >60 [facility] Comment on above: Non- GFR Calc Thyroid Stimulating Hormone (TSH) 1.71 uIU/mL 0.358-3.74 [facility] Vitamin D 25-Hydroxy 67.2 ng/mL [facility] Comment on above: Vitamin D 25(OH) Sta tus Range Deficiency <20 ng/mL (50nmol/L) Insufficiency 20 - 30 ng/mL (50 - 75 nmol/L) Sufficiency 30 - 100 ng/mL (75 - 250 nmol/L) Toxicity >100 ng/mL (>250 nmol/L) Serum or plasma albumin ramón urement (mass/volume)Ordered By: Dr. Mclean on 08-19-2022 Albumin [Mass/Vol] 4.0 g/dL 3.2-5.0 [facility] Serum or plasma albumin/glob ulin mass ratioOrdered By: Dr. Mclean on 08-19-2022 Albumin/Globulin [Mass ratio] 1.1 {ratio} 0.9-2.4 [facility] Serum or plasma calcium ramón urement (mass/volume)Ordered By: Dr. Mclean on 08-19-2022 Calcium [Mass/Vol] 9.2 mg/dL 8.5-10.1 [facility] Serum or plasma creatinine m easurement (mass/volume)Ordered By: Dr. Mclean on 08-19-2022 Creatinine [Mass/Vol] 0.86 mg/dL 0.55-1.02 [facility] Comment on above: The validity of the calculated GFR & GFRAA in patients over 70 years has not been determined. Clinical correlation is essential. Serum or plasma ferritin britton surement (mass/volume)Ordered By: Dr. Mclean on 08-19-2022 Ferritin [Mass/Vol] 68 ng/mL 8-252 [facility] Serum or plasma urea nitroge n measurement (mass/volume)Ordered By: Dr. Mclean on 08-19-2022 Urea nitrogen [Mass/Vol] 17 mg/dL 7-18 [facility] Thin prep Papanicolaou smear with manual screeningOrdered By: Dr. Mclean on 08-19-2022 Thin prep Papanicolaou smear with manual screening 31 U/L 15-37 [facility] Thin prep Papanicolaou smear with manual screening 7 5-15 [facility] No Panel InformationOrdered By: Dr. Arias on 05-21-2022 Influenza Types A,B Direct FA (CY) [facility] Basophil percentageon 2021 Bilirubin [Mass/Vol] 0.40 mg/dL 0.20-1.00 [facility] Work Phone: Comment on above: For patients on eltr ombopag therapy, use of Dimension [place] TBIL is not recommended. Chloride [Moles/Vol] 104 mmol/L 98-107 [facility] Work Phone: Glucose [Mass/Vol] 91 mg/dL 74-106 [facility] Work Phone: Potassium [Moles/Vol] 3.7 mmol/L 3.5-5.1 [facility] Work Phone: Protein [Mass/Vol] 7.8 g/dL 6.4-8.2 [facility] Work Phone: Sodium [Moles/Vol] 139 mmol/L 136-145 [facility] Work Phone: Iron measurement (mass/mass) on 02-04-2022 Iron (Unsp spec) [Mass/Mass] 53 ug/dL 50-170 [facility] Work Phone: Laboratory - Chemistry and C hemistry - challengeon 02-04-2022 ALP [Catalytic activity/Vol] 60 U/L 45-117 [facility] Work Phone: ALT [Catalytic activity/Vol] 41 U/L 13-56 [facility] Work Phone: CO2 [Moles/Vol] 29.0 mmol/L 21.0-32.0 [facility] Work Phone: Globulin (S) [Mass/Vol] 3.8 g/dL 2.2-4.2 [facility] Work Phone: Magnesium [Mass/Vol] 2.3 mg/dL 1.6-2.6 [facility] Work Phone: Urea nitrogen/Creatinine [Mass ratio] 15.2 mg/mg 10-20 [facility] Work Phone: No Panel Informationon 02-04 Estimated GFR (MDRD) Amer 72 mL/min >60 [facility] Work Phone: Comment on above: GFR Calc Estimated GFR (MDRD) Non-Af Amer 60 mL/min >60 [facility] Work Phone: Comment on above: Non- GFR Calc Thyroid Stimulating Hormone (TSH) 1.39 uIU/mL 0.358-3.74 [facility] Work Phone: Vitamin D 25-Hydroxy 63.2 ng/mL [facility] Work Phone: Comment on above: Vitamin D 25(OH) Sta tus Range Deficiency <20 ng/mL (50nmol/L) Insufficiency 20 - 30 ng/mL (50 - 75 nmol/L) Sufficiency 30 - 100 ng/mL (75 - 250 nmol/L) Toxicity >100 ng/mL (>250 nmol/L) Serum or plasma albumin ramón urement (mass/volume)on 02-04-2022 Albumin [Mass/Vol] 4.0 g/dL 3.2-5.0 [facility] Work Phone: Serum or plasma albumin/glob ulin mass ratioon 02-04-2022 Albumin/Globulin [Mass ratio] 1.1 {ratio} 0.9-2.4 [facility] Work Phone: Serum or plasma calcium ramón urement (mass/volume)on 02-04-2022 Calcium [Mass/Vol] 9.5 mg/dL 8.5-10.1 [facility] Work Phone: Serum or plasma creatinine m easurement (mass/volume)on 02-04-2022 Creatinine [Mass/Vol] 0.99 mg/dL 0.55-1.02 [facility] Work Phone: Comment on above: The validity of the calculated GFR & GFRAA in patients over 70 years has not been determined. Clinical correlation is essential. Serum or plasma ferritin britton surement (mass/volume)on 02-04-2022 Ferritin [Mass/Vol] 60 ng/mL 8 [facility] Work Phone: Serum or plasma urea nitroge n measurement (mass/volume)on 02-04-2022 Urea nitrogen [Mass/Vol] 15 mg/dL 7-18 [facility] Work Phone: Thin prep Papanicolaou smear with manual screeningon 02-04-2022 Thin prep Papanicolaou smear with manual screening 38 U/L 15-37 [facility] Work Phone: Thin prep Papanicolaou smear with manual screening 6 5-15 [facility] Work Phone: Basophil percentageon 2021 Bilirubin [Mass/Vol] 0.30 mg/dL 0.20-1.00 [facility] Work Phone: Comment on above: For patients on eltr ombopag therapy, use of Dimension [place] TBIL is not recommended. Chloride [Moles/Vol] 106 mmol/L 98-107 [facility] Work Phone: Glucose [Mass/Vol] 101 mg/dL 74-106 [facility] Work Phone: Comment on above: Fasting Glucose resu lt from 100 to 125 mg/dL suggests IMPAIRED HOMEOSTASIS per A.D.A. criteria. Potassium [Moles/Vol] 4.0 mmol/L 3.5-5.1 [facility] Work Phone: Protein [Mass/Vol] 7.5 g/dL 6.4-8.2 [facility] Work Phone: Sodium [Moles/Vol] 141 mmol/L 136-145 [facility] Work Phone: Iron measurement (mass/mass) on 09-17-2021 Iron (Unsp spec) [Mass/Mass] 48 ug/dL 50-170 [facility] Work Phone: Laboratory - Chemistry and C hemistry - challengeon 09-17-2021 ALP [Catalytic activity/Vol] 90 U/L 45-117 [facility] Work Phone: ALT [Catalytic activity/Vol] 30 U/L 13-56 [facility] Work Phone: CO2 [Moles/Vol] 30.0 mmol/L 21.0-32.0 [facility] Work Phone: Cobalamin (Vitamin B12) [Mass/Vol] 488 pg/mL 211-911 [facility] Work Phone: Globulin (S) [Mass/Vol] 4.0 g/dL 2.2-4.2 [facility] Work Phone: Urea nitrogen/Creatinine [Mass ratio] 18.3 mg/mg 10-20 [facility] Work Phone: No Panel Informationon 09-17 Estimated GFR (MDRD) Amer 68 mL/min >60 [facility] Work Phone: Comment on above: GFR Calc Estimated GFR (MDRD) Non-Af Amer 56 mL/min >60 [facility] Work Phone: Comment on above: Non- GFR Calc Thyroid Stimulating Hormone (TSH) 2.87 uIU/mL 0.358-3.74 [facility] Work Phone: Vitamin D 25-Hydroxy 84.6 ng/mL [facility] Work Phone: Comment on above: Vitamin D 25(OH) Sta tus Range Deficiency <20 ng/mL (50nmol/L) Insufficiency 20 - 30 ng/mL (50 - 75 nmol/L) Sufficiency 30 - 100 ng/mL (75 - 250 nmol/L) Toxicity >100 ng/mL (>250 nmol/L) Serum or plasma albumin ramón urement (mass/volume)on 09-17-2021 Albumin [Mass/Vol] 3.5 g/dL 3.2-5.0 [facility] Work Phone: Serum or plasma albumin/glob ulin mass ratioon 09-17-2021 Albumin/Globulin [Mass ratio] 0.9 {ratio} 0.9-2.4 [facility] Work Phone: Serum or plasma calcium ramón urement (mass/volume)on 09-17-2021 Calcium [Mass/Vol] 9.4 mg/dL 8.5-10.1 [facility] Work Phone: Serum or plasma creatinine m easurement (mass/volume)on 09-17-2021 Creatinine [Mass/Vol] 1.04 mg/dL 0.55-1.02 [facility] Work Phone: Comment on above: The validity of the calculated GFR & GFRAA in patients over 70 years has not been determined. Clinical correlation is essential. Serum or plasma ferritin britton surement (mass/volume)on 09-17-2021 Ferritin [Mass/Vol] 57 ng/mL 8-252 [facility] Work Phone: Serum or plasma urea nitroge n measurement (mass/volume)on 09-17-2021 Urea nitrogen [Mass/Vol] 19 mg/dL 7-18 [facility] Work Phone: Thin prep Papanicolaou smear with manual screeningon 09-17-2021 Thin prep Papanicolaou smear with manual screening 23 U/L 15-37 [facility] Work Phone: Thin prep Papanicolaou smear with manual screening 5 5-15 [facility] Work Phone: Absolute lymphocyte counton 05-28-2021 Lymphocytes Auto (Unsp spec) [#/Vol] 1.31 10*3/uL 0.83-4.51 [facility] Work Phone: Basophil percentageon 2020 Bilirubin [Mass/Vol] 0.20 mg/dL 0.20-1.00 [facility] Work Phone: Comment on above: For patients on eltr ombopag therapy, use of Dimension [place] TBIL is not recommended. Chloride [Moles/Vol] 104 mmol/L 98-107 [facility] Work Phone: Eosinophils/100 WBC (Bld) 2.0 % 0-5 [facility] Work Phone: Glucose [Mass/Vol] 82 mg/dL 74-106 [facility] Work Phone: Comment on above: Please note revised GLUCOSE reference range effective 2017. Neutrophils (Bld) [#/Vol] 3.5 10*3/uL 2.0-7.7 [facility] Work Phone: Potassium [Moles/Vol] 3.5 mmol/L 3.5-5.1 [facility] Work Phone: Protein [Mass/Vol] 7.4 g/dL 6.4-8.2 [facility] Work Phone: Sodium [Moles/Vol] 140 mmol/L 136-145 [facility] Work Phone: WBC (Bld) [#/Vol] 5.4 10*3/uL 4.4-11.0 [facility] Work Phone: Blood erythrocytes count (nu mber/volume)on 05-28-2021 RBC (Bld) [#/Vol] 4.36 10*6/uL 4.2-5.4 [facility] Work Phone: Blood hemoglobin measurement (mass/volume)on 05-28-2021 Hemoglobin (Bld) [Mass/Vol] 11.5 g/dL 12.0-15.0 [facility] Work Phone: Blood lymphocytes/100 leukoc yteson 05-28-2021 Lymphocytes/100 WBC (Bld) 24.1 % 19-41 [facility] Work Phone: Blood monocytes/100 leukocyt eson 05-28-2021 Monocytes/100 WBC (Bld) 8.1 % 0-10 [facility] Work Phone: Blood platelet mean volumeon 05-28-2021 Platelet mean volume (Bld) [Entitic vol] 11.6 fL 6.2-12.0 [facility] Work Phone: Determination of erythrocyte mean corpuscular volume (MCV)on 05-28-2021 MCV (RBC) [Entitic vol] 83.3 fL 81-99 [facility] Work Phone: Hematocrit Auto (Bld) [Volum e fraction]on 05-28-2021 Hematocrit (Bld) [Volume fraction] 36.3 % 37-47 [facility] Work Phone: Iron measurement (mass/mass) on 05-28-2021 Iron (Unsp spec) [Mass/Mass] 42 ug/dL 50-170 [facility] Work Phone: Laboratory - Chemistry and C hemistry - challengeon 05-28-2021 ALP [Catalytic activity/Vol] 58 U/L 45-117 [facility] Work Phone: ALT [Catalytic activity/Vol] 30 U/L 13-56 [facility] Work Phone: CO2 [Moles/Vol] 27.0 mmol/L 21.0-32.0 [facility] Work Phone: Cobalamin (Vitamin B12) [Mass/Vol] 319 pg/mL 211-911 [facility] [facility] Work Phone: Globulin (S) [Mass/Vol] 3.8 g/dL 2.2-4.2 [facility] Work Phone: Urea nitrogen/Creatinine [Mass ratio] 16.2 mg/mg 10-20 [facility] Work Phone: Laboratory - Hematology and Cell countson 05-28-2021 Basophils/100 WBC (Unsp spec) 0.4 % 0-1 [facility] Work Phone: Erythrocyte distribution width (RBC) [Entitic vol] 45.1 fL 35.1-43.9 [facility] Work Phone: Erythrocyte distribution width (RBC) [Ratio] 14.8 % 11.6-14.6 [facility] Work Phone: Immature granulocytes/100 WBC (Bld) 0.400 % 0.0-0.9 [facility] Work Phone: Comment on above: IG% - Immature Granu locytes (promyelocytes, myelocytes and metamyelocytes) > 1% indicates that a LEFT SHIFT is Present. MCH (RBC) [Entitic mass] 26.4 pg 27.0-32.0 [facility] Work Phone: Neutrophils/100 WBC (Bld) 65.0 % 47-70 [facility] Work Phone: Nucleated RBC/100 WBC (Bld) [Ratio] 0 % 0-5 [facility] Work Phone: MCHC Auto (RBC) [Mass/Vol]on 05-28-2021 MCHC (RBC) [Mass/Vol] 31.7 g/dL 32-36 [facility] Work Phone: No Panel Informationon 05-28 Estimated GFR (MDRD) Amer 93 mL/min >60 [facility] Work Phone: Comment on above: GFR Calc Estimated GFR (MDRD) Non-Af Amer 76 mL/min >60 [facility] Work Phone: Comment on above: Non- GFR Calc Thyroid Stimulating Hormone (TSH) 1.26 uIU/mL 0.358-3.74 [facility] Work Phone: Vitamin D 25-Hydroxy 68.2 ng/mL [facility] Work Phone: Comment on above: Vitamin D 25(OH) Sta tus Range Deficiency <20 ng/mL (50nmol/L) Insufficiency 20 - 30 ng/mL (50 - 75 nmol/L) Sufficiency 30 - 100 ng/mL (75 - 250 nmol/L) Toxicity >100 ng/mL (>250 nmol/L) Platelets bldon 05-28-2021 Platelets (Bld) [#/Vol] 191 10*3/uL 150-450 [facility] Work Phone: Serum or plasma albumin ramón urement (mass/volume)on 05-28-2021 Albumin [Mass/Vol] 3.6 g/dL 3.2-5.0 [facility] Work Phone: Serum or plasma albumin/glob ulin mass ratioon 05-28-2021 Albumin/Globulin [Mass ratio] 0.9 {ratio} 0.9-2.4 [facility] Work Phone: Serum or plasma calcium ramón urement (mass/volume)on 05-28-2021 Calcium [Mass/Vol] 9.5 mg/dL 8.5-10.1 [facility] Work Phone: Serum or plasma creatinine m easurement (mass/volume)on 05-28-2021 Creatinine [Mass/Vol] 0.80 mg/dL 0.55-1.02 [facility] Work Phone: Comment on above: The validity of the calculated GFR & GFRAA in patients over 70 years has not been determined. Clinical correlation is essential. Serum or plasma ferritin britton surement (mass/volume)on 05-28-2021 Ferritin [Mass/Vol] 35 ng/mL 8-252 [facility] Work Phone: Serum or plasma urea nitroge n measurement (mass/volume)on 05-28-2021 Urea nitrogen [Mass/Vol] 13 mg/dL 7-18 [facility] Work Phone: Thin prep Papanicolaou smear with manual screeningon 05-28-2021 Thin prep Papanicolaou smear with manual screening 24 U/L 15-37 [facility] Work Phone: Thin prep Papanicolaou smear with manual screening 9 5-15 [facility] Work Phone: Office Visiton 12-30-2016 Protein mass conc Done [facility] Work Phone: Tobacco smoking status NHIS Never smoker [facility] Work Phone: Office Visiton 12-24-2012 Documentation of current medications (procedure) Done Invalid Interpretation Code [facility] Work Phone: 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 never smoker Invalid Interpretation Code [facility] Work Phone: No Panel Information Influenza Types A,B Direct FA (CY) [facility] Work Phone: Vital Signs Date Time Vital Sign Value Performing Clinician Facility 12-30-2012 09:50-0400 BMI (Body Mass Index) 26.87 kg/m2 [facility] Work Phone: 12-30-2012 09:50-0400 Body Temperature 98.6 [degF] [facility] ter [facility] Work Phone: 12-30-2012 09:50-0400 BP Diastolic 87 mm[Hg] [facility] Work Phone: 12-30-2012 09:50-0400 BP Systolic 129 mm[Hg] [facility] er [facility] Work Phone: 12-30-2012 09:50-0400 BSA (Body Surface Area) 1.68 m2 [facility] Work Phone: 12-30-2012 09:50-0400 Pulse (Heart Rate) 75 /min [facility] Work Phone: 12-30-2012 09:50-0400 Respiratory Rate 14 /min [facility] [address] [facility] Work Phone: 12-30-2012 09:50-0400 Weight 66.41 kg Brandi Min [facility] er [facility] Work Phone: 12-09-2012 13:270400 Height 157.48 cm [facility] Work Phone: Encounters Encounter Date Encounter Type Care Provider Facility Start: 07-05-2024 End: 07-05-2024 ambulatory [facility] Facility:[facility] Start: 03-22-2024 End: 03-22-2024 [facility] Start: 01-26-2024 End: 01-26-2024 ambulatory [facility] Facility:[facility] Start: 12-24-2023 End: 12-24-2023 ambulatory [facility] [place] Facility:[facility] Start: 09-01-2023 End: 09-01-2023 ambulatory [facility] Work Phone: Start: 09-01-2023 End: 09-01-2023 Patient encounter procedure [facility] Work Phone: Start: 09-01-2023 End: 09-01-2023 ambulatory [facility] Facility:[facility] Start: 03-31-2023 End: 03-31-2023 ambulatory [facility] Work Phone: Start: 03-31-2023 End: 03-31-2023 Patient encounter procedure [facility] Work Phone: Start: 02-06-2023 End: 02-06-2023 ambulatory [facility] Work Phone: Start: 02-06-2023 End: 02-06-2023 Patient encounter procedure [facility], [facility] Work Phone: Start: 02-04-2023 End: 02-04-2023 ambulatory [facility] Work Phone: Start: 02-04-2023 End: 02-04-2023 Patient encounter procedure [facility], [place] Work Phone: Start: 2022 End: 2022 ambulatory [facility] Work Phone: Start: 2022 End: 2022 Patient encounter procedure [facility] Work Phone: Start: 12-04-2022 Telephone encounter Dhaval Coburn DO Work Phone: Radiology Comment on above: cd pecan picker Start: 11-26-2022 ambulatory Marilynjayro james DO Work Phone: Orthopaedics Comment on above: X-ray Start: 11-12-2022 End: 11-12-2022 ambulatory MARILYNJayro SNYDER Facility:[facility] Start: 11-12-2022 End: 11-12-2022 Subsequent hospital visit by physician [facility] Work Phone: Radiology Comment on above: Chronic pain of left ankle [M25.572, G89.29] Start: 10-15-2022 End: 10-15-2022 ambulatory SHERITA HENDRICKS Facility:[facility] Start: 10-15-2022 End: 10-15-2022 Subsequent hospital visit by physician Andrez [facility] Ws (I-Stat/1.5t) Work Phone: Radiology Comment on above: Chronic pain of left ankle [M25.572, G89.29] Start: 09-18-2022 End: 09-18-2022 ambulatory MARILYNJayro SNYDER Facility:[facility] Start: 09-18-2022 End: 09-18-2022 Patient encounter procedure Mejia Snyder DO Work Phone: Orthopaedics Comment on above: Chronic pain of left ankle (Primary Dx); Stress fracture of left ankle, initial encounter; Ankle instability, left Start: 09-18-2022 End: 09-18-2022 Subsequent hospital visit by physician [facility] Work Phone: Radiology Comment on above: Left hip pain [M25.5 52] Start: 09-10-2022 End: 09-10-2022 [facility] Start: 09-10-2022 End: 09-10-2022 Orders Only Mejia Snyder DO Work Phone: Orthopaedics Comment on above: Left hip pain (Prima ry Dx) Start: 08-19-2022 End: 08-19-2022 Patient encounter procedure [facility] Start: 05-21-2022 End: 05-21-2022 ambulatory [facility] Work Phone: Start: 05-21-2022 End: 05-21-2022 [facility] Start: 02-04-2022 End: 02-04-2022 ambulatory [facility] Work Phone: Start: 02-04-2022 End: 02-04-2022 [facility] Start: 12-19-2021 End: 12-19-[address] Sherita Hendricks Work Phone: [facility] D[facility]ometry Start: 09-17-2021 End: 09-17-[address] Sherita Hendricks [facility] Start: 09-02-2021 End: 09-02-[address] Sherita Hendricks Work Phone: [facility] Start: 08-30-2021 End: 08-30-[address] Sherita Hendricks Work Phone: [facility], [facility] Start: 05-28-[address] Sherita Hendricks Work Phone: [facility] Procedures Date Procedure Procedure Detail Performing Clinician Start: 02-06-2023 Computed tomography of abdomen and pelvis with contrast Start: 2022 Screening mammography Start: 11-12-2022 Radex ankle complete minimum 3 views Mejia Snyder DO Work Phone: Start: 10-15-2022 Mri any jt lower ext rem w/o contrast matrl Marilynjayro Snyder DO Work Phone: Start: 09-18-2022 Radex hip unilateral with pelvis 2-3 views Marilynjayor Snyder DO Work Phone: Start: 12-19-2021 Dual energy X-ray absorptiometry Dr. Sherita Hendricks Work Phone: Start: 12-19-2021 Screening mammography Roland Hendricks Work Phone: Start: 08-30-[address] Sherita Hendricks Work Phone: Start: 01-08-2017 Colonoscopy Mejia Steve alvarado DO Work Phone: Start: 12-30-2016 End: 01-14-2017 Arthrocentesis aspir&/inj interm jt/burs w/o us Marilynjayro Snyder Work Phone: Start: 12-27-2014 Mammography Mejia Martinezroque alvarado DO Work Phone: Start: 12-24-2012 Remove lesion, back or flank [facility] Work Phone: Start: 06-14-2012 Lipid 1996 panel - S tereso or Plasma Mri (I-Stat/1.5t) Work Phone: Influenza Types A,B Direct FA (CY) Influenza Types A,B Direct FA (CY) Plan of Treatment Date Care Activity Detail Author Start: 01-21-2029 Urine microalbumin profile DTaP,Tdap,Td Vaccine (3 - Td or Tdap) [facility] Start: 02-14-2024 Covid-19 Vaccine () Covid-19 Vaccine () [facility] Start: 02-14-2024 Influenza vaccination Influenza Vacc ine (#1) [facility] Start: 06-15-2023 Advance Directive Discussion Advance Directive Discussion [facility] Start: 02-13-2023 Covid-19 Vaccine (3 - 2023-24 season) Covid-19 Vaccine ( season) [facility] Start: 02-13-2023 Influenza vaccination C [facility] Start: 07-24-2022 Pneumococcal Vaccine : 65+ (2 - PCV) Pneumococcal Vaccine: 65+ (2 - PCV) [facility] Start: 07-24-2022 Pneumococcal Vaccine : 65+ (2 of 2 - PCV) Pneumococcal Vaccine: 65+ (2 of 2 - PCV) [facility] Start: 06-15-2022 ADVANCE DIRECTIVE DISCUSSION ADVANCE DIRECTIVE DISCUSSION [facility] Start: 06-15-2022 DEPRESSION ASSESSMENT DEPRESSION ASS ESSMENT [facility] Start: 02-13-2022 Influenza vaccination INFLUENZA (#1) [facility] Start: 01-08-2022 Colonoscopy COLONOSCOPY [facility] Start: 01-08-2022 COLORECTAL CANCER SCREENING COLORECTAL CANCER SCREENING [facility] Start: 01-08-2022 Screening for malign ant neoplasm of colon [facility] Start: 12-21-2020 BONE DENSITY BONE DENSITY [facility] Start: 12-21-2020 Bone Density Screening Bone Density Screening [facility] Start: 12-21-2020 PNEUMOCOCCAL: 65+ (1 - PCV) PNEUMOCOCCAL: 65+ (1 - PCV) [facility] Start: 12-21-2020 Screening for osteoporosis Bone Density Screening [facility] Start: 10-10-2020 COVID-19 VACCINE (3 - Booster for Pfizer series) COVID-19 VACCINE (3 - Booster for Pfizer series) [facility] Start: 06-14-2017 Lipid 1996 panel - Serum or Plasma Lipid Screening [facility] Start: 06-14-2017 Lipid panel [facility] Scre[facility] Start: 06-14-2017 LIPID SCREEN LIPID SCREEN [facility] Start: 12-30-2016 End: 12-30-2016 X-ray exam of ankle X-Ray, Ankle [facility] Work Phone: Start: 12-28-2015 Mammography [facility] Start: 12-28-2015 Screening for malign ant neoplasm of breast Mammogram Screening [facility] Start: 2015 RSV Vaccine (1 - 1-d ose 60+ series) RSV Vaccine (1 - 1-dose 60+ series) [facility] Start: 12-08-2015 DIABETES SCREEN DIABETES SCREEN [facility] Start: 12-08-2015 Diabetes Screening Diabetes Screenin g [facility] Start: 12-21-2005 SHINGRIX VACCINE (1 of 2) SHINGRIX VACCINE (1 of 2) [facility] Start: 12-21-2000 COLOGUARD (FIT-DNA) COLOGUARD (FIT-D NA) [facility] Start: 12-21-[address] COLONOGRAPHY [facility] Start: 12-21-2000 FECAL OCCULT BLOOD FECAL OCCULT BLOO D [facility] Start: 12-21-2000 Screening for malign ant neoplasm of colon [facility] Start: 12-21-2000 SIGMOIDOSCOPY SIGMOIDOSCOPY [facility] Start: 12-21-1974 Urine microalbumin profile DTAP,TDAP,TD (1 - Tdap) [facility] Start: 12-21-1973 Anxiety Screening Anxiety Screening [facility] Start: 12-21-1973 Depression Screening Depression Scre ing [facility] Start: 12-21-1973 HEPATITIS C SCREENING HEPATITIS C [facility] Start: 12-21-1973 Hepatitis C screening Hepatitis C [facility] Start: 06-23-1956 COVID-19 VACCINE (#1) COVID-19 VACCI NE (#1) [facility] End: 10-18-2023 MRI ANKLE WO IVCON LEFT MRI ANKLE WO IVCON LEFT Radiology Routine Chronic pain of left ankle 1 Occurrences starting 09/18/2022 until 10/18/2023 [facility] Work Phone: Comment on above: 1 Occurrences starti ng 09/18/2022 until 10/18/2023 End: 10-10-2023 XR HIP GENERAL 3V PELV/AP/LAT LEFT XR HIP GENERAL 3V PELV/AP/LAT LEFT Radiology Routine Left hip pain 1 Occurrences starting 09/10/2022 until 10/10/2023 [facility] Work Phone: Comment on above: 1 Occurrences starti ng 09/10/2022 until 10/10/2023 [facility] c [facility] Immunizations Immunization Date Immunization Notes Care Provider Brenden polk 03-20-2022 influenza virus vaccine, unspecified formulation Mri (I-Stat/1.5t) Work Phone: [facility] 01-21-2019 tetanus toxoid, redu kandy diphtheria toxoid, and acellular pertussis vaccine, adsorbed Dr. Sherita Hendricks Work Phone: [facility] 05-12-2018 influenza, injectabl e, quadrivalent, preservative free [facility] 05-12-2018 influenza, seasonal, injectable Dr. Sherita Hendricks Work Phone: [facility] Payers Date Payer Category Payer Private Health Insurance [id number] 2023 Self-pay [id number] 2019 Unknown MMO MMO [employer] PPO [id number] 2019-Present [phone] [address] [place] [address] PPO [id number] 2010 Unknown [id number] Medicare MEDICARE A ONLY . [id number] Unknown [id number] Unknown [id number] 62 Unknown [id number] 62 Unknown [id number] 62 Unknown [id number] Social History Date Type Detail Facility Start: 09-02-2021 End: 09-02-2021 Tobacco smoking status NHIS Unknown if ever smoked [facility] Start: 1955 Sex Assigned At Female W [facility] Start: 01-22-2011 Tobacco smoking stat us NHIS Never smoked tobacco [facility] Work Phone: Start: 01-22-2011 Tobacco use and exposure Smokeless tobacco non-user [facility] Work Phone: Start: 01-29-2022 End: 09-18-2022 Alcohol intake Current non-drinker of alcohol (finding) [facility] Start: 1955 Sex Assigned At Not on file [facility] Start: 09-18-2022 History of Social function [facility] Start: 09-18-2022 Tobacco use panel [facility] National Score (1-100), lower number is lower risk 48 [facility] Medical Equipment Procedure Code Equipment Code Equipment Origin al Text Equipment Identifier Dates KIT,PROX TENODESIS FDA Start: 05-10-2018 KIT,PROX TENODESIS FDA Start: 05-10-2018 KIT,PROX TENODESIS FDA Start: 05-10-2018 KIT,PROX TENODESIS FDA Start: 05-10-2018 KIT,PROX TENODESIS FDA Start: 05-10-2018 KIT,PROX TENODESIS FDA Start: 05-10-2018 KIT,PROX TENODESIS FDA Start: 05-10-2018 KIT,PROX TENODESIS FDA Start: 05-10-2018 KIT,PROX TENODESIS FDA Start: 05-10-2018 KIT,PROX TENODESIS FDA Start: 05-10-2018 Goals Date Patient Goal Desired Activity /State Clinical Notes 09-18-2022 to 12-04-2022 Telephone Encounter - YONI Ramirez - 12/04/2022 4:06 PM EDTTelephone Encounter - Shanita Lanier - 12/04/2022 11:53 AM EDTBrandi Arnett Tech - 11/12/2022 11:10 AM EDT Note Date & Type Note Facility 12-04-2022 Miscellaneous Notes CD 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 Thank you! Shanita Lanier documented in this encounter [facility] 11-12-2022 Note HNO ID: [id number] Author: Meenakshi Lechuga Service: Radiology Author Type: Director Prospect Type: Progress Notes Filed: 11/12/2022 11:21 AM Note Text: Radiology Service Progress Note PATIENT NAME: Pee Fish DATE OF SERVICE: November 12, 2022 TIME: 11:21 AM PATIENT IDENTITY VERIFICATION COMPLETED USING TWO (2) IDENTIFIERS: Name and Date of confirmed by patient verbally. FALL SCREENING: Has the patient had 2 falls in the last year or 1 fall with injury or currently using an Ambulatory Assistive Device (Walker, Cane, Wheelchair, Crutches, etc.)? No PATIENT GENDER DATA: Female. status: : No status: NO. PATIENT RELEVANT IMPLANT DATA REVIEWED: Not Applicable RADIOLOGY DEPARTMENT: General X-ray: Exam(s) Completed: Lower Extremity X-Ray(s): Ankle, Left and Wt. Bearing PERIPHERAL IV DATA: Not applicable SIGNED BY: Meenakshi Lechuga November 12, 2022 11:21 AM [facility] 11-12-2022 History of Presen t illness Narrative Radiology Service Progress Note PATIENT NAME: Pee Fish DATE OF SERVICE: November 12, 2022 TIME: 11:21 AM PATIENT IDENTITY VERIFICATION COMPLETED USING TWO (2) IDENTIFIERS: Name and Date of confirmed by patient verbally. FALL SCREENING: Has the patient had 2 falls in the last year or 1 fall with injury or currently using an Ambulatory Assistive Device (Walker, Cane, Wheelchair, Crutches, etc.)? No PATIENT GENDER DATA: Female. status: : No status: NO. PATIENT RELEVANT IMPLANT DATA REVIEWED: Not Applicable RADIOLOGY DEPARTMENT: General X-ray: Exam(s) Completed: Lower Extremity X-Ray(s): Ankle, Left and Wt. Bearing PERIPHERAL IV DATA: Not applicable SIGNED BY: Meenakshi Lechuga November 12, 2022 11:21 AM documented in this encounter [facility] 10-15-2022 Note HNO ID: [id number] Author: RT Malia(R) Service: ? Author Type: Technologist Type: Progress Notes Filed: 10/15/2022 7:57 AM Note Text: Radiology Service Progress Note PATIENT NAME: Pee Fish DATE OF SERVICE: October 15, 2022 TIME: 7:57 AM PATIENT IDENTITY VERIFICATION COMPLETED USING TWO (2) IDENTIFIERS: Name and Date of confirmed by patient verbally. FALL SCREENING: Has the patient had 2 falls in the last year or 1 fall with injury or currently using an Ambulatory Assistive Device (Walker, Cane, Wheelchair, Crutches, etc.)? No PATIENT GENDER DATA: Female. status: : No status: NO. PATIENT RELEVANT IMPLANT DATA REVIEWED: Yes RADIOLOGY DEPARTMENT: MR; Exam(s) Completed: Lower MSK: Ankle/Hind Foot, left PERIPHERAL IV DATA: Not applicable SIGNED BY: RT Malia(Suresh) October 15, 2022 7:57 AM [facility] 10-15-2022 History of Presen t illness Narrative Radiology Service Progress Note PATIENT NAME: Pee Fish DATE OF SERVICE: October 15, 2022 TIME: 7:57 AM PATIENT IDENTITY VERIFICATION COMPLETED USING TWO (2) IDENTIFIERS: Name and Date of confirmed by patient verbally. FALL SCREENING: Has the patient had 2 falls in the last year or 1 fall with injury or currently using an Ambulatory Assistive Device (Walker, Cane, Wheelchair, Crutches, etc.)? No PATIENT GENDER DATA: Female. status: : No status: NO. PATIENT RELEVANT IMPLANT DATA REVIEWED: Yes RADIOLOGY DEPARTMENT: MR; Exam(s) Completed: Lower MSK: Ankle/Hind Foot, left PERIPHERAL IV DATA: Not applicable SIGNED BY: RT Malia(Suresh) October 15, 2022 7:57 AM documented in this encounter [facility] 09-18-2022 Note HNO ID: [id number] Author: Sherita Galicia Ma Service: ? Author Type: ? Type: Progress Notes Filed: 09/18/2022 3:49 PM Note Text: PT ASSESSMENT - CASTING ROOM Pee presents for Application of boot. Applied low fracture walker to Left ankle. Patient electronically signed Yandel CHO. Patient has been instructed in Care and proper application of brace. Sherita Galicia Ma [facility] 09-18-2022 Note HNO ID: [id number] Author: Mejia Snyder, DO Service: ? Author Type: Physician Type: Progress Notes Filed: 09/18/2022 3:49 PM Note Text: Reason for Visit/Chief Complaint Pee Fish is a 66 year old female who presents today for a new evaluation of following complaint: Patient presents with: Left Hip - Pain History of Present Illness: PAIN EVALUATION 09/18/2022 1316 Pain Level: 2 Pain Location: Hip-Left Description: Aching;Dull;Sharp Duration Amount of Time: 2 Duration Units: Years Frequency: Intermittent HPI: Pee Fish is a 66 year old female presenting today with L hip pain and left ankle pain. Pain has been increasing the last couple years. 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 Pt likes to walk for exercise and has difficulty completing long intervals. States has sharp pain in ankle that Dr. Snyder has seen her for before at [facility] and then hip pain as well. Pain history is noted as above. Xray done today Previous Treatments: Ice: No Heat: No Brace: No NSAIDs: No Injections: No Surgeries: No Physical Therapy: No Review of Systems: Patient did not have, and does not currently have, any weight loss, malaise, fever, chills, headache, chest pain, chest pressure, palpitations, cough, shortness of breath, orthopnea, paroxsymal nocturnal dyspnea, nausea, vomiting, diarrhea, constipation, melena, hematochezia, urinary difficulties, prolonged bleeding, easily bruising, heat or cold intolerance, new onset joint pain or swelling, new onset extremity weakness or numbness, new onset auditory or visual disturbances, lightheadedness, dizziness, partial loss of consciousness or full loss of consciousness. Current Outpatient Medications on File Prior to Visit Medication Sig estradiol (ESTRACE) 0.01 % (0.1 mg/gram) vaginal cream use a small amount of cream to lower vagina qhs twice weekly COMPOUNDED PRESCRIPTION Allergy injection once weekly rosuvastatin (CRESTOR) 10 mg ORAL tablet Take 1 tablet by mouth daily at bedtime. calcium carbonate/vitamin d3(CALCIUM 600 + D(3) 600 MG (1,500)-200 UNIT TAB) Take one(1) tablet twice daily. sertraline hcl(ZOLOFT 100 MG TAB) Take one(1) tablet daily. No current facility-administered medications on file prior to visit. ALLERGIES Allergen Reactions Environmental [Othe* Other: See Comments Grass, pollen, tree's, dust..... Penicillins Rash Physical Exam: Vitals: There were no vitals taken for this visit. Psych: Pleasant, good affect and mood General Appearance: Well appearing, alert, in no acute distress, well-hydrated, well nourished.. Skin: Skin color, texture, turgor normal, no suspicious rashes or lesions. Peripheral Pulses: Normal. Neurologic: Gait normal. Reflexes normal and symmetric. Sensation grossly intact.. Lymph Nodes: No cervical lymphadenopathy, No supraclavicular lymphadenopathy, No axillary lymphadenopathy., and No inguinal lymphadenopathy.. Respiratory: No recent pulmonary infection, hemoptysis, chronic cough, or shortness of breath at rest Rheumatologic: Joint deformities: left hip and ankle pain Right Ankle Exam Right ankle exam is normal. Tenderness The patient is experiencing no tenderness. Range of Motion The patient has normal right ankle ROM. Dorsiflexion: normal Plantar flexion: normal Eversion: normal Inversion: normal Muscle Strength Dorsiflexion: 5/5 Plantar flexion: 5/5 Anterior tibial: 5/5 Posterior tibial: 5/5 Gastrocsoleus: 5/5 Peroneal muscle: 5/5 Tests Anterior drawer: negative Varus tilt: negative Other Erythema: absent Sensation: normal Pulse: present Left Ankle Exam Tenderness The patient is experiencing tenderness in the ATF, CF, deltoid and medial malleolus. Swelling: mild Range of Motion Dorsiflexion: abnormal Plantar flexion: abnormal Eversion: abnormal Inversion: abnormal Muscle Strength Dorsiflexion: 4/5 Plantar flexion: 4/5 Anterior tibial: 4/5 Posterior tibial: 4/5 Gastrocsoleus: 4/5 Peroneal muscle: 4/5 Tests Anterior drawer: negative Varus tilt: negative Other Erythema: absent Sensation: normal Pulse: present Imaging: Last XR Hip/Pelvis - Impression Only XR HIP GENERAL 3V PELV/AP/LAT LEFT Exam End: 09/18/2022 12:54 PM (Final result) Impression: IMPRESSION: Left hip grossly unremarkable. Management Department Chair: KISHA Transcribe Date/Time: Sep 18 2022 3:33P ... Assessment and Plan: Impression: Encounter Diagnosis ICD-10-CM 1. Chronic pain of left ankle M25.572 MRI ANKLE WO IVCON LEFT G89.29 2. Stress fracture of left ankle, initial encounter M84.372A 3. Ankle instability, left M25.372 Plan: Today, in detail, through a thorough evaluation, we discussed possible etiologies of pain and our plans for further diagnostic and therapeutic interventions. We discussed strategies for decreasing p (more content not included)... [facility] 09-18-2022 Note HNO ID: [id number] Author: RT Tamara(R) Service: ? Author Type: Technologist Type: Progress Notes Filed: 09/18/2022 12:56 PM Note Text: Radiology Service Progress Note PATIENT NAME: Pee Fish DATE OF SERVICE: September 18, 2022 TIME: 12:56 PM PATIENT IDENTITY VERIFICATION COMPLETED USING TWO (2) IDENTIFIERS: Name and Date of confirmed by patient verbally. FALL SCREENING: Has the patient had 2 falls in the last year or 1 fall with injury or currently using an Ambulatory Assistive Device (Walker, Cane, Wheelchair, Crutches, etc.)? No PATIENT GENDER DATA: Female. status: : No status: NO. PATIENT RELEVANT IMPLANT DATA REVIEWED: Not Applicable RADIOLOGY DEPARTMENT: General X-ray: Exam(s) Completed: Pelvis X-Ray: Pelvis with Hip Left PERIPHERAL IV DATA: Not applicable SIGNED BY: RT Tamara(R) September 18, 2022 12:56 PM [facility] 09-18-2022 History of Presen t illness Narrative PT ASSESSMENT - CASTING ROOM Pee presents for Application of boot. Applied low fracture walker to Left ankle. Patient electronically signed Yandel CHO. Patient has been instructed in Care and proper application of brace. Sherita Galicia Ma Reason for Visit/Chief Complaint Pee Fish is a 66 year old female who presents today for a new evaluation of following complaint: Patient presents with: Left Hip - Pain History of Present Illness: PAIN EVALUATION 09/18/2022 1316 Pain Level: 2 Pain Location: Hip-Left Description: Aching;Dull;Sharp Duration Amount of Time: 2 Duration Units: Years Frequency: Intermittent HPI: Pee Fish is a 66 year old female presenting today with L hip pain and left ankle pain. Pain has been increasing the last couple years. 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 Pt likes to walk for exercise and has difficulty completing long intervals. States has sharp pain in ankle that Dr. Snyder has seen her for before at [facility] and then hip pain as well. Pain history is noted as above. Xray done today Previous Treatments: Ice: No Heat: No Brace: No NSAIDs: No Injections: No Surgeries: No Physical Therapy: No Review of Systems: Patient did not have, and does not currently have, any weight loss, malaise, fever, chills, headache, chest pain, chest pressure, palpitations, cough, shortness of breath, orthopnea, paroxsymal nocturnal dyspnea, nausea, vomiting, diarrhea, constipation, melena, hematochezia, urinary difficulties, prolonged bleeding, easily bruising, heat or cold intolerance, new onset joint pain or swelling, new onset extremity weakness or numbness, new onset auditory or visual disturbances, lightheadedness, dizziness, partial loss of consciousness or full loss of consciousness. Current Outpatient Medications on File Prior to Visit Medication Sig estradiol (ESTRACE) 0.01 % (0.1 mg/gram) vaginal cream use a small amount of cream to lower vagina qhs twice weekly COMPOUNDED PRESCRIPTION Allergy injection once weekly rosuvastatin (CRESTOR) 10 mg ORAL tablet Take 1 tablet by mouth daily at bedtime. calcium carbonate/vitamin d3(CALCIUM 600 + D(3) 600 MG (1,500)-200 UNIT TAB) Take one(1) tablet twice daily. sertraline hcl(ZOLOFT 100 MG TAB) Take one(1) tablet daily. No current facility-administered medications on file prior to visit. ALLERGIES Allergen Reactions Environmental [Othe* Other: See Comments Grass, pollen, tree's, dust..... Penicillins Rash Physical Exam: Vitals: There were no vitals taken for this visit. Psych: Pleasant, good affect and mood General Appearance: Well appearing, alert, in no acute distress, well-hydrated, well nourished.. Skin: Skin color, texture, turgor normal, no suspicious rashes or lesions. Peripheral Pulses: Normal. Neurologic: Gait normal. Reflexes normal and symmetric. Sensation grossly intact.. Lymph Nodes: No cervical lymphadenopathy, No supraclavicular lymphadenopathy, No axillary lymphadenopathy., and No inguinal lymphadenopathy.. Respiratory: No recent pulmonary infection, hemoptysis, chronic cough, or shortness of breath at rest Rheumatologic: Joint deformities: left hip and ankle pain Right Ankle Exam Right ankle exam is normal. Tenderness The patient is experiencing no tenderness. Range of Motion The patient has normal right ankle ROM. Dorsiflexion: normal Plantar flexion: normal Eversion: normal Inversion: normal Muscle Strength Dorsiflexion: 5/5 Plantar flexion: 5/5 Anterior tibial: 5/5 Posterior tibial: 5/5 Gastrocsoleus: 5/5 Peroneal muscle: 5/5 Tests Anterior drawer: negative Varus tilt: negative Other Erythema: absent Sensation: normal Pulse: present Left Ankle Exam Tenderness The patient is experiencing tenderness in the ATF, CF, deltoid and medial malleolus. Swelling: mild Range of Motion Dorsiflexion: abnormal Plantar flexion: abnormal Eversion: abnormal Inversion: abnormal Muscle Strength Dorsiflexion: 4/5 Plantar flexion: 4/5 Anterior tibial: 4/5 Posterior tibial: 4/5 Gastrocsoleus: 4/5 Peroneal muscle: 4/5 Tests Anterior drawer: negative Varus tilt: negative Other Erythema: absent Sensation: normal Pulse: present Imaging: Last XR Hip/Pelvis - Impression Only XR HIP GENERAL 3V PELV/AP/LAT LEFT Exam End: 09/18/2022 12:54 PM (Final result) Impression: IMPRESSION: Left hip grossly unremarkable. Management Department Chair: KISHA Transcribe Date/Time: Sep 18 2022 3:33P ... Assessment and Plan: Impression: Encounter Diagnosis ICD-10-CM 1. Chronic pain of left ankle M25.572 MRI ANKLE WO IVCON LEFT G89.29 2. Stress fracture of left ankle, initial encounter M84.372A 3. Ankle instability, left M25.372 Plan: Today, in detail, through a thorough evaluation, we discussed possible etiologies of pain and our plans for further diagnostic and therapeutic interventions. We discussed strategies for decreasing pain and improving strength, stability and motion. Patient's questions were answered in detailed. Patient verbalizes understanding and agrees with the treatment plan as discussed. Patient has diffuse pain and swelling and ttp along talus with slight touch after prolonged episode of walking at school concerning for talus stress fracture as swollen and sharp pain along tib fred joint Mri Cam boot Surgical mri for possible lat mall surgery for chronic instability of ankle as well documented in this encounter [facility] 09-18-2022 History of Presen t illness Narrative Radiology Service Progress Note PATIENT NAME: Pee Fish DATE OF SERVICE: September 18, 2022 TIME: 12:56 PM PATIENT IDENTITY VERIFICATION COMPLETED USING TWO (2) IDENTIFIERS: Name and Date of confirmed by patient verbally. FALL SCREENING: Has the patient had 2 falls in the last year or 1 fall with injury or currently using an Ambulatory Assistive Device (Walker, Cane, Wheelchair, Crutches, etc.)? No PATIENT GENDER DATA: Female. status: : No status: NO. PATIENT RELEVANT IMPLANT DATA REVIEWED: Not Applicable RADIOLOGY DEPARTMENT: General X-ray: Exam(s) Completed: Pelvis X-Ray: Pelvis with Hip Left PERIPHERAL IV DATA: Not applicable SIGNED BY: RT Tamara(R) September 18, 2022 12:56 PM documented in this encounter [facility] Evaluation note Diagnosis Onset Date Impingement syndrome, shoulder, left acute [facility] Work Phone: Evaluation noteNo assessment information available [facility] Work Phone: Evaluation note* Diagnosis Left hip pain- Primary Pain in joint, pelvic region and thigh [facility] Diagnosis Chronic pain of left ankle- Primary Stress fracture of left ankle, initial encounter Ankle instability, left documented in this encounter [facility] note* Diagnosis Left hip pain Pain in joint, pelvic region and thigh documented in this encounter [facility] note* Diagnosis Chronic pain of left ankle documented in this encounter [facility] note* Diagnosis Chronic pain of left ankle documented in this encounter [facility] for referral (narrative)* Diagnostic Procedure Only (Routine) - Pending Review Specialty Diagnoses / Procedures Referred By Contac t Referred To Contact XR IMAGING Diagnoses Left hip pain Procedures XR HIP GENERAL 3V PELV/AP/LAT LEFT RADEX HIP UNILATERAL WITH PELVIS 2-3 VIEWS Mejia Snyder DO [address] [place] [address] Xr Imaging Referral ID Status Reason Start Date Expiration Date Visits Requested Visits Authorized [id number] Pending Review Auto-Generat ed Referral 09/10/2022 10/10/2023 1 1 [facility] for referral (narrative)* Diagnostic Procedure Only (Routine) - Closed Specialty Diagnoses / Procedures Referred By Contac t Referred To Contact XR IMAGING Diagnoses Left hip pain Procedures XR HIP GENERAL 3V PELV/AP/LAT LEFT RADEX HIP UNILATERAL WITH PELVIS 2-3 VIEWS Mejia Snyder DO [address] [place] [address] [place] [address] Referral ID Status Reason Start Date Expiration Date V isits Requested Visits Authorized [id number] Closed Auto-Generate d Referral 09/10/2022 10/10/2023 1 1 [facility] for referral (narrative)* Diagnostic Procedure Only (Routine) - Closed Specialty Diagnoses / Procedures Referred By Contac t Referred To Contact XR IMAGING Diagnoses Chronic pain of left ankle Procedures XR ANKLE GENERAL 3V AP/LAT/OBL LEFT RADEX ANKLE COMPLETE MINIMUM 3 VIEWS Mejia Snyder DO [address] [place] [address] [place] [address] Referral ID Status Reason Start Date Expiration Date V isits Requested Visits Authorized [id number] Closed Auto-Generate d Referral 11/12/2022 12/12/2023 1 1 [facility] for visit Narrative* Diagnostic Procedure Only (Routine) - Closed Specialty Diagnoses / Procedures Referred By Contac t Referred To Contact XR IMAGING Diagnoses Left hip pain Procedures XR HIP GENERAL 3V PELV/AP/LAT LEFT RADEX HIP UNILATERAL WITH PELVIS 2-3 VIEWS Mejia Snyder DO [address] [place] [address] [place] [address] Referral ID Status Reason Start Date Expiration Date V isits Requested Visits Authorized [id number] Closed Auto-Generate d Referral 09/10/2022 10/10/2023 1 1 [facility] for visit Narrative* Diagnostic Procedure Only (Routine) - Closed Specialty Diagnoses / Procedures Referred By Contac t Referred To Contact XR IMAGING Diagnoses Chronic pain of left ankle Procedures XR ANKLE GENERAL 3V AP/LAT/OBL LEFT RADEX ANKLE COMPLETE MINIMUM 3 VIEWS Mejia Snyder DO [address] [place] [address] [place] [address] Referral ID Status Reason Start Date Expiration Date V isits Requested Visits Authorized [id number] Closed Auto-Generate d Referral 11/12/2022 12/12/2023 1 1 [facility] Chief Complaint and Reason for Visit Chief Complaint DYSPHAGIA R13.10 LEFT SHOULDER Reason for Visit Impingement syndrome , shoulder, left Chief Complaint DYSPHAGIA R13.10 LEFT SHOULDER SCREENING Reason for Visit Impingement syndrome , shoulder, left Chief Complaint SCREENING Chief Complaint Cough Chief Complaint Cough CMP Chief Complaint SCREENING IRON DEF/ANEMIA ABDOMINAL PAIN Family History No Family History Records Found Relationship Condition Age at Onset Recorded Date/T linda father Hypertension Unknown Malignant neoplasm of lung Unknown mother Cardiac disease Unknown Cerebrovascular accident (CVA) Unknown Advance Directives No Advanced Directives Records Found Advance Directive Response Recorded Date/ Time Living Will No August 30, 2021 1:55pm Power of Tacker Elastic Band No August 30 1:55pm Advance Directive Response Recorded Date/ Time Living Will No August 30, 2021 12:55pm Power of Tacker Elastic Band No August 30 12:55pm Reason for Referral Specialty Diagnoses / Procedures Referred By Avery t Referred To Contact MR IMAGING Diagnoses Chronic pain of left ankle Procedures MRI ANKLE WO IVCON LEFT MRI ANY JT LOWER EXTREM W/O CONTRAST Mejia Locke, DO [address] [place] [address] Mr Imaging Referral ID Status Reason Start Date Expiration Date Visits Requested Visits Authorized [id number] Authorized Auto-Generat ed Referral 09/18/2022 10/18/2023 1 1 Specialty Diagnoses / Procedures Referred By Avery t Referred To Contact MR IMAGING Diagnoses Chronic pain of left ankle Procedures MRI ANKLE WO IVCON LEFT MRI ANY JT LOWER EXTREM W/O CONTRAST Mejia Locke, DO [address] [place] [address] [place] [address] Referral ID Status Reason Start Date Expiration Date V isits Requested Visits Authorized [id number] Closed Auto-Generate d Referral 09/18/2022 10/18/2023 1 1 Summary Purpose Additional Source Comments Source Comments (unrecognize d section and content) In the event this informatio n is protected by the Federal Confidentiality of Alcohol and Drug Abuse Patient Records regulations: The Federal rules restrict any use of the information to criminally investigate or prosecute any alcohol or drug abuse patient.[facility] the event this information is protected by the Federal Confidentiality of Alcohol and Drug Abuse Patient Records regulations: The Federal rules restrict any use of the information to criminally investigate or prosecute any alcohol or drug abuse patient.[facility] the event this information is protected by the Federal Confidentiality of Alcohol and Drug Abuse Patient Records regulations: The Federal rules restrict any use of the information to criminally investigate or prosecute any alcohol or drug abuse patient.[facility] the event this information is protected by the Federal Confidentiality of Alcohol and Drug Abuse Patient Records regulations: The Federal rules restrict any use of the information to criminally investigate or prosecute any alcohol or drug abuse patient.[facility] the event this information is protected by the Federal Confidentiality of Alcohol and Drug Abuse Patient Records regulations: The Federal rules restrict any use of the information to criminally investigate or prosecute any alcohol or drug abuse patient.[facility] the event this information is protected by the Federal Confidentiality of Alcohol and Drug Abuse Patient Records regulations: The Federal rules restrict any use of the information to criminally investigate or prosecute any alcohol or drug abuse patient.[facility] Center[facility] the event this information is protected by the Federal Confidentiality of Alcohol and Drug Abuse Patient Records regulations: The Federal rules restrict any use of the information to criminally investigate or prosecute any alcohol or drug abuse patient.[facility] Care Teams (unrecognized sec tion and content) Front End Alignment Specialist Relationship Specialty Start Date End Date Sherita Hendricks PCP - General 01/07/08 Team Status: Active Member Role Status Dates Dr. Sherita Hendricks MD Family Provider Active Dr. Sherita Hendricks MD Primary Care Provider Active Team Status: Inactive Member Role Status Dates Dr. Sherita Hendricks MD Primary Care Provider Active Dr. Ced Arias MD Attending Provider Active Team Status: Inactive Member Role Status Dates Dr. Sherita Hendricks MD Primary Care Provider Active Dr. Ced Mclean DO Attending Provider, Referring Provider Active Team Status: Inactive Member Role Status Dates Dr. Sherita Hendricks MD Primary Care Prov ider, Attending Provider, Referring Provider Active Front End Alignment Specialist Relationship Specialty Start Date End Date Sherita Hendricks PCP - General 01/07/08 Front End Alignment Specialist Relationship Specialty Start Date End Date Sherita Hendricks PCP - General 01/07/08 Front End Alignment Specialist Relationship Specialty Start Date End Date Sherita Hendricks PCP General 01/07/08 Team Status: Inactive Member Role Status Dates Dr. Sherita Hendricks MD Primary Care Provider Active Dr. Anish Fuchs MD Attending Provider, Referring Provider Active Team Status: Active Member Role Status Dates Dr. 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 Diagnoses / Procedures Referred By Contalfredo t Referred To Contact MR IMAGING Diagnoses Chronic pain of left ankle Procedures MRI ANKLE WO IVCON LEFT MRI ANY JT LOWER EXTREM W/O CONTRAST Mejia Locke DO [address] [place] [address] [place] [address] Referral ID Status Reason Start Date Expiration Date V isits Requested Visits Authorized [id number] Closed Auto-Generate d Referral 09/18/2022 10/18/2023 1 1 INFORMATION SOURCE (unrecogn ized section and content) DATE CREATED AUTHOR 11/21/2022 [facility] DATE CREATED AUTHOR AUTHOR'S ORGANIZ ATION 12/19/2022 [facility] DATE CREATED AUTHOR AUTHOR'S ORGANIZ ATION 07/27/2024 [facility] FOR RECORDS PERTAINING TO PATIENTS WHO ARE OR HAVE BEEN ENROLLED IN A CHEMICAL DEPENDENCY/SUBSTANCEABUSE PROGRAM, SOME INFORMATION MAY BE OMITTED. This clinical summary was aggregated from multiple sources. Caution should be exercised in using it in the provision of clinical care. This summary normalizes information from multiple sources, and as a consequence, information in this document may materially change the coding, format and clinical context of patient data. In addition, data may be omitted in some cases. CLINICAL DECISIONS SHOULD BE BASED ON THE PRIMARY CLINICAL RECORDS. [employer] [facility]. provides no warranty or guarantee of the accuracy or completeness of information in this document.
== END | disposition home or self-care (01) ==
LOC: LAB 09:40
PROVIDERS: PCP Family Medicine; Referring Provider Physician Assistant; Visit Provider Physician Assistant
DX: E04.2 Nontoxic multinodular goiter (principal); E83.42 Hypomagnesemia; E61.1 Iron deficiency
CPT/HCPCS: 36415; 80053; 82728; 83540; 83735; 84443

== ENCOUNTER 2025-01-18 09:19 | Outpatient (CLI) | payer MEDICARE, SELFPAY ==
[2025-01-18 09:31] VITALS: BP 115/58; PULSE 77; RESP 16; TEMP 35.8; O2SAT 97; BMI 27.0
[2025-01-18] MEDS: 0.9% NaCl Peripheral Flush Adult IV ×2 (10:03→10:27)
[2025-01-18 10:28] VITALS: BP 111/58; PULSE 72; RESP 16; TEMP 36.7; BMI 27.0
== END 2025-01-18 23:59 | disposition home or self-care (01) ==
LOC: MEDOUTP 09:19
PROVIDERS: PCP Family Medicine; Referring Provider Internal Medicine Endocrinology, Diabetes & Metabolism; Visit Provider Internal Medicine Endocrinology, Diabetes & Metabolism
DX: M81.0 Age-related osteoporosis without current pathological fracture (principal)
CPT/HCPCS: 96365; A4216; J3489

== ENCOUNTER → 2025-02-03 | Outpatient (CLI) | payer MEDICARE, SELFPAY ==
--- NOTE | 2025-02-03 09:48 | BI_ITS ---
EXAM: SCRN MAMM (CAD)W/JUAN CARLOS BILAT DATE: 02/03/2025 CLINICAL HISTORY: F, Age 69 y/o , BREAST CANCER TECHNIQUE: SCRN MAMM (CAD)W/JUAN CARLOS BILAT COMPARISON: Prior exam(s) dated 12/24/2023, 12/22/2022, 12/19/2021. FINDINGS: TISSUE DENSITY: The breasts are almost entirely fatty. Bilateral Breast Mammographic Findings: No significant masses, calcifications or other abnormalities are identified. BI/SCRN MAMM (CAD)W/JUAN CARLOS BILAT IMPRESSION: There is no mammographic evidence of malignancy. OVERALL FINAL ASSESSMENT BI-RADS 1: NEGATIVE. RECOMMENDATION: Routine annual follow-up in 1 Year A letter with findings and recommendations will be mailed to the patient. Reading Location: [id number]
== END | disposition home or self-care (01) ==
LOC: OPBI 09:47
PROVIDERS: PCP Family Medicine
DX: Z12.31 Encounter for screening mammogram for malignant neoplasm of breast (principal)
CPT/HCPCS: 77063; 77067

== ENCOUNTER → 2025-04-18 | Outpatient (CLI) | payer MEDICARE, SELFPAY ==
[2025-04-18 10:20] LABS: AST(SGOT) 29 U/L (<=31); Alanine Aminotransfer ALT/SGPT 24 U/L (<=34); Albumin, Serum 4.5 g/dL (3.4-4.8); Alkaline Phosphatase 62 U/L (35-104); Anion Gap 11 (5-15); BUN 17 mg/dL (4-19); BUN/Creat Ratio 17.5 RATIO (10-20); Calcium,Total 10.1 mg/dL (7.6-11.0); Carbon Dioxide 25.9 mmol/L (21.0-32.0); Chloride 105 mmol/L (98-108); Globulin 2.7 g/dL (2.2-4.2); Glucose 109 mg/dL (70-99); Magnesium 2.2 mg/dL (1.5-2.2); Potassium 4.5 mmol/L (3.3-5.1); Vitamin D,25 Hydroxy 48.7 ng/mL (30-100)
== END | disposition home or self-care (01) ==
LOC: LAB 08:46
PROVIDERS: PCP Family Medicine; Referring Provider Physician Assistant; Visit Provider Physician Assistant
DX: E04.2 Nontoxic multinodular goiter (principal); E55.9 Vitamin D deficiency, unspecified
CPT/HCPCS: 36415; 80053; 82306; 83735; 84443